=== PATIENT | female | born 1935 | race African-American/Black ===

== ENCOUNTER 2017-10-12 16:04 | Emergency (ER) | payer OTHER ==
[2017-10-12 17:37] LABS: Potassium 4.1 mEq/L (3.6-5.0)
[2017-10-12 17:38] LABS: Absolute Lymphocytes (CBC) 2.7 K/uL (0.7-4.9); Absolute Monocytes 0.4 K/uL (0.1-1.3); Absolute Neutrophil 2.5 K/uL (1.8-8.0); Basophils % 0.6 % (0-1.3); Eosinophils % 6.1 % (0-4.4); Hematocrit 32.8 % (36.0-45.0); Lymphocytes % 44.9 % (15.3-44.8); MCH 30.7 pg (27.0-35.0); MCV 90.6 fL (80-100); MPV 8.5 fL (7.6-11.3); Monocytes % 6.3 % (3.3-12.3); RBC Red Blood Cell Count 3.62 M/uL (3.86-4.86)
[2017-10-12 17:42] LABS: Protime INR 0.99
[2017-10-12 17:43] LABS: Albumin 4.1 g/dL (3.2-5.5); Bilirubin Direct 0.1 mg/dL (0-0.2); Bilirubin Total 0.5 mg/dL (0.3-1.2); Magnesium 1.8 mg/dL (1.8-2.5); Protein, Total 7.9 g/dL (6.0-8.3)
[2017-10-12 17:47] LABS: CKMB Creatine Kinase MB 1.7 ng/ml (0.3-4.0)
--- NOTE | 2017-10-12 17:57 | RAD REPORT ---
EXAM DESCRIPTION: US - Abdomen Exam Limited - 10/12/2017 5:41 pm CLINICAL HISTORY: Abdominal pain. COMPARISON: 2016 FINDINGS: The gallbladder is contracted. This limits evaluation of the lumen. An obvious gallstone i s not seen. The gallbladder wall is not thickened. The biliary tree is normal caliber. IMPRESSION: Contracted gallbladder. If clinically indicated further evaluation with a nuclear medici ne HIDA scan could be obtained
--- NOTE | 2017-10-12 18:04 | RAD REPORT ---
EXAM DESCRIPTION: Riky Single View10/12/2017 5:58 pm CLINICAL HISTORY: Chest pain COMPARISON: June 2016 FINDINGS: The lungs appear clear of acute infiltrate. The heart is normal size IMPRESSION: No acute abnormalities displayed
[2017-10-12 18:21] LABS: Urine Blood NEGATIVE (NEG); Urine Glucose TRACE (NEG); Urine Protein TRACE (NEG); Urine Specific Gravity 1.025 (1.005-1.030)
--- NOTE | 2017-10-12 18:43 | RAD REPORT ---
EXAM DESCRIPTION: CT - Abdomen Pelvis Wo Contrast - 10/12/2017 6:26 pm CLINICAL HISTORY: Abdominal pain right upper quadrant pain x4 days COMPARISON: 2016 TECHNIQUE: Computed axial tomography of the abdomen and pelvis was obtained. IV and oral contrast we re not requested. All CT scans are performed using dose optimization technique as appropriate and may include automated exposure control or mA/KV adjustment according to patient size. FINDINGS: The evaluation of solid organs, vessels and bowel is limited secondary to the lack of con trast administration. An 8 millimeter right renal calculus is present without hydronephrosis. The Hounsfield unit 553. A 5 centimeter left renal cyst is present. Hepatic granulomata are seen. A 23 millimeter low-density mass is present within the spleen. This has enlarged since 2016 Pancreas and adrenals appear grossly normal. The appendix is normal. There is no evidence of diverticulitis. Spondylosis involves lumbar spine resulting spinal stenosis A tiny umbilical hernia contains fat. The gallbladder is contracted IMPRESSION: 8 millimeter nonobstructing right renal calculus Contracted gallbladder 23 millimeter low-density mass within the spleen has enlarged since 2016. Nonemergent splenic ultraso und is recommended for further evaluation
[2017-10-12] MEDS ORDERED: NA CHLORIDE 0.9% 1,000 ML ONE (18:52)
--- NOTE | 2017-10-12 19:30 | EDPHYS ---
Physician Documentation [facility] Name: Geovanna Del Toro Age: 82 yrs Sex: Female : 1935 Arrival Date: 10/12/2017 Time: 16:10 Bed 16 Private MD: ED Physician Kai Castano HPI: 10/12 17:00 This 82 yrs old Black Female presents to ER via Ambulatory with complaints of Chest snw Pain > 30 y/o, Abd Pain > 50 y/o. 17:00 The patient or guardian reports chest pain that is located primarily in the epigastric snw area, anterior chest wall, right. Onset: suddenly, 2 day(s) ago, and became persistent. The pain does not radiate. Associated signs and symptoms: Pertinent positives: abdominal pain, chest pain. The chest pain is described as causing indigestion, a pressure. Duration: The patient or guardian reports multiple episodes, that have now resolved. Severity of pain: At its worst the pain was moderate. It is unknown whether or not the patient has had similar symptoms in the past. The patient has been recently seen by a physician: the patient's primary care provider, with different complaint(s), and apparently was diagnosed with UTI placed on Abx. Historical: - Allergies: 16:28 No Known Allergies; aj - Home Meds: 16:35 atorvastatin 20 mg oral tab 1 tab once daily [Active]; gabapentin 100 mg Oral cap 3 rb1 times per day [Active]; amlodipine 10 mg tab 1 tab once daily [Active]; Zantac 150 mg Oral tab 1 tab 2 times per day [Active]; metoprolol tartrate 100 mg Oral tab 1 tab 2 times per day [Active]; tramadol 50 mg Oral tab 1 tab every 4 hours [Active]; acetaminophen-codeine 300-30 mg Oral tab 1 tab every 4-6 hours [Active]; hydralazine 10 mg Oral tab 1 tab 4 times per day [Active]; losartan-hydrochlorothiazide 100-25 mg Oral tab 1 tab once daily [Active]; - PMHx: 16:28 CVA; Diabetes - IDDM; Hypertension; Hyperlipidemia; aj - PSHx: 16:28 Tubal ligation; aj - Immunization history:: Adult Immunizations up to date. - Social history:: Smoking status: Patient/guardian denies using tobacco. ROS: 16:56 Eyes: Negative for injury, pain, redness, and discharge, ENT: Negative for injury, snw pain, and discharge, Neck: Negative for injury, pain, and swelling, Cardiovascular: Negative for chest pain, palpitations, and edema, Respiratory: Negative for shortness of breath, cough, wheezing, and pleuritic chest pain, Back: Negative for injury and pain, : Negative for injury, bleeding, discharge, and swelling, MS/Extremity: Negative for injury and deformity, Skin: Negative for injury, rash, and discoloration, Neuro: Negative for headache, weakness, numbness, tingling, and seizure. 16:56 : Negative for injury, bleeding, discharge, and swelling, taking abx for UTI x 2 days 16:56 Constitutional: Positive for abdominal and chest pain under right breast. 16:56 Abdomen/GI: Positive for abdominal pain, of the right upper quadrant and epigastric area, worse with lying down. Exam: 16:56 Constitutional: This is a well developed, well nourished patient who is awake, alert, snw and in no acute distress. Head/Face: Normocephalic, atraumatic. Eyes: Pupils equal round and reactive to light, extra-ocular motions intact. Lids and lashes normal. Conjunctiva and sclera are non-icteric and not injected. Cornea within normal limits. Periorbital areas with no swelling, redness, or edema. ENT: Nares patent. No nasal discharge, no septal abnormalities noted. Tympanic membranes are normal and external auditory canals are clear. Oropharynx with no redness, swelling, or masses, exudates, or evidence of obstruction, uvula midline. Mucous membranes moist. Neck: Trachea midline, no thyromegaly or masses palpated, and no cervical lymphadenopathy. Supple, full range of motion without nuchal rigidity, or vertebral point tenderness. No Meningismus. Chest/axilla: Normal chest wall appearance and motion. Nontender with no deformity. No lesions are appreciated. Cardiovascular: Regular rate and rhythm with a normal S1 and S2. No gallops, murmurs, or rubs. Normal PMI, no JVD. No pulse deficits. Respiratory: Lungs have equal breath sounds bilaterally, clear to auscultation and percussion. No rales, rhonchi or wheezes noted. No increased work of breathing, no retractions or nasal flaring. Back: No spinal tenderness. No costovertebral tenderness. Full range of motion. 16:56 Skin: Warm, dry with normal turgor. Normal color with no rashes, no lesions, and no evidence of cellulitis. MS/ Extremity: Pulses equal, no cyanosis. Neurovascular intact. Full, normal range of motion. Neuro: Awake and alert, GCS 15, oriented to person, place, time, and situation. Cranial nerves II-XII grossly intact. Motor strength 5/5 in all extremities. Sensory grossly intact. Cerebellar exam normal. Normal gait. 16:56 Abdomen/GI: Inspection: abdomen appears normal, Bowel sounds: active, all quadrants, Palpation: abdomen is soft and non-tender. Vital Signs: 16:28 BP 153 / 51; Pulse 63; Resp 20; Temp 98.4; Pulse Ox 99% on R/A; Weight 79.38 kg; Height aj 5 ft. 5 in. (165.10 cm); Pain 8/10; 17:30 BP 154 / 58; Pulse 64; Resp 18; Pulse Ox 99% on R/A; rb1 18:40 BP 148 / 63; Pulse 66; Resp 17; Pulse Ox 97% on R/A; mh5 16:28 Body Mass Index 29.12 (79.38 kg, 165.10 cm) aj MDM: 16:34 Patient medically screened. snw 19:27 Data reviewed: vital signs, nurses notes. Data interpreted: Pulse oximetry: on room air snw is 97 %. Interpretation: normal. Counseling: I had a detailed discussion with the patient and/or guardian regarding: the historical points, exam findings, and any diagnostic results supporting the discharge/admit diagnosis, the presence of at least one elevated blood pressure reading (>120/80) during this emergency department visit, lab results, radiology results, the need for outpatient follow up, to return to the emergency department if symptoms worsen or persist or if there are any questions or concerns that arise at home. Special discussion: Based on the patient's history, exam, and Dx evaluation, there is no indication for emergent intervention or inpatient Tx. It is understood by the patient/guardian that if the Sx's persist or worsen they need to return immediately for re-evaluation. Based on the patient's Hx, exam, and Dx evaluation, there is no indication for emergent surgery or inpatient Tx. It is understood by the patient/guardian that if the Sx's persist or worsen they need to return immediately for re-evaluation. I have referred the patient to see his PCP for further evaluation of high blood pressure. Based on the history and exam findings, there is no indication for further emergent testing or inpatient evaluation. I discussed with the patient/guardian the need to see the primary care provider for further evaluation of the symptoms. 19:28 ED course: [facility] contacted, pt is currently on Bactrim. Will stop Bactrim and begin snw Augmentin and Macrobid. 10/12 16:37 Order name: Basic Metabolic Panel; Complete Time: 18:02 snw 10/12 16:37 Order name: BNP; Complete Time: 18:02 snw 10/12 16:37 Order name: CBC with Diff; Complete Time: 18:02 snw 10/12 16:37 Order name: Ckmb; Complete Time: 18:02 snw 10/12 16:37 Order name: CPK; Complete Time: 18:02 snw 10/12 16:37 Order name: LFT's; Complete Time: 18:02 snw 10/12 16:37 Order name: Magnesium; Complete Time: 18:02 snw 10/12 16:37 Order name: PT-INR; Complete Time: 18:02 snw 10/12 16:37 Order name: Ptt, Activated; Complete Time: 18:02 snw 10/12 16:37 Order name: Troponin (emerg Dept Use Only); Complete Time: 17:44 snw 10/12 16:37 Order name: XRAY Chest (1 view); Complete Time: 18:04 snw 10/12 17:04 Order name: Urine Dipstick--Ancillary (enter results); Complete Time: 18:25 ag 10/12 17:10 Order name: US Abdomen Limited; Complete Time: 18:02 snw 10/12 18:10 Order name: CT Abd/Pelvis - Without Cont; Complete Time: 18:51 snw 10/12 16:37 Order name: EKG; Complete Time: 16:38 snw 10/12 16:37 Order name: Cardiac monitoring; Complete Time: 17:21 snw 10/12 16:37 Order name: EKG - Nurse/Tech; Complete Time: 18:24 snw 10/12 16:37 Order name: IV Saline Lock; Complete Time: 17:21 snw 10/12 16:37 Order name: Labs collected and sent; Complete Time: 17:21 snw 10/12 16:37 Order name: O2 Per Protocol; Complete Time: 17:21 snw 10/12 16:37 Order name: O2 Sat Monitoring; Complete Time: 17:21 snw 10/12 16:37 Order name: Urine Dipstick-Ancillary (obtain specimen); Complete Time: 18:24 snw Administered Medications: 19:15 Drug: NS 0.9% 1000 ml {Note: Administered 250 bolus as verbally ordered by JACEK Piña.} ao Route: IV; Rate: 125 ml/hr; Site: left antecubital; 20:24 Follow up: IV Status: Order to discontinue infusion ao 20:10 Drug: Rocephin 1 grams Route: IV; Rate: calculated rate; Site: left antecubital; ao 20:24 Follow up: IV Status: Completed infusion; IV Intake: 10ml ao Disposition: 10/12/17 19:29 Discharged to Home. Impression: Urinary tract infection, site not specified. - Condition is Stable. - Discharge Instructions: Hypertension, Urinary Tract Infection, Abdominal Pain, Women. - Prescriptions for Augmentin 875- 125 mg Oral Tablet - take 1 tablet by ORAL route every 12 hours for 10 days; 20 tablet. Nexium 20 mg Oral Capsule - take 1 capsule by ORAL route once daily; 20 capsule. Macrobid 100 mg Oral Capsule - take 1 capsule by ORAL route every 12 hours for 10 days; 20 capsule. - Medication Reconciliation Form, Thank You Letter, Antibiotic Education, Prescription Opioid Use form. - Follow up: Private Physician; When: 2 - 3 days; Reason: Recheck today's complaints, Continuance of care, Re-evaluation by your physician. Follow up: Emergency Department; When: As needed; Reason: Worsening of condition. Addendum: 10/15/2017 19:01 Co-signature as Attending Physician, Kai Castano MD. g s Signatures: Dispatcher [employer] EDBelkis Worrell RN RN aj Therrien, Shelly, DIGITAL MEDIA STRATEGIST-C DIGITAL MEDIA STRATEGIST-Csnw Germaine Blanco, RN ALBERT [facility] Salazar, Lui, RN RN ao Castano, Kai, MD MD gs
--- NOTE | 2017-10-12 19:30 | ER ---
Nurse's Notes [facility] Name: Geovanna Del Toro Age: 82 yrs Sex: Female : 1935 Arrival Date: 10/12/2017 Time: 16:10 Bed 16 Private MD: Diagnosis: Urinary tract infection, site not specified Presentation: 10/12 16:26 Presenting complaint: Patient states: Right epigastric pain that radiates to RUQ and is aj worse when laying down. Started 4 days ago. Transition of care: patient was not received from another setting of care. Onset of symptoms was October 08, 2017. Initial Sepsis Screen: Does the patient meet any 2 criteria? No. Patient's initial sepsis screen is negative. Does the patient have a suspected source of infection? No. Patient's initial sepsis screen is negative. Care prior to arrival: None. 16:26 Method Of Arrival: Ambulatory aj 16:26 Acuity: ANDERS 3 aj Triage Assessment: 16:28 General: Appears in no apparent distress. comfortable, Behavior is calm, cooperative, aj appropriate for age. Pain: Complains of pain in epigastric area and right upper quadrant Pain currently is 8 out of 10 on a pain scale. Neuro: Level of Consciousness is awake, alert, obeys commands, Oriented to person, place, time, situation. Cardiovascular: Capillary refill < 3 seconds in bilateral fingers Patient's skin is warm and dry. Cardiovascular: Reports since epigastric pain. Respiratory: Reports shortness of breath when laying down flat Airway is patent Respiratory effort is even, unlabored, Respiratory pattern is regular, symmetrical. GI: Reports upper abdominal pain, epigastric pain. Derm: Skin is intact, is healthy with good turgor, Skin is pink, warm \T\ dry. normal. Historical: - Allergies: 16:28 No Known Allergies; aj - Home Meds: 16:35 atorvastatin 20 mg oral tab 1 tab once daily [Active]; gabapentin 100 mg Oral cap 3 rb1 times per day [Active]; amlodipine 10 mg tab 1 tab once daily [Active]; Zantac 150 mg Oral tab 1 tab 2 times per day [Active]; metoprolol tartrate 100 mg Oral tab 1 tab 2 times per day [Active]; tramadol 50 mg Oral tab 1 tab every 4 hours [Active]; acetaminophen-codeine 300-30 mg Oral tab 1 tab every 4-6 hours [Active]; hydralazine 10 mg Oral tab 1 tab 4 times per day [Active]; losartan-hydrochlorothiazide 100-25 mg Oral tab 1 tab once daily [Active]; - PMHx: 16:28 CVA; Diabetes - IDDM; Hypertension; Hyperlipidemia; aj - PSHx: 16:28 Tubal ligation; aj - Immunization history:: Adult Immunizations up to date. - Social history:: Smoking status: Patient/guardian denies using tobacco. Screenin:35 Abuse screen: Denies threats or abuse. Nutritional screening: No deficits noted. rb1 Tuberculosis screening: No symptoms or risk factors identified. Fall Risk None identified. Assessment: 16:35 General: Appears in no apparent distress. comfortable, Behavior is calm, cooperative, rb1 Denies fever. Pain: Complains of pain in epigastric area Pain does not radiate. Pain currently is 8 out of 10 on a pain scale. Pain began Isaiah. Neuro: Level of Consciousness is awake, alert, obeys commands, Oriented to person, place, time, situation. Cardiovascular: Capillary refill < 3 seconds is brisk in bilateral fingers. Respiratory: Reports shortness of breath on exertion Airway is patent Respiratory effort is even, unlabored, Respiratory pattern is regular, symmetrical. GI: No signs and/or symptoms were reported involving the gastrointestinal system. : Reports currently taking antibiotics for a UTI. Derm: Skin is dry, Skin is normal, Skin temperature is warm. 17:30 Reassessment: Patient appears in no apparent distress at this time. No changes from rb1 previously documented assessment. 18:30 Reassessment: Patient appears in no apparent distress at this time. Patient and/or rb1 family updated on plan of care and expected duration. Pain level reassessed. Patient is alert, oriented x 3, equal unlabored respirations, skin warm/dry/pink. Family at bedside. 19:17 General: Appears in no apparent distress. comfortable, Behavior is calm, cooperative. ao Pain: Complains of pain in chest. Neuro: Level of Consciousness is awake, alert, obeys commands, Oriented to person, place, time, situation. Cardiovascular: Capillary refill < 3 seconds is brisk in bilateral fingers. Respiratory: Airway is patent Respiratory effort is even, unlabored, Respiratory pattern is regular, symmetrical. GI: No signs and/or symptoms were reported involving the gastrointestinal system. : No signs and/or symptoms were reported regarding the genitourinary system. EENT: No signs and/or symptoms were reported regarding the EENT system. Derm: Skin is dry, Skin is normal, Skin temperature is warm. Musculoskeletal: Range of motion: intact in all extremities. 20:25 Reassessment: DC Instructions given to patient and family. Patient agree with the POC ao and to follow up. Vital Signs: 16:28 BP 153 / 51; Pulse 63; Resp 20; Temp 98.4; Pulse Ox 99% on R/A; Weight 79.38 kg; Height aj 5 ft. 5 in. (165.10 cm); Pain 8/10; 17:30 BP 154 / 58; Pulse 64; Resp 18; Pulse Ox 99% on R/A; rb1 18:40 BP 148 / 63; Pulse 66; Resp 17; Pulse Ox 97% on R/A; mh5 16:28 Body Mass Index 29.12 (79.38 kg, 165.10 cm) aj ED Course: 16:10 Patient arrived in ED. sb2 16:27 Triage completed. aj 16:28 Arm band placed on right wrist. Patient placed in an exam room. aj 16:34 Germaine Blanco RN is Primary Nurse. rb1 16:34 Ayana Seymour FNP-C is PHCP. snw 16:34 Kai Castano MD is Attending Physician. snw 16:35 Patient has correct armband on for positive identification. Placed in gown. Bed in low rb1 position. Call light in reach. Side rails up X 1. Pulse ox on. NIBP on. 16:35 Patient maintains SpO2 saturation greater than 95% on room air. rb1 16:40 Inserted saline lock: 22 gauge in left antecubital area, using aseptic technique. Blood rb1 collected. 17:40 US Abdomen Limited In Process Unspecified. EDMS 17:49 Note: us done portable. hr 17:56 X-ray completed. Portable x-ray completed in exam room. Patient tolerated procedure kc2 well. 17:57 XRAY Chest (1 view) In Process Unspecified. EDMS 18:26 CT Abd/Pelvis - Without Cont In Process Unspecified. EDMS 19:00 Report given to ALBERT Poe. rb1 20:24 No provider procedures requiring assistance completed. IV discontinued, intact, ao bleeding controlled, No redness/swelling at site. Pressure dressing applied. Administered Medications: 19:15 Drug: NS 0.9% 1000 ml {Note: Administered 250 bolus as verbally ordered by NP. Ayana} ao Route: IV; Rate: 125 ml/hr; Site: left antecubital; 20:24 Follow up: IV Status: Order to discontinue infusion ao 20:10 Drug: Rocephin 1 grams Route: IV; Rate: calculated rate; Site: left antecubital; ao 20:24 Follow up: IV Status: Completed infusion; IV Intake: 10ml ao Intake: 20:24 IV: 10ml; Total: 10ml. ao Outcome: 19:29 Discharge ordered by . snw 20:25 Discharged to home via wheelchair. 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 Demonstrated understanding of instructions, follow-up care, medications, Prescriptions given X 3. 20:33 Patient left the ED. ao Signatures: Dispatcher [employer] EDBelkis Worrell, RN Ayana Siddiqui, GYROSCOPE TECHNICIAN-C GYROSCOPE TECHNICIAN-Csnw Celena Pool Rebecca, RN RN rb1 Lui Salazar RN RN ao Carr, Kelsie kc2 Jesenia Dinh [facility] Alfreda Lam2
[2017-10-12] MEDS ORDERED: CEFTRIAXONE/SWI 1gm 1 GM/10 ML SYR ONE (20:08)
[2017-10-12 20:37] VITALS: TEMP 98.4
[2017-10-12 20:39] VITALS: BP 148/63; O2SAT 97
--- NOTE | 2017-10-13 16:28 | EKG ---
Test Date: 2017-10-12 Test Time: 17:49:44 Java Manager: INGA MEASUREMENT RESULTS: Intervals: Rate: 64 ID: [id number] QRSD: 78 QT: 422 QTc: 435 [place]: P: 82 ID: [id number] QRS: -10 T: 39 INTERPRETIVE STATEMENTS: Sinus rhythm with 1st degree AV block Otherwise normal ECG Compared to ECG 07/19/2016 08:38:42 Left ventricular hypertrophy no longer present Electronically Signed On 10-13-17 16:24:01 CDT by Valdez Peña
== END 2017-10-12 20:33 | disposition home or self-care (01) ==
LOC: ER 16:04
DX: N39.0 Urinary tract infection, site not specified (principal); I10 Essential (primary) hypertension; E11.9 Type 2 diabetes mellitus without complications; E78.5 Hyperlipidemia, unspecified; Z86.73 Personal history of transient ischemic attack (TIA), and cerebral infarction without residual deficits
CPT/HCPCS: 36415; 71045; 74176; 76705; 80048; 80076; 81003; 82550; 82553; 83735; 83880; 84484; 85025; 85610; 85730; 93005; 96361; 96374; 99284; J0696; J7030

== ENCOUNTER 2017-12-18 07:59 | Emergency (ER) | payer OTHER ==
[2017-12-18] MEDS ORDERED: KETOROLAC 30 MG/ML INJ ONE (08:38)
[2017-12-18] MEDS ORDERED: ONDANSETRON 4 MG/2 ML VIAL ONE ×2 (08:39→10:06)
[2017-12-18 08:44] LABS: Absolute Lymphocytes (CBC) 2.4 K/uL (0.7-4.9); Absolute Monocytes 0.3 K/uL (0.1-1.3); Absolute Neutrophil 6.7 K/uL (1.8-8.0); Basophils % 0.4 % (0-1.3); Eosinophils % 0.4 % (0-4.4); Hematocrit 32.5 % (36.0-45.0); Lymphocytes % 25.9 % (15.3-44.8); MCH 30.4 pg (27.0-35.0); MCV 92.9 fL (80-100); MPV 8.1 fL (7.6-11.3)
[2017-12-18 09:07] LABS: Bilirubin Total 0.5 mg/dL (0.2-1.0); Potassium 3.9 mmol/L (3.5-5.1); Protein, Total 8.6 g/dL (6.4-8.2)
[2017-12-18] MEDS ORDERED: MORPHINE 4 MG/ML SYR ONE (10:12)
--- NOTE | 2017-12-18 10:17 | RAD REPORT ---
EXAM DESCRIPTION: CT - Abdomen Pelvis W Contrast - 12/18/2017 9:54 am CLINICAL HISTORY: Abdominal pain, right flank pain, vomiting and diarrhea, history of kidney stones, dysuria COMPARISON: CT imaging May 2016, noncontrast CT imaging September 2017 TECHNIQUE: Biphasic, helical CT imaging of the abdomen and pelvis was performed following 100 ml non -ionic IV contrast. Oral contrast was given. All CT scans are performed using dose optimization technique as appropriate and may include automated exposure control or mA/KV adjustment according to patient size. FINDINGS: No acute findings in the lung bases. Mild bronchiectasis changes are present. No focal liver finding or identifiable change from comparison. Thin-walled cyst in the spleen has not change from September. No pancreatic or peripancreatic acute findings. Partially filled gallbladder show s no suspicious findings. No biliary tree dilatation. Gallstones can be occult. Symmetric renal function is seen with no hydronephrosis or suspicious renal mass. Large 5 centimeter exophytic lateral left renal cyst not clearly different from prior imaging. A 10 millimeter calcifica tion lower pole calyx on the right is present and unchanged. No dilated bowel loops or bowel wall thickening. No appendicitis findings. Diverticulosis is present throughout the colon but no diverticulitis, mass or acute colon process identifiable. No free air, fr ee fluid or inflammatory stranding. No mass or bulky lymphadenopathy. A very small umbilical hernia is present of no significance. The urinary bladder is without significant finding. No adrenal abnorma lity. Multiple phleboliths are seen. Uterus and ovaries show no suspicious findings. Disc and bone degenerative changes are present. No acute or destructive bone process. Vascular calcif ications are present without acute finding. IMPRESSION: Colonic diverticulosis without diverticulitis. No acute findings seen to explain lower a bdominal pain and flank pain. Patient has a stable 10 mm calcification lower pole right kidney. No obstructive component.
[2017-12-18 10:21] LABS: Urine Blood 2+ (NEG); Urine Glucose 2+ (NEG); Urine Protein 1+ (NEG); Urine Specific Gravity 1.025 (1.005-1.030)
[2017-12-18 10:21] LABS: Urine Bacteria >50 /HPF (<20); Urine Culture Reflex Order REFLEXED; Urine RBC >50 /HPF (NONE SEEN)
--- NOTE | 2017-12-18 10:56 | EDPHYS ---
Physician Documentation [facility] Name: Geovanna Del Toro Age: 82 yrs Sex: Female : 1935 Arrival Date: 12/18/2017 Time: 08:02 Bed 6 Private MD: Eladio Elder ED Physician Marcel Castellano HPI: 12/18 08:18 This 82 yrs old Black Female presents to ER via Unassigned with complaints of Abdominal ps1 Pain, Nausea/Vomiting/Diarrhea. 08:18 onset was last night. Abdominal pain additionally, states it started periumbilically ps1 and now right flank. She states that she has a history of kidney stones also. Pain rated as moderate. No dysuria. Has chills. . Historical: - Allergies: 08:25 NKA; iw - Home Meds: 08:25 acetaminophen-codeine 300-30 mg Oral tab 1 tab every 4-6 hours [Active]; amlodipine 10 iw mg tab 1 tab once daily [Active]; atorvastatin 20 mg Oral tab 1 tab once daily [Active]; gabapentin 100 mg Oral cap 3 times per day [Active]; hydralazine 10 mg Oral tab 1 tab 4 times per day [Active]; losartan-hydrochlorothiazide 100-25 mg Oral tab 1 tab once daily [Active]; metoprolol tartrate 100 mg Oral tab 1 tab 2 times per day [Active]; tramadol 50 mg Oral tab 1 tab every 4 hours [Active]; Zantac 150 mg Oral tab 1 tab 2 times per day [Active]; - PMHx: 08:25 CVA; Diabetes - IDDM; Hyperlipidemia; Hypertension; Kidney stones; iw - PSHx: 08:25 Tubal ligation; iw - Immunization history:: Adult Immunizations up to date. - Ebola Screening: : Patient negative for fever greater than or equal to 101.5 degrees Fahrenheit, and additional compatible Ebola Virus Disease symptoms Patient denies exposure to infectious person Patient denies travel to an Ebola-affected area in the 21 days before illness onset No symptoms or risks identified at this time. - Social history:: Smoking status: Patient/guardian denies using tobacco, Patient/guardian denies using alcohol. ROS: 08:18 Constitutional: Negative for fever, chills, and weight loss, Eyes: Negative for injury, ps1 pain, redness, and discharge, ENT: Negative for injury, pain, and discharge, Cardiovascular: Negative for chest pain, palpitations, and edema, Respiratory: Negative for shortness of breath, cough, wheezing, and pleuritic chest pain, Back: Negative for injury and pain, MS/Extremity: Negative for injury and deformity, Skin: Negative for injury, rash, and discoloration. 08:18 Abdomen/GI: Positive for abdominal pain, nausea, vomiting, and diarrhea. 08:18 : Positive for flank pain. Exam: 08:18 Constitutional: This is a well developed, well nourished patient who is awake, alert, ps1 and in no acute distress. Head/Face: Normocephalic, atraumatic. Eyes: Pupils equal round and reactive to light, extra-ocular motions intact. Lids and lashes normal. Conjunctiva and sclera are non-icteric and not injected. Cardiovascular: Regular rate and rhythm. No gallops, murmurs, or rubs. Normal PMI, no JVD. No pulse deficits. Respiratory: Lungs have equal breath sounds bilaterally, clear to auscultation and percussion. No rales, rhonchi or wheezes noted. No increased work of breathing, no retractions or nasal flaring. Abdomen/GI: Soft, non-tender, with normal bowel sounds. No distension or tympany. No guarding or rebound. No evidence of tenderness throughout. Skin: Warm, dry with normal turgor. Normal color with no rashes, no lesions, and no evidence of cellulitis. Vital Signs: 08:25 BP 106 / 77; Pulse 75; Resp 16; Pulse Ox 100% on R/A; iw 09:12 BP 141 / 69; Pulse 78; Resp 22; Pulse Ox 96% on R/A; Pain 2/10; ch 10:44 BP 145 / 68; Pulse 75; Resp 14; Temp 98.5; Pulse Ox 98% on R/A; Pain 3/10; ch 11:01 BP 133 / 59; Pulse 68; Resp 14; Temp 98; Pulse Ox 95% on R/A; Pain 1/10; ch MDM: 08:22 Patient medically screened. ps1 12/18 08:22 Order name: CBC with Diff ps1 12/18 08:22 Order name: Lipase ps1 12/18 08:22 Order name: Urine Microscopic Only 12/18 08:22 Order name: CMP ps1 12/18 08:23 Order name: CBC with Automated Diff; Complete Time: 09:13 EDMS 12/18 08:23 Order name: Lipase; Complete Time: 09:13 EDMS 12/18 08:22 Order name: CT Abd/Pelvis - W/Contrast; Complete Time: 10:18 ps1 12/18 08:23 Order name: Urine Microscopic Only; Complete Time: 10:36 EDMS 12/18 08:23 Order name: Comprehensive Metabolic Panel; Complete Time: 09:13 EDMS 12/18 09:48 Order name: Urine Dipstick--Ancillary (enter results); Complete Time: 10:36 ag 12/18 10:22 Order name: Urine Culture EDMS 12/18 08:22 Order name: Urine Test (obtain specimen); Complete Time: 10:02 ps1 12/18 08:22 Order name: IV Saline Lock; Complete Time: 08:34 ps1 12/18 08:22 Order name: Labs collected and sent; Complete Time: 08:34 ps1 12/18 08:22 Order name: Urine Dipstick-Ancillary (obtain specimen); Complete Time: 10:02 ps1 Administered Medications: 08:30 Drug: TORadol 30 mg Route: IVP; Site: left antecubital; hj 10:02 Follow up: Response: No adverse reaction; Marked relief of symptoms ch 08:30 Drug: Zofran 4 mg Route: IVP; Site: left antecubital; hj 10:01 Follow up: Response: No adverse reaction; Marked relief of symptoms ch 10:12 Drug: Zofran 4 mg Route: IVP; Site: left antecubital; ch 10:43 Follow up: Response: No adverse reaction; Marked relief of symptoms ch 10:14 Drug: morphine 4 mg Route: IVP; Site: left antecubital; ch 10:43 Follow up: Response: No adverse reaction; Marked relief of symptoms ch 10:42 CANCELLED (ROcephin given IV push at this facility): Rocephin - (cefTRIAXone) 1 grams ch IVPB once over 30 mins; (mix in 50 mL NS) 11:01 Drug: Rocephin 1 grams Route: IV; Rate: calculated rate; Infused Over: 10 mins; Site: ch left antecubital; 11:25 Follow up: Response: No adverse reaction; IV Status: Completed infusion; IV Intake: 10mlch Disposition: 12/18/17 10:55 Discharged to Home. Impression: Nausea and vomiting, acute cystitis. - Condition is Stable. - Discharge Instructions: Nausea and Vomiting, Urinary Tract Infection. - Prescriptions for Keflex 500 mg Oral Capsule - take 1 capsule by ORAL route every 12 hours for 10 days; 20 capsule. Zofran 4 mg Oral Tablet - take 1 tablet by ORAL route every 12 hours As needed; 20 tablet. - Medication Reconciliation Form, Thank You Letter, Antibiotic Education, Prescription Opioid Use form. - Follow up: Eladio Elder DO; When: As needed; Reason: Recheck today's complaints, Continuance of care, Re-evaluation by your physician. Follow up: Emergency Department; When: As needed; Reason: Fever > 102 F, Worsening of condition. - Problem is new. - Symptoms have improved. Signatures: Dispatcher [employer] EDMS Mary Barrera RN RN ch Williams, Irene, RN RN George Villalobos RN RN Marcel Castellano MD MD ps1 Corrections: (The following items were deleted from the chart) 10:42 10:36 Rocephin - (cefTRIAXone) 1 grams IVPB once over 30 mins; (mix in 50 mL NS) ch ordered. ps1 11:26 10:55 12/18/2017 10:55 Discharged to Home. Impression: Nausea and vomiting; acute ch cystitis. Condition is Stable. Forms are Medication Reconciliation Form, Thank You Letter, Antibiotic Education, Prescription Opioid Use. Follow up: Eladio Elder; When: As needed; Reason: Recheck today's complaints, Continuance of care, Re-evaluation by your physician. Follow up: Emergency Department; When: As needed; Reason: Fever > 102 F, Worsening of condition. Problem is new. Symptoms have improved. ps1
--- NOTE | 2017-12-18 10:56 | ER ---
Nurse's Notes [facility] Name: Geovanna Del Toro Age: 82 yrs Sex: Female : 1935 Arrival Date: 12/18/2017 Time: 08:02 Bed 6 Private MD: Eladio Elder Diagnosis: Nausea and vomiting;acute cystitis Presentation: 12/18 08:21 Presenting complaint: Patient states: has had low abd pain radiating to right flank iw since 399 today, also has vomiting and diarrhea, hx of kidney stones, also had burning with urination on Monday. Transition of care: patient was not received from another setting of care. Onset of symptoms was December 18, 2017. Risk Assessment: Do you want to hurt yourself or someone else? Patient reports no desire to harm self or others. Initial Sepsis Screen: Does the patient meet any 2 criteria? No. Patient's initial sepsis screen is negative. Does the patient have a suspected source of infection? No. Patient's initial sepsis screen is negative. Care prior to arrival: None. 08:21 Method Of Arrival: Wheelchair iw 08:21 Acuity: ANDERS 3 iw Triage Assessment: 08:18 General: Appears in no apparent distress. uncomfortable, Behavior is cooperative, hj appropriate for age, anxious. Pain: Complains of pain in abdomen Pain currently is 10 out of 10 on a pain scale. EENT: No signs and/or symptoms were reported regarding the EENT system. Neuro: Level of Consciousness is awake, alert, obeys commands, Oriented to person, place, time, situation, Appropriate for age. Cardiovascular: Heart tones S1 S2 present Capillary refill < 3 seconds Patient's skin is warm and dry. Respiratory: Airway is patent Respiratory effort is even, unlabored, Respiratory pattern is regular, symmetrical. GI: Reports lower abdominal pain, upper abdominal pain, diarrhea, nausea, vomiting. : No signs and/or symptoms were reported regarding the genitourinary system. Derm: No signs and/or symptoms reported regarding the dermatologic system. Musculoskeletal: No signs and/or symptoms reported regarding the musculoskeletal system. Historical: - Allergies: 08:25 NKA; iw - Home Meds: 08:25 acetaminophen-codeine 300-30 mg Oral tab 1 tab every 4-6 hours [Active]; amlodipine 10 iw mg tab 1 tab once daily [Active]; atorvastatin 20 mg Oral tab 1 tab once daily [Active]; gabapentin 100 mg Oral cap 3 times per day [Active]; hydralazine 10 mg Oral tab 1 tab 4 times per day [Active]; losartan-hydrochlorothiazide 100-25 mg Oral tab 1 tab once daily [Active]; metoprolol tartrate 100 mg Oral tab 1 tab 2 times per day [Active]; tramadol 50 mg Oral tab 1 tab every 4 hours [Active]; Zantac 150 mg Oral tab 1 tab 2 times per day [Active]; - PMHx: 08:25 CVA; Diabetes - IDDM; Hyperlipidemia; Hypertension; Kidney stones; iw - PSHx: 08:25 Tubal ligation; iw - Immunization history:: Adult Immunizations up to date. - Ebola Screening: : Patient negative for fever greater than or equal to 101.5 degrees Fahrenheit, and additional compatible Ebola Virus Disease symptoms Patient denies exposure to infectious person Patient denies travel to an Ebola-affected area in the 21 days before illness onset No symptoms or risks identified at this time. - Social history:: Smoking status: Patient/guardian denies using tobacco, Patient/guardian denies using alcohol. Screenin:18 Abuse screen: Denies threats or abuse. Denies injuries from another. Nutritional hj screening: No deficits noted. Tuberculosis screening: No symptoms or risk factors identified. Fall Risk None identified. Assessment: 08:18 GI: Bowel sounds present X 4 quads. Abd is soft Abdomen is tender to palpation. hj 09:12 Reassessment: Patient appears in no apparent distress at this time. Patient and/or ch family updated on plan of care and expected duration. Pain level reassessed. Patient is alert, oriented x 3, equal unlabored respirations, skin warm/dry/pink. Patient states feeling better. Patient states symptoms have improved. General: Appears in no apparent distress. comfortable, Behavior is calm, cooperative, appropriate for age. Neuro: Level of Consciousness is awake, alert, obeys commands, Oriented to person, place, time, situation, Moves all extremities. Respiratory: Airway is patent Respiratory effort is even, unlabored, Breath sounds are clear bilaterally. : No signs and/or symptoms were reported regarding the genitourinary system. Derm: Skin is pink, warm \T\ dry. Musculoskeletal: Circulation, motion, and sensation intact. 10:18 Reassessment: Patient appears in no apparent distress at this time. Patient and/or ch family updated on plan of care and expected duration. Pain level reassessed. Patient is alert, oriented x 3, equal unlabored respirations, skin warm/dry/pink. 10:44 Reassessment: Patient appears in no apparent distress at this time. pt returns from CT ch vomiting. pt medicated per orders, now states she is better and comfortable. 11:01 Reassessment: Patient appears in no apparent distress at this time. Patient and/or ch family updated on plan of care and expected duration. Pain level reassessed. Patient is alert, oriented x 3, equal unlabored respirations, skin warm/dry/pink. Patient denies pain at this time. Patient states feeling better. Patient states symptoms have improved. Vital Signs: 08:25 BP 106 / 77; Pulse 75; Resp 16; Pulse Ox 100% on R/A; iw 09:12 BP 141 / 69; Pulse 78; Resp 22; Pulse Ox 96% on R/A; Pain 2/10; ch 10:44 BP 145 / 68; Pulse 75; Resp 14; Temp 98.5; Pulse Ox 98% on R/A; Pain 3/10; ch 11:01 BP 133 / 59; Pulse 68; Resp 14; Temp 98; Pulse Ox 95% on R/A; Pain 1/10; ch ED Course: 08:02 Patient arrived in ED. mr 08:03 Eladio Elder DO is Private Physician. mr 08:11 Marcel Castellano MD is Attending Physician. ps1 08:24 Triage completed. iw 08:25 Arm band placed on. iw 08:25 Patient has correct armband on for positive identification. Placed in gown. Bed in low hj position. Call light in reach. Side rails up X 1. 08:30 Initial lab(s) drawn, by me, sent to lab. Inserted saline lock: 22 gauge in right hj antecubital area, using aseptic technique. Blood collected. 08:43 George Villalobos, RN is Primary Nurse. hj 09:11 Primary Nurse role handed off by George Villalobos, RN ch 09:11 Mary Barrera, ALBERT is Primary Nurse. ch 09:12 No apparent distress. Resting quietly. ch 09:12 Warm blanket given. ch 09:12 No provider procedures requiring assistance completed. ch 09:53 CT completed. Patient tolerated procedure well. Patient moved to CT via stretcher. Patient moved back from CT. 09:54 CT Abd/Pelvis - W/Contrast In Process Unspecified. EDMS 10:44 Pulse ox on. NIBP on. ch 10:55 Eladio Elder DO is Referral Physician. ps1 11:25 IV discontinued, intact, bleeding controlled, No redness/swelling at site. Pressure ch dressing applied. Administered Medications: 08:30 Drug: TORadol 30 mg Route: IVP; Site: left antecubital; hj 10:02 Follow up: Response: No adverse reaction; Marked relief of symptoms ch 08:30 Drug: Zofran 4 mg Route: IVP; Site: left antecubital; hj 10:01 Follow up: Response: No adverse reaction; Marked relief of symptoms ch 10:12 Drug: Zofran 4 mg Route: IVP; Site: left antecubital; ch 10:43 Follow up: Response: No adverse reaction; Marked relief of symptoms ch 10:14 Drug: morphine 4 mg Route: IVP; Site: left antecubital; ch 10:43 Follow up: Response: No adverse reaction; Marked relief of symptoms ch 10:42 CANCELLED (ROcephin given IV push at this facility): Rocephin - (cefTRIAXone) 1 grams IVPB once over 30 mins; (mix in 50 mL NS) 11:01 Drug: Rocephin 1 grams Route: IV; Rate: calculated rate; Infused Over: 10 mins; Site: left antecubital; 11:25 Follow up: Response: No adverse reaction; IV Status: Completed infusion; IV Intake: 10mlch Intake: 11:25 IV: 10ml; Total: 10ml. ch Outcome: 10:55 Discharge ordered by MD. ps1 11:24 Discharged to home via wheelchair, with family. ch 11:24 Condition: improved 11:24 Discharge instructions given to patient, family, Instructed on discharge instructions, follow up and referral plans. medication usage, Demonstrated understanding of instructions, follow-up care, medications, Prescriptions given X 2. 11:26 Patient left the ED. ch Signatures: Dispatcher [employer] EDMS Mary Barrera RN RN ch Rivera, Maria mr Jones, Susan Mart, Sonia, RN George Day RN RN Marcel Rojas MD MD ps1
[2017-12-18] MEDS ORDERED: CEFTRIAXONE/SWI 1gm 1 GM/10 ML SYR ONE (10:58)
[2017-12-18 11:33] VITALS: BP 133/59; TEMP 98; O2SAT 95
== END 2017-12-18 11:26 | disposition home or self-care (01) ==
LOC: ER 07:59
DX: N30.00 Acute cystitis without hematuria (principal); I10 Essential (primary) hypertension; E11.9 Type 2 diabetes mellitus without complications; E78.5 Hyperlipidemia, unspecified
CPT/HCPCS: 36415; 74177; 80053; 83690; 85025; 87086; 87088; 96365; 96375; 99284; J0696; J2405 ×2; Q9967; 81003; 81015

== ENCOUNTER 2018-09-07 10:27 | Emergency (ER) | payer OTHER ==
[2018-09-07 11:00] LABS: Protime INR 0.96
[2018-09-07 11:01] LABS: Absolute Lymphocytes (CBC) 2.5 K/uL (0.7-4.9); Absolute Monocytes 0.4 K/uL (0.1-1.3); Basophils % 0.9 % (0-1.3); Eosinophils % 2.1 % (0-4.4); Hematocrit 33.1 % (36.0-45.0); Lymphocytes % 40.9 % (15.3-44.8); MPV 8.5 fL (7.6-11.3); Monocytes % 6.6 % (3.3-12.3); RBC Red Blood Cell Count 3.55 M/uL (3.86-4.86)
[2018-09-07 11:31] LABS: ALT/SGPT 16 U/L (12-78); AST/SGOT 14 U/L (15-37); Albumin 3.7 g/dL (3.4-5.0); Alkaline Phosphatase 74 U/L (45-117); BUN Blood Urea Nitrogen 24 mg/dL (7-18); Bicarbonate 27 mmol/L (21-32); Bilirubin Direct 0.1 mg/dL (0-0.2); Bilirubin Total 0.5 mg/dL (0.2-1.0); Glucose Level 135 mg/dL (74-106); Magnesium 2.1 mg/dL (1.8-2.4); NT PRO-BNP 602 pg/mL (<450); Potassium 3.8 mmol/L (3.5-5.1); Sodium Level 142 mmol/L (136-145); Troponin (Emerg Dept Use Only) < 0.02 ng/mL (0.0-0.045)
--- NOTE | 2018-09-07 11:39 | RAD REPORT ---
EXAM DESCRIPTION: Riky Single View09/07/2018 11:29 am CLINICAL HISTORY: Chest pain COMPARISON: September 2017 FINDINGS: The lungs appear clear of acute infiltrate. Calcified hilar lymph nodes present. A calcif ied lung granuloma is seen. The heart is normal size IMPRESSION: No acute abnormalities displayed
--- NOTE | 2018-09-07 12:39 | EDPHYS ---
Physician Documentation [facility] Name: Geovanna Del Toro Age: 83 yrs Sex: Female : 1935 Arrival Date: 09/07/2018 Time: 10:28 Bed 14 Private MD: Eladio Elder ED Physician Felix Oakes HPI: 09/07 12:35 This 83 yrs old Black Female presents to ER via Ambulatory with complaints of Right pm1 shoulder and right sided chest pain. 12:35 The patient or guardian complains of pain, that is acute. right shoulder and right pm1 chest. Context: The problem was sustained at home, resulted from working on dishes, The patient experiences decreased range of motion, when rotates arm, The patient reports no obvious deformity. Onset: The symptoms/episode began/occurred yesterday. Modifying factors: the symptoms are alleviated by remaining still, The symptoms are aggravated by movement, rotation of arm. Associated signs and symptoms: Pertinent negatives: abdominal pain, neck pain, Numbness in right arm tingling, Weakness in right arm. Severity of symptoms: in the emergency department the symptoms are unchanged. Treatment prior to arrival includes: no previous treatment. The patient has not experienced similar symptoms in the past. The patient has not recently seen a physician. Historical: - Allergies: 10:35 NKA; ch - Home Meds: 10:35 acetaminophen-codeine 300-30 mg Oral tab 1 tab every 4-6 hours [Active]; amlodipine 10 ch mg tab 1 tab once daily [Active]; atorvastatin 20 mg Oral tab 1 tab once daily [Active]; gabapentin 100 mg Oral cap 3 times per day [Active]; hydralazine 10 mg Oral tab 1 tab 4 times per day [Active]; losartan-hydrochlorothiazide 100-25 mg Oral tab 1 tab once daily [Active]; metoprolol tartrate 100 mg Oral tab 1 tab 2 times per day [Active]; tramadol 50 mg Oral tab 1 tab every 4 hours [Active]; Zantac 150 mg Oral tab 1 tab 2 times per day [Active]; - PMHx: 10:35 CVA; Diabetes - IDDM; Hyperlipidemia; Hypertension; Kidney stones; ch - PSHx: 10:35 Tubal ligation; ch - Immunization history:: Adult Immunizations up to date. - Social history:: Smoking status: Patient/guardian denies using tobacco, Patient/guardian denies using alcohol, street drugs. - Ebola Screening: : Patient negative for fever greater than or equal to 101.5 degrees Fahrenheit, and additional compatible Ebola Virus Disease symptoms Patient denies exposure to infectious person Patient denies travel to an Ebola-affected area in the 21 days before illness onset No symptoms or risks identified at this time. ROS: 12:35 Constitutional: Negative for fever, chills, and weight loss, Eyes: Negative for injury, pm1 pain, redness, and discharge, ENT: Negative for injury, pain, and discharge, Neck: Negative for injury, pain, and swelling. 12:35 Respiratory: Negative for shortness of breath, cough, wheezing, and pleuritic chest pain, Abdomen/GI: Negative for abdominal pain, nausea, vomiting, diarrhea, and constipation, Back: Negative for injury and pain, : Negative for injury, bleeding, discharge, and swelling, MS/Extremity: Negative for injury and deformity, Skin: Negative for injury, rash, and discoloration, Neuro: Negative for headache, weakness, numbness, tingling, and seizure. 12:35 Cardiovascular: Positive for chest pain, Negative for edema, orthopnea, palpitations, paroxysmal nocturnal dyspnea. Exam: 12:35 Constitutional: This is a well developed, well nourished patient who is awake, alert, pm1 and in no acute distress. Head/Face: Normocephalic, atraumatic. Eyes: Pupils equal round and reactive to light, extra-ocular motions intact. Lids and lashes normal. Conjunctiva and sclera are non-icteric and not injected. Cornea within normal limits. Periorbital areas with no swelling, redness, or edema. ENT: Nares patent. No nasal discharge, no septal abnormalities noted. Tympanic membranes are normal and external auditory canals are clear. Oropharynx with no redness, swelling, or masses, exudates, or evidence of obstruction, uvula midline. Mucous membranes moist. Neck: Trachea midline, no thyromegaly or masses palpated, and no cervical lymphadenopathy. Supple, full range of motion without nuchal rigidity, or vertebral point tenderness. No Meningismus. 12:35 Cardiovascular: Regular rate and rhythm with a normal S1 and S2. No gallops, murmurs, or rubs. Normal PMI, no JVD. No pulse deficits. Respiratory: Lungs have equal breath sounds bilaterally, clear to auscultation and percussion. No rales, rhonchi or wheezes noted. No increased work of breathing, no retractions or nasal flaring. Abdomen/GI: Soft, non-tender, with normal bowel sounds. No distension or tympany. No guarding or rebound. No evidence of tenderness throughout. Back: No spinal tenderness. No costovertebral tenderness. Full range of motion. Skin: Warm, dry with normal turgor. Normal color with no rashes, no lesions, and no evidence of cellulitis. MS/ Extremity: Pulses equal, no cyanosis. Neurovascular intact. Full, normal range of motion. 12:35 Chest/axilla: Inspection: normal, Palpation: tenderness, that is mild, of the anterior aspect of right upper chest, that totally reproduces the patient's complaints, reproduced with rotating patient's right arm. 12:35 Neuro: Orientation: is normal, Motor: is normal, moves all fours. Vital Signs: 10:35 BP 142 / 66; Pulse 84; Resp 16; Temp 98.2; Pulse Ox 95% on R/A; Weight 86.64 kg; Height ch 5 ft. 5 in. (165.10 cm); Pain 9/10; 12:00 BP 123 / 72; Pulse 78; Resp 18; Pulse Ox 99% on R/A; Pain 9/10; em 13:12 BP 149 / 73; Pulse 86; Resp 18; Pulse Ox 99% on R/A; em 10:35 Body Mass Index 31.78 (86.64 kg, 165.10 cm) MDM: 11:11 Patient medically screened. pm1 11:49 Data reviewed: vital signs. Data interpreted: Pulse oximetry: on room air is 95 %. pm1 Interpretation: normal. 12:37 Counseling: I had a detailed discussion with the patient and/or guardian regarding: the pm1 historical points, exam findings, and any diagnostic results supporting the discharge/admit diagnosis, lab results, radiology results, the need for outpatient follow up, to return to the emergency department if symptoms worsen or persist or if there are any questions or concerns that arise at home. 09/07 10:40 Order name: Basic Metabolic Panel; Complete Time: 11:38 09/07 10:40 Order name: CBC with Diff; Complete Time: 11:11 09/07 10:40 Order name: LFT's; Complete Time: 11:38 09/07 10:40 Order name: Magnesium; Complete Time: 11:38 09/07 10:40 Order name: NT PRO-BNP; Complete Time: 11:38 09/07 10:40 Order name: PT-INR; Complete Time: 11:38 09/07 10:40 Order name: Troponin (emerg Dept Use Only); Complete Time: 11:38 09/07 10:40 Order name: XRAY Chest (1 view); Complete Time: 11:44 09/07 10:40 Order name: EKG; Complete Time: 10:41 09/07 10:40 Order name: Cardiac monitoring; Complete Time: 11:58 09/07 10:40 Order name: EKG - Nurse/Tech; Complete Time: 11:00 09/07 12:56 Order name: Urine Microscopic Only em 09/07 12:58 Order name: Urine Dipstick--Ancillary (enter results) 09/07 10:40 Order name: IV Saline Lock; Complete Time: 11:00 09/07 10:40 Order name: Labs collected and sent; Complete Time: 11:00 09/07 10:40 Order name: O2 Per Protocol; Complete Time: 11:58 09/07 10:40 Order name: O2 Sat Monitoring; Complete Time: 11:58 ch Administered Medications: 13:01 Drug: Valium 2 mg Route: PO; em 13:12 Follow up: Response: No adverse reaction em Disposition: 13:46 Co-signature as Attending Physician, Felix Oakes MD I agree with the assessment and anel plan of care. Disposition: 09/07/18 12:38 Discharged to Home. Impression: Strain of muscle, fascia and tendon at neck level, Strain of muscle and tendon of front wall of thorax, Urinary tract infection, site not specified. - Condition is Stable. - Discharge Instructions: Muscle Strain, Urinary Tract Infection, Adult. - Prescriptions for cefpodoxime 100 mg Oral Tablet - take 1 tablet by ORAL route every 12 hours for 10 days take with food; 20 tablet. - Medication Reconciliation Form, Thank You Letter, Antibiotic Education, Prescription Opioid Use form. - Follow up: Emergency Department; When: As needed; Reason: Worsening of condition. Follow up: Private Physician; When: 2 - 3 days; Reason: Recheck today's complaints, Continuance of care, Re-evaluation by your physician. - Problem is new. - Symptoms have improved. Signatures: Dispatcher [employer] Mary Pal, RN Felix Gonzalez ch, MD MD cha Munoz, Oliver, LAY OUT MACHINE OPERATOR LAY OUT MACHINE OPERATOR em Nathan Howe, PLATE PAINTER PLATE PAINTER pm1 Corrections: (The following items were deleted from the chart) 13:01 12:38 09/07/2018 12:38 Discharged to Home. Impression: Strain of muscle, fascia and pm1 tendon at neck level; Strain of muscle and tendon of front wall of thorax. Condition is Stable. Forms are Medication Reconciliation Form, Thank You Letter, Antibiotic Education, Prescription Opioid Use. Follow up: Emergency Department; When: As needed; Reason: Worsening of condition. Follow up: Private Physician; When: 2 - 3 days; Reason: Recheck today's complaints, Continuance of care, Re-evaluation by your physician. Problem is new. Symptoms have improved. pm1 13:13 13:01 09/07/2018 12:38 Discharged to Home. Impression: Strain of muscle, fascia and em tendon at neck level; Strain of muscle and tendon of front wall of thorax; Urinary tract infection, site not specified. Condition is Stable. Discharge Instructions: Muscle Strain. Forms are Medication Reconciliation Form, Thank You Letter, Antibiotic Education, Prescription Opioid Use. Follow up: Emergency Department; When: As needed; Reason: Worsening of condition. Follow up: Private Physician; When: 2 - 3 days; Reason: Recheck today's complaints, Continuance of care, Re-evaluation by your physician. Problem is new. Symptoms have improved. pm1
--- NOTE | 2018-09-07 12:39 | ER ---
Nurse's Notes [facility] Name: Geovanna Del Toro Age: 83 yrs Sex: Female : 1935 Arrival Date: 09/07/2018 Time: 10:28 Bed 14 Private MD: Eladio Elder Diagnosis: Strain of muscle, fascia and tendon at neck level;Strain of muscle and tendon of front wall of thorax;Urinary tract infection, site not specified Presentation: 09/07 10:33 Presenting complaint: Patient states: chest pain to R upper chest wall since yesterday at 1800. denies SOB, states she was washing dishes when it started. Transition of care: patient was not received from another setting of care. Onset of symptoms was September 06, 2018 at 18:00. Risk Assessment: Do you want to hurt yourself or someone else? Patient reports no desire to harm self or others. Initial Sepsis Screen: Does the patient meet any 2 criteria? No. Patient's initial sepsis screen is negative. Does the patient have a suspected source of infection? No. Patient's initial sepsis screen is negative. Care prior to arrival: None. 10:33 Method Of Arrival: Ambulatory 10:33 Acuity: ANDERS 3 Triage Assessment: 10:35 General: Appears in no apparent distress. comfortable, Behavior is calm, cooperative, ch appropriate for age. Pain: Complains of pain in right clavicle, anterior aspect of right upper chest and right arm Pain currently is 5 out of 10 on a pain scale. at worst was 9 out of 10 on a pain scale. Cardiovascular: Reports chest pain. Historical: - Allergies: 10:35 NKA; ch - Home Meds: 10:35 acetaminophen-codeine 300-30 mg Oral tab 1 tab every 4-6 hours [Active]; amlodipine 10 ch mg tab 1 tab once daily [Active]; atorvastatin 20 mg Oral tab 1 tab once daily [Active]; gabapentin 100 mg Oral cap 3 times per day [Active]; hydralazine 10 mg Oral tab 1 tab 4 times per day [Active]; losartan-hydrochlorothiazide 100-25 mg Oral tab 1 tab once daily [Active]; metoprolol tartrate 100 mg Oral tab 1 tab 2 times per day [Active]; tramadol 50 mg Oral tab 1 tab every 4 hours [Active]; Zantac 150 mg Oral tab 1 tab 2 times per day [Active]; - PMHx: 10:35 CVA; Diabetes - IDDM; Hyperlipidemia; Hypertension; Kidney stones; ch - PSHx: 10:35 Tubal ligation; ch - Immunization history:: Adult Immunizations up to date. - Social history:: Smoking status: Patient/guardian denies using tobacco, Patient/guardian denies using alcohol, street drugs. - Ebola Screening: : Patient negative for fever greater than or equal to 101.5 degrees Fahrenheit, and additional compatible Ebola Virus Disease symptoms Patient denies exposure to infectious person Patient denies travel to an Ebola-affected area in the 21 days before illness onset No symptoms or risks identified at this time. Screenin:18 Abuse screen: Denies threats or abuse. Nutritional screening: No deficits noted. em Tuberculosis screening: No symptoms or risk factors identified. Fall Risk None identified. Assessment: 10:59 Reassessment: Patient appears in no apparent distress at this time. pt in restroom to give urine sample. verb understanding of returning to room 14 when finished, and to pull chain for any assistance/concerns. 11:20 General: Appears in no apparent distress. comfortable, Behavior is calm, cooperative. em Pain: Complains of pain in anterior aspect of right upper chest Pain radiates to anterior aspect of right upper chest Pain currently is 9 out of 10 on a pain scale. Pain began 1 day ago. Neuro: Level of Consciousness is awake, alert, obeys commands, Oriented to person, place, time, situation. Cardiovascular: Denies diaphoresis, nausea, shortness of breath, Heart tones S1 S2 present Capillary refill < 3 seconds Patient's skin is warm and dry. Rhythm is regular. Respiratory: Airway is patent Respiratory effort is even, unlabored, Respiratory pattern is regular, symmetrical, Breath sounds are clear bilaterally. GI: Abdomen is flat. Derm: Skin is intact, is healthy with good turgor, Skin is pink, warm \T\ dry. Musculoskeletal: Capillary refill < 3 seconds, Range of motion: intact in all extremities. 12:00 Reassessment: Patient appears in no apparent distress at this time. Patient and/or em family updated on plan of care and expected duration. Pain level reassessed. Patient is alert, oriented x 3, equal unlabored respirations, skin warm/dry/pink. 13:12 Reassessment: Patient appears in no apparent distress at this time. Patient and/or em family updated on plan of care and expected duration. Pain level reassessed. Patient is alert, oriented x 3, equal unlabored respirations, skin warm/dry/pink. Vital Signs: 10:35 BP 142 / 66; Pulse 84; Resp 16; Temp 98.2; Pulse Ox 95% on R/A; Weight 86.64 kg; Height ch 5 ft. 5 in. (165.10 cm); Pain 9/10; 12:00 BP 123 / 72; Pulse 78; Resp 18; Pulse Ox 99% on R/A; Pain 9/10; em 13:12 BP 149 / 73; Pulse 86; Resp 18; Pulse Ox 99% on R/A; em 10:35 Body Mass Index 31.78 (86.64 kg, 165.10 cm) ED Course: 10:28 Patient arrived in ED. as 10:29 Eladio Elder DO is Private Physician. as 10:34 Triage completed. ch 10:35 Arm band placed on left wrist. Patient placed in waiting room. ch 10:40 Inserted saline lock: 20 gauge in left antecubital area, using aseptic technique. ch 10:40 Initial lab(s) drawn, by mt, sent to lab. Patient maintains SpO2 saturation greater ch than 95% on room air. 10:59 Warm blanket given. ch 11:00 Basic Metabolic Panel Sent. ch 11:00 CBC with Diff Sent. ch 11:00 LFT's Sent. ch 11:00 Magnesium Sent. ch 11:00 NT PRO-BNP Sent. ch 11:00 PT-INR Sent. ch 11:00 Troponin (emerg Dept Use Only) Sent. ch 11:02 Oliver James LVN is Primary Nurse. em 11:11 Nathan Howe NP is PHCP. pm1 11:11 Felix Oakes MD is Attending Physician. pm1 11:20 Patient has correct armband on for positive identification. building construction foreman on. Pulse em ox on. NIBP on. 11:27 X-ray completed. Portable x-ray completed in exam room. Patient tolerated procedure sw well. 11:27 XRAY Chest (1 view) In Process Unspecified. EDMS 13:08 No provider procedures requiring assistance completed. IV discontinued, intact, em bleeding controlled, No redness/swelling at site. Pressure dressing applied. Administered Medications: 13:01 Drug: Valium 2 mg Route: PO; em 13:12 Follow up: Response: No adverse reaction em Outcome: 12:38 Discharge ordered by MD. pm1 13:12 Discharged to home ambulatory. em 13:12 Condition: good 13:12 Discharge instructions given to patient, Instructed on discharge instructions, follow up and referral plans. medication usage, Demonstrated understanding of instructions, follow-up care, medications, Prescriptions given X 1. 13:13 Patient left the ED. em Signatures: Dispatcher [employer] Mary Pal, RN RN Oliver Simpson, DIRECTOR OF FIELD COORDINATION DIRECTOR OF FIELD COORDINATION Keren Ellis Shannon sw Marinas, Patrick, JACEK BUSINESS UNIT LEADER pm1
[2018-09-07] MEDS ORDERED: DIAZEPAM 2 MG TABLET ONE (13:05)
[2018-09-07 13:51] LABS: Urine Blood TRACE (NEG); Urine Glucose NEGATIVE (NEG); Urine Protein TRACE (NEG)
[2018-09-07 14:09] VITALS: TEMP 98.2
[2018-09-07 14:11] VITALS: O2SAT 99
[2018-09-07 14:12] VITALS: BP 149/73
[2018-09-07 14:29] LABS: Urine Amorphous Sediment 2+ /HPF (NONE SEEN); Urine Bacteria 20-50 /HPF (<20); Urine Culture Reflex Order REFLEXED; Urine RBC <5 /HPF (NONE SEEN)
--- NOTE | 2018-09-07 21:18 | EKG ---
Test Date: 2018-09-07 Test Time: 10:39:43 Line Erector Apprentice: ALICIA MEASUREMENT RESULTS: Intervals: Rate: 59 [place]: 292 QRSD: 74 QT: 424 QTc: 419 [place]: P: 73 [place]: 292 QRS: -18 T: 20 INTERPRETIVE STATEMENTS: Sinus bradycardia with 1st degree AV block Moderate voltage criteria for LVH, may be normal variant Borderline ECG Compared to ECG 10/12/2017 17:49:44 Left ventricular hypertrophy now present Sinus rhythm no longer present Electronically Signed On 09-07-18 21:17:39 CDT by Nathen Prabhakar
== END 2018-09-07 13:13 | disposition home or self-care (01) ==
LOC: ER 10:27
DX: S29.012A Strain of muscle and tendon of back wall of thorax, initial encounter (principal); S16.1XXA Strain of muscle, fascia and tendon at neck level, initial encounter; Y93.G1 Activity, food preparation and clean up; N39.0 Urinary tract infection, site not specified; E11.9 Type 2 diabetes mellitus without complications; E78.5 Hyperlipidemia, unspecified; I10 Essential (primary) hypertension; Z86.73 Personal history of transient ischemic attack (TIA), and cerebral infarction without residual deficits
CPT/HCPCS: 36415; 71045; 80048; 80076; 81003; 81015; 83735; 83880; 84484; 85025; 85610; 87086; 87088; 93005; 99285

== ENCOUNTER 2019-01-01 11:33 | Emergency (ER) | payer OTHER ==
--- NOTE | 2019-01-01 13:49 | RAD REPORT ---
EXAM DESCRIPTION: CT - Head Brain Wo Cont - 01/01/2019 1:28 pm CLINICAL HISTORY: Recurring headaches COMPARISON: June 2013 TECHNIQUE: Axial 5 mm thick images of the head were obtained without IV contrast. All CT scans are performed using dose optimization technique as appropriate and may include automated exposure control or mA/KV adjustment according to patient size. FINDINGS: No intracranial hemorrhage, mass, edema or shift of mid-line structures. No acute cortical based infarction. Atrophy and chronic ischemic changes are present matching the comparison. Ventricl es are in proportion to the amount of volume loss. No abnormal extra-axial fluid collections. Physiol ogic basal ganglia calcifications are present. Mastoid air cells are clear. Maxillary sinuses are not imaged. Mucosal thickening changes are present in the right side sphenoid sinus and in the ethmoid air cells. Frontal sinuses clear. No acute bone finding. Hyperostosis along the inner table frontal bone, most pronounced in midline, h as not clearly changed. Dense are tree oral tree calcifications are present. IMPRESSION: Negative non-contrast CT head examination for acute finding. Above detailed findings are stable from 2013.
[2019-01-01] MEDS ORDERED: METOCLOPRAMIDE 10 MG/2mL INJ ONE (14:27)
[2019-01-01] MEDS ORDERED: DIPHENHYDRAMINE 50 MG/ML VIAL ONE (14:27)
--- NOTE | 2019-01-01 15:08 | EDPHYS ---
Physician Documentation [facility] Name: Geovanna Del Toro Age: 83 yrs Sex: Female : 1935 Arrival Date: 01/01/2019 Time: 11:35 Bed 30 Private MD: ED Physician Kai Castano HPI: 01/01 12:49 This 83 yrs old Black Female presents to ER via Ambulatory with complaints of Headache. jr8 12:49 The patient complains of pain to the forehead. The patient describes the headache as jr8 aching, pounding. Onset: The symptoms/episode began/occurred acutely, 4 day(s) ago. Onset: The symptoms/episode began/occurred gradually. Associated signs and symptoms: Pertinent positives: malaise, Photophobia Pertinent negatives: altered mental status, dizziness, fever, nausea, paresthesias, rash, sinus congestion, vision changes, vision loss, vertigo. Severity of symptoms: At its worst the pain was moderate, in the emergency department the pain is unchanged, a " 10" out of "10". Headache History: The patient has had previous headaches and this one is similar to previous episodes, and this one is more severe than previous episodes. The symptoms are alleviated by nothing. the symptoms are aggravated by nothing. The patient has experienced similar episodes in the past, multiple times, but today's symptoms are worse, more painful. The patient has not recently seen a physician. Historical: - Allergies: 11:40 NKA; hj - PMHx: 11:40 CVA; Diabetes - IDDM; Hyperlipidemia; Hypertension; Kidney stones; hj - PSHx: 11:40 Tubal ligation; hj - Immunization history:: Flu vaccine status is unknown. - Social history:: Smoking status: unknown. - Ebola Screening: : No symptoms or risks identified at this time. ROS: 12:49 Constitutional: Negative for fever, chills, and weight loss, Eyes: Negative for injury, jr8 pain, redness, and discharge, ENT: Negative for injury, pain, and discharge, Neck: Negative for injury, pain, and swelling, Cardiovascular: Negative for chest pain, palpitations, and edema, Respiratory: Negative for shortness of breath, cough, wheezing, and pleuritic chest pain, Abdomen/GI: Negative for abdominal pain, nausea, vomiting, diarrhea, and constipation, MS/Extremity: Negative for injury and deformity, Skin: Negative for injury, rash, and discoloration. 12:49 Neuro: Positive for headache, Negative for dizziness, hearing loss, numbness, speech changes, syncope, tingling, visual changes, weakness, recent trauma. Exam: 12:49 Constitutional: This is a well developed, well nourished patient who is awake, alert, jr8 and in no acute distress. Head/Face: Normocephalic, atraumatic. Eyes: Pupils equal round and reactive to light, extra-ocular motions intact. Lids and lashes normal. Conjunctiva and sclera are non-icteric and not injected. Cornea within normal limits. Periorbital areas with no swelling, redness, or edema. ENT: Nares patent. No nasal discharge, no septal abnormalities noted. Tympanic membranes are normal and external auditory canals are clear. Oropharynx with no redness, swelling, or masses, exudates, or evidence of obstruction, uvula midline. Mucous membranes moist. Neck: Trachea midline, no thyromegaly or masses palpated, and no cervical lymphadenopathy. Supple, full range of motion without nuchal rigidity, or vertebral point tenderness. No Meningismus. Chest/axilla: Normal chest wall appearance and motion. Nontender with no deformity. No lesions are appreciated. Cardiovascular: Regular rate and rhythm with a normal S1 and S2. No gallops, murmurs, or rubs. Normal PMI, no JVD. No pulse deficits. Respiratory: Lungs have equal breath sounds bilaterally, clear to auscultation and percussion. No rales, rhonchi or wheezes noted. No increased work of breathing, no retractions or nasal flaring. Abdomen/GI: Soft, non-tender, with normal bowel sounds. No distension or tympany. No guarding or rebound. No evidence of tenderness throughout. Back: No spinal tenderness. No costovertebral tenderness. Full range of motion. Skin: Warm, dry with normal turgor. Normal color with no rashes, no lesions, and no evidence of cellulitis. MS/ Extremity: Pulses equal, no cyanosis. Neurovascular intact. Full, normal range of motion. 12:49 Neuro: Orientation: is normal, to person, place, time \\T\\ situation. Mentation: is normal, lucid, able to follow commands, Cranial nerves: CN II- XII are normal as tested, extraocular movements are intact, Facial palsy and sensory deficits are absent. Nystagmus is absent. Speech is slowed, soft. Motor: is normal, Sensation: is normal. Vital Signs: 11:40 BP 142 / 62; Pulse 78; Resp 18; Temp 98.6(TE); Pulse Ox 99% on R/A; Weight 89.81 kg; hj Height 5 ft. 5 in. (165.10 cm); Pain 10/10; 15:01 BP 159 / 60; Pulse 79; Resp 16; Pulse Ox 98% on R/A; iw 16:09 BP 145 / 78; Pulse 78; Resp 18; Temp 98; Pulse Ox 100% on R/A; Pain 2/10; mg2 11:40 Body Mass Index 32.95 (89.81 kg, 165.10 cm) hj MDM: 12:29 Patient medically screened. jr8 15:04 Data reviewed: vital signs, nurses notes, radiologic studies, CT scan. Data jr8 interpreted: Pulse oximetry: on room air is 98 %. Interpretation: normal. Counseling: I had a detailed discussion with the patient and/or guardian regarding: the historical points, exam findings, and any diagnostic results supporting the discharge/admit diagnosis, radiology results, the need for outpatient follow up, a family practitioner, to return to the emergency department if symptoms worsen or persist or if there are any questions or concerns that arise at home. Response to treatment: the patient's symptoms have mildly improved after treatment. ED course: Patient hemodynamically stable. No focal deficits. CT negative. Feeling better. History of migraines in past although different today. No other acute findings noted on imaging or exam. Will d/c home to f/u with PCP. 01/01 13:04 Order name: CT Head Brain wo Cont; Complete Time: 14:12 jr8 01/01 13:04 Order name: IV; Complete Time: 13:51 jr8 Administered Medications: 14:10 Drug: Reglan 10 mg Route: IVP; Site: left antecubital; iw 16:08 Follow up: Response: No adverse reaction; Marked relief of symptoms mg2 14:21 Drug: Benadryl 25 mg Route: IVP; Site: left antecubital; iw 16:07 Follow up: Response: No adverse reaction; Marked relief of symptoms mg2 15:47 Drug: fentaNYL (PF) 50 mcg Route: IVP; Site: left antecubital; mg2 16:07 Follow up: Response: No adverse reaction; Marked relief of symptoms mg2 15:48 Drug: Decadron - Dexamethasone 10 mg Route: IVP; Site: left antecubital; mg2 16:07 Follow up: Response: No adverse reaction; Marked relief of symptoms mg2 Disposition: 01/01/19 15:07 Discharged to Home. Impression: Migraine. - Condition is Stable. - Discharge Instructions: Migraine Headache. - Medication Reconciliation Form, Thank You Letter, Antibiotic Education, Prescription Opioid Use form. - Follow up: Private Physician; When: 2 - 3 days; Reason: Recheck today's complaints, Continuance of care, Re-evaluation by your physician. - Problem is new. - Symptoms have improved. Addendum: 01/03/2019 07:44 Co-signature as Attending Physician, Kai Castano MD. g s Signatures: Dispatcher [employer] EDMS Sonia Cevallos RN RN Gabriele Monreal PA PA jr8 George Villalobos RN RN Kai Castano MD MD Obey Mcadams RN RN mg2 Corrections: (The following items were deleted from the chart) 01/01 16:12 15:07 01/01/2019 15:07 Discharged to Home. Impression: Migraine. Condition is Stable. mg2 Forms are Medication Reconciliation Form, Thank You Letter, Antibiotic Education, Prescription Opioid Use. Follow up: Private Physician; When: 2 - 3 days; Reason: Recheck today's complaints, Continuance of care, Re-evaluation by your physician. Problem is new. Symptoms have improved. jr8
--- NOTE | 2019-01-01 15:08 | ER ---
Nurse's Notes [facility] Name: Geovanna Del Toro Age: 83 yrs Sex: Female : 1935 Arrival Date: 01/01/2019 Time: 11:35 Bed 30 Private MD: Diagnosis: Migraine Presentation: 01/01 11:37 Presenting complaint: Patient states: i have a real bad headache off and on since yesterday; i feel like i want to pass out and it takes off my strength; denies N/V;. Transition of care: patient was not received from another setting of care. Onset of symptoms was January 01, 2019. Risk Assessment: Do you want to hurt yourself or someone else? Patient reports no desire to harm self or others. Initial Sepsis Screen: Does the patient meet any 2 criteria? No. Patient's initial sepsis screen is negative. Does the patient have a suspected source of infection? No. Patient's initial sepsis screen is negative. Care prior to arrival: None. 11:37 Method Of Arrival: Ambulatory 11:37 Acuity: ANDERS 3 hj Triage Assessment: 16:00 Headache History: The patient has had previous headaches and this one is similar to mg2 previous episodes. 16:11 General: Appears in no apparent distress. comfortable, Behavior is calm, cooperative. mg2 Pain: Pain currently is 2 out of 10 on a pain scale. Pain began gradually, Also complains of no other associated symptoms. Historical: - Allergies: 11:40 NKA; hj - PMHx: 11:40 CVA; Diabetes - IDDM; Hyperlipidemia; Hypertension; Kidney stones; hj - PSHx: 11:40 Tubal ligation; hj - Immunization history:: Flu vaccine status is unknown. - Social history:: Smoking status: unknown. - Ebola Screening: : No symptoms or risks identified at this time. Screenin:08 Abuse screen: Denies threats or abuse. Denies injuries from another. Nutritional mg2 screening: No deficits noted. Tuberculosis screening: No symptoms or risk factors identified. Fall Risk IV access (20 points). Ambulatory Aid- Crutches/Cane/Walker (15 pts). Assessment: 14:10 General: Appears in no apparent distress. General: Denies fever, chills. Pain: iw Complains of pain in forehead. Neuro: Level of Consciousness is awake, alert, obeys commands, Oriented to person, place, time, situation, Moves all extremities. Full function Reports headache. Cardiovascular: Capillary refill < 3 seconds in bilateral fingers Patient's skin is warm and dry. Respiratory: Respiratory effort is even, unlabored, Respiratory pattern is regular. GI: Patient currently denies nausea, vomiting. : No signs and/or symptoms were reported regarding the genitourinary system. Derm: Skin is intact, is healthy with good turgor. Musculoskeletal: Range of motion: intact in all extremities. 15:01 Reassessment: Patient appears in no apparent distress at this time. Patient and/or iw family updated on plan of care and expected duration. Pain level reassessed. Patient is alert, oriented x 3, equal unlabored respirations, skin warm/dry/pink. pt states headache has mildly improved, still has headache to frontal area. 16:08 Reassessment: Patient states feeling better. Patient states symptoms have improved. mg2 Vital Signs: 11:40 BP 142 / 62; Pulse 78; Resp 18; Temp 98.6(TE); Pulse Ox 99% on R/A; Weight 89.81 kg; hj Height 5 ft. 5 in. (165.10 cm); Pain 10/10; 15:01 BP 159 / 60; Pulse 79; Resp 16; Pulse Ox 98% on R/A; iw 16:09 BP 145 / 78; Pulse 78; Resp 18; Temp 98; Pulse Ox 100% on R/A; Pain 2/10; mg2 11:40 Body Mass Index 32.95 (89.81 kg, 165.10 cm) ED Course: 11:35 Patient arrived in ED. as 11:39 Triage completed. hj 11:40 Arm band placed on left wrist. hj 12:12 Sonia Cevallos, ALBERT is Primary Nurse. iw 12:18 Gabriele Monreal PA is PHCP. jr8 12:18 Kai Castano MD is Attending Physician. jr8 13:29 CT Head Brain wo Cont In Process Unspecified. EDMS 13:51 Bed in low position. Call light in reach. Side rails up X 1. Side rails up X2. Warm jp3 blanket given. Verbal reassurance given. Pulse ox on. NIBP on. 13:51 Inserted saline lock: 22 gauge in left antecubital area, using aseptic technique. jp3 Patient maintains SpO2 saturation greater than 95% on room air. 16:08 No provider procedures requiring assistance completed. IV discontinued, intact, mg2 bleeding controlled, No redness/swelling at site. Pressure dressing applied. Administered Medications: 14:10 Drug: Reglan 10 mg Route: IVP; Site: left antecubital; iw 16:08 Follow up: Response: No adverse reaction; Marked relief of symptoms mg2 14:21 Drug: Benadryl 25 mg Route: IVP; Site: left antecubital; iw 16:07 Follow up: Response: No adverse reaction; Marked relief of symptoms mg2 15:47 Drug: fentaNYL (PF) 50 mcg Route: IVP; Site: left antecubital; mg2 16:07 Follow up: Response: No adverse reaction; Marked relief of symptoms mg2 15:48 Drug: Decadron - Dexamethasone 10 mg Route: IVP; Site: left antecubital; mg2 16:07 Follow up: Response: No adverse reaction; Marked relief of symptoms mg2 Outcome: 15:07 Discharge ordered by . jrSarai 16:09 Discharged to home via wheelchair. mg2 16:09 Condition: stable 16:09 Discharge instructions given to patient, Instructed on discharge instructions, follow up and referral plans. Demonstrated understanding of instructions, follow-up care. 16:12 Patient left the ED. mg2 Signatures: Dispatcher [employer] EDMS Keren Dinh Irene, ALBERT PRICE Gabriele Monreal PA PA jr8 George Villalobos RN RN Obey Mcadams RN RN mg2 Roc Nava jp3 Corrections: (The following items were deleted from the chart) 15:12 15:01 Reassessment: Patient appears in no apparent distress at this time. Patient iw and/or family updated on plan of care and expected duration. Pain level reassessed. Patient is alert, oriented x 3, equal unlabored respirations, skin warm/dry/pink. iw
[2019-01-01] MEDS ORDERED: dexAMETHasone 10 MG/ML VIAL ONE (15:52)
[2019-01-01] MEDS ORDERED: FENTANYL CITR 100 MCG/2 ML ONE (15:53)
[2019-01-01 17:30] VITALS: BP 145/78; TEMP 98; O2SAT 100
== END 2019-01-01 16:12 | disposition home or self-care (01) ==
LOC: ER 11:33
DX: G43.909 Migraine, unspecified, not intractable, without status migrainosus (principal); E11.9 Type 2 diabetes mellitus without complications; E78.5 Hyperlipidemia, unspecified; I10 Essential (primary) hypertension; Z79.4 Long term (current) use of insulin; Z86.73 Personal history of transient ischemic attack (TIA), and cerebral infarction without residual deficits
CPT/HCPCS: 70450; 96375; 96374; 99284; J2765; J3010; J1100

== ENCOUNTER 2019-02-08 11:00 | Inpatient (IN) | payer OTHER ==
[2019-02-08] MEDS ORDERED: NA CHLORIDE 0.9% 1,000 ML ONE (12:22)
[2019-02-08 13:02] LABS: Absolute Lymphocytes (CBC) 2.1 K/uL (0.7-4.9); Basophils % 0.3 % (0-1.3); Hematocrit 34.4 % (36.0-45.0); MPV 9.1 fL (7.6-11.3); Protime INR 0.97; RBC Red Blood Cell Count 3.74 M/uL (3.86-4.86)
[2019-02-08 13:18] LABS: ALT/SGPT 18 U/L (12-78); AST/SGOT 20 U/L (15-37); Albumin 3.9 g/dL (3.4-5.0); Alkaline Phosphatase 67 U/L (45-117); BUN Blood Urea Nitrogen 36 mg/dL (7-18); Bicarbonate 21 mmol/L (21-32); Bilirubin Direct 0.2 mg/dL (0-0.2); Bilirubin Total 0.6 mg/dL (0.2-1.0); Glucose Level 214 mg/dL (74-106); Lipase 35 U/L (73-393); NT PRO-BNP 643 pg/mL (<450); Potassium 3.9 mmol/L (3.5-5.1); Sodium Level 139 mmol/L (136-145); Troponin (Emerg Dept Use Only) < 0.02 ng/mL (0.0-0.045)
--- NOTE | 2019-02-08 13:36 | RAD REPORT ---
EXAM DESCRIPTION: CT - Head Brain Wo Cont - 02/08/2019 1:28 pm CLINICAL HISTORY: Dizziness and headache COMPARISON: December 2018 TECHNIQUE: Computed axial tomography of the head was obtained. IV contrast was not requested. All CT scans are performed using dose optimization technique as appropriate and may include automated exposure control or mA/KV adjustment according to patient size. FINDINGS: An intracranial bleed is not seen . The ventricles are normal in caliber. No extra-axial fluid collection is noted. Mild low-density areas within periventricular, deep and subcortical white matter likely represent isc hemic changes secondary to small vessel disease. Fluid within the sinuses/ mastoids is not seen. Chronic opacification of right maxillary, ethmoid, fr ontal and sphenoid sinuses IMPRESSION: No acute intracranial abnormality is seen. If patient's symptoms persist MRI of the bra in would be recommended. Chronic sinusitis
[2019-02-08] MEDS ORDERED: CIPROFLOXACIN 400mg IV 400 MG/200 ML BAG IV ONE (13:38)
[2019-02-08] MEDS ORDERED: METRONIDAZOLE 500mg IVPB 500 MG/100 ML BAG IV ONE (13:39)
--- NOTE | 2019-02-08 13:44 | EKG ---
Test Date: 2019-02-08 Test Time: 12:44:51 [employer] Attendant: KIANA MEASUREMENT RESULTS: Intervals: Rate: 63 WI: QRSD: 84 QT: 424 QTc: 433 [place]: P: WI: QRS: -10 T: 23 INTERPRETIVE STATEMENTS: Atrial fibrillation Minimal voltage criteria for LVH, may be normal variant Abnormal ECG Compared to ECG 09/07/2018 10:39:43 Sinus bradycardia no longer present First degree AV block no longer present Electronically Signed On 02-08-19 13:43:38 CDT by Nathen Prabhakar
--- NOTE | 2019-02-08 13:56 | RAD REPORT ---
EXAM DESCRIPTION: CT - Abdomen Pelvis Wo Contrast - 02/08/2019 1:31 pm CLINICAL HISTORY: Abdominal pain /diarrhea COMPARISON: December 2017 TECHNIQUE: Computed axial tomography of the abdomen and pelvis was obtained. IV was not requested. O ral contrast was given. Coronal reconstructions performed. All CT scans are performed using dose optimization technique as appropriate and may include automated exposure control or mA/KV adjustment according to patient size. FINDINGS: The evaluation of solid organs and vessels is limited secondary to the lack of contrast a dministration. 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 Previously it measured 29 mil limeters Hepatic granulomas are present. The pancreas is atrophic. 5 centimeter left renal cyst is unchanged. 12 millimeter right renal calculus. Additional tiny calcul us. No hydronephrosis Diverticula stem from the colon. There is mild stranding adjacent to the proximal sigmoid colon. In a ddition the wall of most of the colon appears mildly thickened. Small umbilical hernia contains fat A small hiatal hernia IMPRESSION: Mild sigmoid diverticulitis. The wall of most of the colon appears mildly thickened which may indicate a mild colitis or be second leatha to incomplete distention
--- NOTE | 2019-02-08 14:29 | RAD REPORT ---
EXAM DESCRIPTION: Riky Single View02/08/2019 12:38 pm CLINICAL HISTORY: Cough COMPARISON: August 2018 FINDINGS: The lungs appear clear of acute infiltrate. The heart is normal size IMPRESSION: No acute abnormalities displayed
--- NOTE | 2019-02-08 15:49 | ER ---
Nurse's Notes [facility] Name: Geovanna Del Toro Age: 83 yrs Sex: Female : 1935 Arrival Date: 02/08/2019 Time: 11:03 Bed 28 Private MD: Diagnosis: Abdominal tenderness;Left sided colitis;Diverticular disease of intestine;Diverticulitis of large intestine without perforation or abscess without bleeding;Type 1 diabetes mellitus;Unspecified kidney failure;Acute sinusitis Presentation: 02/08 11:12 Presenting complaint: Patient states: I have a headache and I have been going back and la1 forth to the bathroom with diarrhea all morning. I am also having pressure when I pee. Transition of care: patient was not received from another setting of care. Onset of symptoms was February 08, 2019. Risk Assessment: Do you want to hurt yourself or someone else? Patient reports no desire to harm self or others. Initial Sepsis Screen: Does the patient meet any 2 criteria? No. Patient's initial sepsis screen is negative. Does the patient have a suspected source of infection? No. Patient's initial sepsis screen is negative. Care prior to arrival: None. 11:12 Method Of Arrival: Ambulatory la1 11:12 Acuity: ANDERS 3 la1 Triage Assessment: 18:51 General: Appears in no apparent distress. comfortable, Behavior is calm, cooperative. rv Pain: Denies pain. GI: Reports diarrhea. Historical: - Allergies: 11:13 NKA; la1 - PMHx: 11:13 CVA; Diabetes - IDDM; Hyperlipidemia; Hypertension; Kidney stones; la1 - Immunization history:: Adult Immunizations up to date. - Social history:: Smoking status: Patient/guardian denies using tobacco. - Ebola Screening: : No symptoms or risks identified at this time. Screenin:42 Abuse screen: Denies threats or abuse. Denies injuries from another. Nutritional sv screening: No deficits noted. Tuberculosis screening: No symptoms or risk factors identified. Fall Risk None identified. Assessment: 12:30 General: Appears in no apparent distress. comfortable, obese, well developed, Behavior sv is calm, cooperative. Pain: Denies pain. Neuro: Level of Consciousness is awake, alert, obeys commands, Oriented to person, place, time, situation, Moves all extremities. Full function. Cardiovascular: Patient's skin is warm and dry. Respiratory: Airway is patent Respiratory effort is even, unlabored, Respiratory pattern is regular, symmetrical. GI: Reports diarrhea, Patient currently denies nausea, vomiting. : Reports pressure with urination. Derm: Skin is normal. 13:10 Reassessment: Patient appears in no apparent distress at this time. No changes from sv previously documented assessment. Patient and/or family updated on plan of care and expected duration. Pain level reassessed. Patient is alert, oriented x 3, equal unlabored respirations, skin warm/dry/pink. 14:20 Reassessment: pt assisted to bathroom via wheelchair at this time. sg 15:00 Reassessment: pt assisted to bathroom via wheelchair for BM. sg 15:00 General: Appears in no apparent distress. comfortable, Behavior is calm, cooperative. rv GI: Bowel sounds present X 4 quads. Abd is soft and non tender X 4 quads. 15:00 Pain: Denies pain. Neuro: Level of Consciousness is awake, alert, obeys commands, rv Oriented to person, place, time, situation. Cardiovascular: Patient's skin is warm and dry. Respiratory: Airway is patent. : No signs and/or symptoms were reported regarding the genitourinary system. EENT: No signs and/or symptoms were reported regarding the EENT system. Derm: Skin is intact. Musculoskeletal: No signs and/or symptoms reported regarding the musculoskeletal system. 15:53 Reassessment: Patient appears in no apparent distress at this time. Patient and/or sg family updated on plan of care and expected duration. Pain level reassessed. Patient is alert, oriented x 3, equal unlabored respirations, skin warm/dry/pink. pt assisted to bathroom at this time. Vital Signs: 11:13 BP 139 / 66; Pulse 69; Resp 16; Temp 97.7; Pulse Ox 98% on R/A; Weight 85.73 kg; Height la1 5 ft. 5 in. (165.10 cm); 12:34 BP 158 / 64; Pulse 78 MON; Resp 16; Pulse Ox 100% on R/A; sv 13:30 BP 145 / 66; Pulse 71; Resp 17; Pulse Ox 98% ; rv 14:30 BP 136 / 69; Pulse 66; Resp 16; Pulse Ox 98% on R/A; rv 15:30 BP 147 / 73; Pulse 68; Resp 16; Pulse Ox 98% ; rv 16:30 BP 137 / 64; Pulse 66; Resp 16; Pulse Ox 97% on R/A; rv 17:30 BP 138 / 75; Pulse 69; Resp 17; Pulse Ox 98% ; rv 18:30 BP 129 / 71; Pulse 73; Resp 15; Pulse Ox 98% on R/A; rv 18:30 BP 137 / 65; Pulse 68; Resp 15; Pulse Ox 98% on R/A; rv 11:13 Body Mass Index 31.45 (85.73 kg, 165.10 cm) la1 12:34 Sinus Rhythm sv ED Course: 11:03 Patient arrived in ED. cf2 11:13 Triage completed. la1 11:13 Arm band placed on right wrist. la1 11:36 Britney Keller, ALBERT is Primary Nurse. sv 11:42 Awaiting ED provider evaluation. sv 11:42 Patient has correct armband on for positive identification. Bed in low position. Adult sv w/ patient. Door closed. Head of bed elevated. 11:45 Felix Oakes MD is Attending Physician. anel 12:08 ED physician to see patient. sv 12:30 Initial lab(s) drawn, by me, sent to lab. Inserted saline lock: 20 gauge in left sv antecubital area, using aseptic technique. Blood collected. Flushed left antecubital with 5 ml normal saline. 12:31 XRAY Chest (1 view) In Process Unspecified. EDMS 12:45 Lab(s) recollected, by me, sent to lab. sg 12:53 Lab(s) recollected, by ED staff, sent to lab. sv 13:32 CT Head Brain wo Cont In Process Unspecified. EDMS 13:36 Abdomen In Process Unspecified. EDMS 13:40 Report given to Kathy PRICE. sv 15:46 Christopher Gant DO is Hospitalizing Provider. anel 15:53 Admitting physician to see patient. ian. sg 18:52 No provider procedures requiring assistance completed. Patient admitted, IV remains in rv place. Administered Medications: 12:33 Drug: NS 0.9% 500 ml Route: IV; Rate: bolus; Site: left antecubital; sv 15:00 Follow up: IV Status: Completed infusion; IV Intake: 500ml rv 17:10 Drug: Rocephin 1 grams Route: IV; Rate: per protocol; Site: left antecubital; rv 17:30 Follow up: IV Status: Completed infusion rv 17:12 Drug: morphine 2 mg {Note: RASS 0.} Route: IVP; Site: left antecubital; rv 18:49 Follow up: Response: No adverse reaction; Marked relief of symptoms; Pain is decreased; rv RASS: Alert and Calm (0) 17:14 Drug: Zofran 4 mg Route: IVP; Site: left antecubital; rv 18:50 Follow up: Response: No adverse reaction rv 17:17 Drug: Flagyl 500 mg Volume: 100 ml; Route: IVPB; Rate: 200 ml/hr; Infused Over: 30 rv mins; Site: left antecubital; 18:25 Follow up: IV Status: Completed infusion; IV Intake: 100ml rv 17:18 Drug: NS 0.9% 1000 ml Route: IV; Rate: 125 ml/hr; Site: left antecubital; rv 18:51 Follow up: IV Status: Infusion continued upon admission rv 17:18 Drug: Cipro 400 mg Volume: 200 ml; Route: IVPB; Infused Over: 60 mins; Site: left rv antecubital; 18:25 Follow up: IV Status: Completed infusion; IV Intake: 200ml rv Point of Care Testing: Blood Glucose: 11:16 Blood Glucose: 234 mg/dL; la1 Ranges: Intake: 15:00 IV: 500ml; Total: 500ml. rv 18:25 IV: 100ml; Total: 600ml. rv 18:25 IV: 200ml; Total: 800ml. rv Outcome: 15:47 Decision to Hospitalize by Provider. anel 18:53 Admitted to Med/surg accompanied by nurse, via wheelchair, room 225, with chart, Report rv called to CLIVE ROYAL RN 18:53 Condition: good 18:53 Instructed on the need for admit. 18:54 Patient left the ED. rv Signatures: Dispatcher [employer] EDBritney Anna, RN Jim Medrano RN RN sg Anderson, Corey, MD MD cha Attema, Lee, RN RN la1 Valentin Adames RN RN rv Behzad Arroyo 2
--- NOTE | 2019-02-08 15:49 | EDPHYS ---
Physician Documentation [facility] Name: Geovanna Del Toro Age: 83 yrs Sex: Female : 1935 Arrival Date: 02/08/2019 Time: 11:03 Bed 28 Private MD: ED Physician Felix Oakes HPI: 02/08 12:12 This 83 yrs old Black Female presents to ER via Ambulatory with complaints of Abdominal anel Pain, Headache. 12:12 The patient complains of pain to the top of head, forehead, left frontal area, left anel side of the back of head, left occipital area, left base of the skull, right frontal area, right side of the back of head, right occipital area and right base of the skull. The patient describes the headache as aching. Onset: The symptoms/episode began/occurred this morning, today. Associated signs and symptoms: Pertinent positives: nausea, vomiting. Severity of symptoms: At its worst the pain was mild, moderate, in the emergency department the pain is unchanged. Headache History: The patient has had previous headaches and this one is similar to previous episodes. The patient has experienced similar episodes in the past, a few times. Historical: - Allergies: 11:13 NKA; la1 - PMHx: 11:13 CVA; Diabetes - IDDM; Hyperlipidemia; Hypertension; Kidney stones; la1 - Immunization history:: Adult Immunizations up to date. - Social history:: Smoking status: Patient/guardian denies using tobacco. - Ebola Screening: : No symptoms or risks identified at this time. ROS: 12:13 Constitutional: Negative for fever, chills, and weight loss, Eyes: Negative for injury, anel pain, redness, and discharge, ENT: Negative for injury, pain, and discharge, Neck: Negative for injury, pain, and swelling, Cardiovascular: Negative for chest pain, palpitations, and edema, Respiratory: Negative for shortness of breath, cough, wheezing, and pleuritic chest pain, Back: Negative for injury and pain, : Negative for injury, bleeding, discharge, and swelling, MS/Extremity: Negative for injury and deformity, Skin: Negative for injury, rash, and discoloration, Neuro: Negative for headache, weakness, numbness, tingling, and seizure, Psych: Negative for depression, anxiety, suicide ideation, homicidal ideation, and hallucinations, Allergy/Immunology: Negative for hives, rash, and allergies, Endocrine: Negative for neck swelling, polydipsia, polyuria, polyphagia, and marked weight changes, Hematologic/Lymphatic: Negative for swollen nodes, abnormal bleeding, and unusual bruising. 12:13 Abdomen/GI: Positive for abdominal pain. 12:13 Neuro: Positive for headache. Exam: 12:13 Constitutional: This is a well developed, well nourished patient who is awake, alert, anel and in no acute distress. Head/Face: Normocephalic, atraumatic. Eyes: Pupils equal round and reactive to light, extra-ocular motions intact. Lids and lashes normal. Conjunctiva and sclera are non-icteric and not injected. Cornea within normal limits. Periorbital areas with no swelling, redness, or edema. ENT: Nares patent. No nasal discharge, no septal abnormalities noted. Tympanic membranes are normal and external auditory canals are clear. Oropharynx with no redness, swelling, or masses, exudates, or evidence of obstruction, uvula midline. Mucous membranes moist. Neck: Trachea midline, no thyromegaly or masses palpated, and no cervical lymphadenopathy. Supple, full range of motion without nuchal rigidity, or vertebral point tenderness. No Meningismus. Chest/axilla: Normal chest wall appearance and motion. Nontender with no deformity. No lesions are appreciated. Cardiovascular: Regular rate and rhythm with a normal S1 and S2. No gallops, murmurs, or rubs. Normal PMI, no JVD. No pulse deficits. Respiratory: Lungs have equal breath sounds bilaterally, clear to auscultation and percussion. No rales, rhonchi or wheezes noted. No increased work of breathing, no retractions or nasal flaring. Back: No spinal tenderness. No costovertebral tenderness. Full range of motion. Female : Normal external genitalia. Skin: Warm, dry with normal turgor. Normal color with no rashes, no lesions, and no evidence of cellulitis. MS/ Extremity: Pulses equal, no cyanosis. Neurovascular intact. Full, normal range of motion. Neuro: Awake and alert, GCS 15, oriented to person, place, time, and situation. Cranial nerves II-XII grossly intact. Motor strength 5/5 in all extremities. Sensory grossly intact. Cerebellar exam normal. Normal gait. Psych: Awake, alert, with orientation to person, place and time. Behavior, mood, and affect are within normal limits. 12:13 Abdomen/GI: Inspection: abdomen appears normal, Bowel sounds: normal, Palpation: moderate abdominal tenderness, in all quadrants, Liver: no appreciated palpable abnormalities, Hernia: not appreciated. Vital Signs: 11:13 BP 139 / 66; Pulse 69; Resp 16; Temp 97.7; Pulse Ox 98% on R/A; Weight 85.73 kg; Height la1 5 ft. 5 in. (165.10 cm); 12:34 BP 158 / 64; Pulse 78 MON; Resp 16; Pulse Ox 100% on R/A; sv 13:30 BP 145 / 66; Pulse 71; Resp 17; Pulse Ox 98% ; rv 14:30 BP 136 / 69; Pulse 66; Resp 16; Pulse Ox 98% on R/A; rv 15:30 BP 147 / 73; Pulse 68; Resp 16; Pulse Ox 98% ; rv 16:30 BP 137 / 64; Pulse 66; Resp 16; Pulse Ox 97% on R/A; rv 17:30 BP 138 / 75; Pulse 69; Resp 17; Pulse Ox 98% ; rv 18:30 BP 129 / 71; Pulse 73; Resp 15; Pulse Ox 98% on R/A; rv 18:30 BP 137 / 65; Pulse 68; Resp 15; Pulse Ox 98% on R/A; rv 11:13 Body Mass Index 31.45 (85.73 kg, 165.10 cm) la1 12:34 Sinus Rhythm sv MDM: 11:45 Patient medically screened. [facility] 12:15 Data reviewed: vital signs, nurses notes, lab test result(s), EKG, radiologic studies, [facility] CT scan, plain films. 02/08 12:12 Order name: Basic Metabolic Panel; Complete Time: 15: [facility] 02/08 12:12 Order name: CBC with Diff; Complete Time: 13:15 [facility] 02/08 12:12 Order name: LFT's; Complete Time: 15:21 [facility] 02/08 12:12 Order name: Magnesium; Complete Time: 15: [facility] 02/08 12:12 Order name: NT PRO-BNP; Complete Time: 15:21 [facility] 02/08 12:12 Order name: PT-INR; Complete Time: 13:15 [facility] 02/08 12:12 Order name: Troponin (emerg Dept Use Only); Complete Time: 15:21 [facility] 02/08 12:12 Order name: XRAY Chest (1 view); Complete Time: 15:21 [facility] 02/08 12:12 Order name: Lipase; Complete Time: 15:21 [facility] 02/08 12:12 Order name: Urine Culture [facility] 02/08 12:12 Order name: CT Head Brain wo Cont; Complete Time: 15:21 [facility] 02/08 12:12 Order name: Lactate; Complete Time: 13:05 [facility] 02/08 15:22 Order name: Stool Culture [facility] 02/08 15:22 Order name: Fecal Leukocyte Stain [facility] 02/08 12:12 Order name: EKG; Complete Time: 12:15 [facility] 02/08 12:12 Order name: Cardiac monitoring; Complete Time: 12:33 [facility] 02/08 12:12 Order name: IV Saline Lock; Complete Time: 12:33 [facility] 02/08 12:12 Order name: Labs collected and sent; Complete Time: 12:33 [facility] 02/08 12:12 Order name: O2 Per Protocol; Complete Time: 12:33 [facility] 02/08 13:32 Order name: Abdomen ; Complete Time: 15:21 EDMS 02/08 16:32 Order name: Diet Heart Healthy; Complete Time: 16:34 ss 02/08 12:12 Order name: O2 Sat Monitoring; Complete Time: 12:33 [facility] Administered Medications: 12:33 Drug: NS 0.9% 500 ml Route: IV; Rate: bolus; Site: left antecubital; sv 15:00 Follow up: IV Status: Completed infusion; IV Intake: 500ml rv 17:10 Drug: Rocephin 1 grams Route: IV; Rate: per protocol; Site: left antecubital; rv 17:30 Follow up: IV Status: Completed infusion rv 17:12 Drug: morphine 2 mg {Note: RASS 0.} Route: IVP; Site: left antecubital; rv 18:49 Follow up: Response: No adverse reaction; Marked relief of symptoms; Pain is decreased; rv RASS: Alert and Calm (0) 17:14 Drug: Zofran 4 mg Route: IVP; Site: left antecubital; rv 18:50 Follow up: Response: No adverse reaction rv 17:17 Drug: Flagyl 500 mg Volume: 100 ml; Route: IVPB; Rate: 200 ml/hr; Infused Over: 30 rv mins; Site: left antecubital; 18:25 Follow up: IV Status: Completed infusion; IV Intake: 100ml rv 17:18 Drug: NS 0.9% 1000 ml Route: IV; Rate: 125 ml/hr; Site: left antecubital; rv 18:51 Follow up: IV Status: Infusion continued upon admission rv 17:18 Drug: Cipro 400 mg Volume: 200 ml; Route: IVPB; Infused Over: 60 mins; Site: left rv antecubital; 18:25 Follow up: IV Status: Completed infusion; IV Intake: 200ml rv Point of Care Testing: Blood Glucose: 11:16 Blood Glucose: 234 mg/dL; la1 Ranges: Critical Glucose Levels:Adult <50 mg/dl or >400 mg/dl <40 mg/dl or >180 mg/dl Disposition: 02/08/19 15:47 Hospitalization ordered by Christopher Gant for Inpatient Admission. Preliminary diagnosis are Abdominal tenderness, Left sided colitis, Diverticular disease of intestine, Diverticulitis of large intestine without perforation or abscess without bleeding, Type 1 diabetes mellitus, Unspecified kidney failure, Acute sinusitis. - Bed requested for Telemetry/MedSurg (Inpatient). - Status is Inpatient Admission. rv - Condition is Fair. - Problem is new. - Symptoms have improved. UTI on Admission? No Signatures: Dispatcher [employer] [facility] Britney Keller, RN Felix Portillo MD MD cha Attema, Lee RN RN ga1 Sarah Caba [facility] Valentin Adames RN RN rv Corrections: (The following items were deleted from the chart) 13:32 12:15 Abdomen Pelvis W Con+CT.RAD.BRZ ordered. [facility] 16:55 15:47 Hospitalization Ordered by Christopher Gant DO for Inpatient Admission. Preliminary [facility] diagnosis is Abdominal tenderness; Left sided colitis; Diverticular disease of intestine; Diverticulitis of large intestine without perforation or abscess without bleeding; Type 1 diabetes mellitus; Unspecified kidney failure; Acute sinusitis. Bed requested for Telemetry/MedSurg (Inpatient). Status is Inpatient Admission. Condition is Fair. Problem is new. Symptoms have improved. UTI on Admission? No. anel 18:54 16:55 02/08/2019 15:47 Hospitalization Ordered by Christopher Gant DO for Inpatient rv Admission. Preliminary diagnosis is Abdominal tenderness; Left sided colitis; Diverticular disease of intestine; Diverticulitis of large intestine without perforation or abscess without bleeding; Type 1 diabetes mellitus; Unspecified kidney failure; Acute sinusitis. Bed requested for Telemetry/MedSurg (Inpatient). Status is Inpatient Admission. Condition is Fair. Problem is new. Symptoms have improved. UTI on Admission? No. dh3
--- NOTE | 2019-02-08 16:26 | P.HP ---
Certification for Inpatient Patient admitted to: Inpatient With expected LOS: >2 Midnights Patient will require the following post-hospital care: None Practitioner: I am a practitioner with admitting privileges, knowledge of patient current condition, hospital course, and medical plan of care. Services: Services provided to patient in accordance with Admission requirements found in Title 42 Section 412.3 of the Code of Federal Regulations Patient History Date of Service: 02/08/19 Primary Care Provider: Dr. Elder Reason for admission: Abdominal pain History of Present Illness: 83-year-old female presented to the emergency room with left lower quadrant abdominal pain. Patient is a poor historian. Patient with underlying chronic renal disease, diabetes, hypertension, GERD. Patient presented with left lower quadrant abdominal pain. This started about 2 days ago. Pain has been getting worse. She reported some nausea and vomiting. She reported mild melena at times. She denies any chest pain, shortness of breath. She reports no fevers. Patient came to the ER for further evaluation. In the ER patient evaluated. White count 7.0, hemoglobin 11.4, platelet count of 235. Lipase unremarkable. Lactic acid unremarkable. Troponin unremarkable. Sodium 139, potassium 3.9, BUN of 36, creatinine 1.6 with a GFR 37. Glucose 214. CT head unremarkable except for chronic sinusitis. Chest x- ray unremarkable. CT scan showed mild sigmoid diverticulitis. Colon wall appears thickened may indicate colitis as well. Patient was started on IV fluids and antibiotic therapy. Patient admitted for further evaluation and treatment. When I saw the patient ER, she appeared stable. Pain improved. Daughter at bedside. Allergies No Known Drug Allergies Allergy (Verified 09/04/15 17:13) Unknown No Known Allergies Allergy (Uncoded 09/04/15 16:35) Unknown Home medications list reviewed: Yes Home Medications: Amlodipine/Atorvastatin [Caduet 10 mg-20 mg Tablet] 1 tab PO DAILY 09/04/15 Gabapentin [Neurontin*] 100 mg PO TID 09/04/15 Hydralazine [Apresoline*] 10 mg PO QID 09/04/15 Losartan/Hydrochlorothiazide [Hyzaar 100-25 Tablet] 1 tab PO DAILY 09/04/15 Metoprolol Tartrate [Lopressor] 100 mg PO BID 09/04/15 Potassium Chloride 1 tab PO DAILY 09/04/15 Potassium Citrate/Citric Acid [Pot Citrate-Citric Acid Packet] 1,620 mg PO DAILY 09/04/15 Ranitidine [Zantac*] 150 mg PO BID 09/04/15 Metformin HCl [Glucophage*] 500 mg PO DAILY #30 tab 09/06/15 glyBURIDE [Glyburide] 5 mg PO DAILY #30 tablet 09/06/15 - Past Medical/Surgical History Diabetic: Yes -: Hypertension -: Chronic renal disease stage 3 -: Diabetes mellitus type 2, insulin dependent -: Osteoarthritis -: Hyperlipidemia -: Diabetic neuropathy -: GERD -: Tubal ligation -: bilat cataract removal Psychosocial/ Personal History: Patient lives at home with son. - Family History Family History: Reviewed- Non-Contributory - Family History Mother -: Cancer Notes: doesn't "know what name it was". mother & DTR Father Notes: "passed when I was a little baby" - Social History Smoking Status: Never smoker Alcohol use: No CD- Drugs: No Caffeine use: No Place of Residence: Home Review of Systems General: Weakness, As per HPI Eyes: Unremarkable ENT: Unremarkable Respiratory: Unremarkable Cardiovascular: Unremarkable Gastrointestinal: Nausea, Vomiting, Abdominal Pain, Melena, As per HPI Genitourinary: Unremarkable Musculoskeletal: Unremarkable Integumentary: Unremarkable Neurological: Unremarkable Lymphatics: Unremarkable Physical Examination - Physical Exam General: Alert, In no apparent distress, Oriented x3, Cooperative HEENT: Atraumatic, Normocephalic, Mucous membr. moist/pink Neck: Supple Respiratory: Clear to auscultation bilaterally, Normal air movement Cardiovascular: Normal pulses, Regular rate/rhythm Gastrointestinal: Normal bowel sounds, Soft and benign, Non-distended, No masses , No rebound, No guarding, Tenderness (Pain to the left lower quadrant) Musculoskeletal: No erythema, No tenderness, No warmth Integumentary: No tenderness/swelling, No erythema, No warmth, No cyanosis Neurological: Normal speech, Normal strength at 5/5 x4 extr, Normal tone, Normal affect - Studies Laboratory Data (last 24 hrs) 02/08/19 12:40: PT 11.5, INR 0.97 02/08/19 12:40: WBC 7.0, Hgb 11.4 L, Hct 34.4 L, Plt Count 235 02/08/19 12:40: Sodium 139, Potassium 3.9, BUN 36 H, Creatinine 1.60 H, Glucose 214 H, Magnesium 2.0, Total Bilirubin 0.6, AST 20, ALT 18, Alkaline Phosphatase 67, Lipase 35 L Assessment and Plan - Plan Impression: Nausea, vomiting with left lower quadrant abdominal pain secondary to sigmoid diverticulitis with colitis Hypertension Diabetes mellitus type 2 with hyperglycemia GERD Hyperlipidemia Chronic renal disease stage III Plan: Nausea, vomiting with left lower quadrant abdominal pain secondary to sigmoid diverticulitis with colitis: Patient will be admitted for further evaluation and treatment. Will start IV Cipro and Flagyl. Provide medication for pain and nausea. Will consult GI for further evaluation. Will start IV fluids. Will keep the patient NPO at this time. Once pain improved will start clear liquid diet then advance as tolerated. Patient will require physical therapy once improved. Patient will require colonoscopy in 4-6 weeks after treatment. Will provide DVT prophylaxis-Lovenox. Anticipate improvement over the next 3-5 days with clinical improvement. I will turn the service over to Dr Conley tomorrow. I will go over the plan of care with her. Hypertension: Will restart her home medications including metoprolol 100 mg twice daily, Norvasc 10 mg daily, losartan hydrochlorothiazide daily. Will provide IV medication as needed. May need to adjust medication. Diabetes mellitus type 2 with hyperglycemia: Will provide insulin siding scale and Accu-Cheks. GERD: Will provide PPI. Hyperlipidemia: Will hold medication. Chronic renal disease stage III: Continue with IV fluids. May need to make adjustments to medication. Will monitor electrolytes closely. Replacement protocol in place. Discharge Plan: Home Plan to discharge in: Greater than 2 days - Advance Directives Does patient have a Living Will: No Does patient have a Durable POA for Healthcare: No - Code Status/Comfort Care Code Status Assessed: Yes (Patient is full code) Time Spent Managing Pts Care (In Minutes): 55
[2019-02-08] MEDS ORDERED: ONDANSETRON 4 MG/2 ML VIAL ONE (17:05)
[2019-02-08] MEDS ORDERED: MORPHINE 2 MG/ML SYR ONE (17:05)
[2019-02-08] MEDS ORDERED: CEFTRIAXONE/SWI 1gm 1 GM/10 ML SYR ONE (17:05)
[2019-02-08] MEDS ORDERED: SODIUM CHLORIDE 0.9% 10ML INJ IV PRN (18:52)
[2019-02-08] MEDS ORDERED: ONDANSETRON 4 MG/2 ML VIAL IV PRN (18:52)
[2019-02-08] MEDS ORDERED: METRONIDAZOLE 500mg IVPB 500 MG/100 ML BAG IV SCH (18:52)
[2019-02-08] MEDS ORDERED: ACETAMINOPHEN 650MG/RECT SUPP RECT PRN (18:52)
[2019-02-08] MEDS ORDERED: ACETAMINOPHEN 500 MG TAB PO PRN (18:52)
[2019-02-08] MEDS ORDERED: GABAPENTIN 100 MG CAP PO PRN (18:52)
[2019-02-08] MEDS ORDERED: MORPHINE 2 MG/ML SYR IV PRN (18:52)
[2019-02-08] MEDS ORDERED: HYDRALAZINE HCL 20 MG/ML VIAL IV PRN (18:52)
[2019-02-08 19:04] VITALS: BMI 31.6
[2019-02-08] MEDS: NA CHLORIDE 0.9% 1,000 ML IV SCH (19:40)
[2019-02-08] MEDS: INSULIN -REGULAR HUMAN 50 UNIT/0.5 ML ML SQ SCH ×2 (19:45→20:27)
[2019-02-08] MEDS ORDERED: POTASSIUM CL SA 10 MEQ TAB PO ONE (21:00)
[2019-02-08 21:18] LABS: Urine Appearance CLEAR; Urine Bilirubin NEGATIVE (NEG); Urine Blood NEGATIVE (NEG); Urine Color YELLOW; Urine Glucose 1+ (NEG); Urine Protein NEGATIVE (NEG); Urine Specific Gravity 1.015 (1.005-1.030); Urine Urobilinogen 0.2 mg/dL (0.2-1.0)
[2019-02-08 21:24] LABS: Urine Microscopic Reflex ORDER UMIC
[2019-02-08 21:30] LABS: Urine Culture Reflex Order NOT NEEDED
[2019-02-08 21:31] LABS: Urine Bacteria <20 /HPF (<20); Urine RBC NONE SEEN /HPF (NONE SEEN)
[2019-02-08] MEDS: METOPROLOL TAR 50 MG TAB PO SCH (22:04)
[2019-02-09] MEDS: METRONIDAZOLE 500mg IVPB 500 MG/100 ML BAG IV SCH ×3 (00:17→16:35)
[2019-02-09] MEDS: Ciprofloxacin 200mg IV 200 MG/100 ML IV.SOLN. IV SCH ×2 (05:25→17:22)
[2019-02-09 06:21] LABS: Potassium 4.1 mmol/L (3.5-5.1)
[2019-02-09 06:23] LABS: Absolute Lymphocytes (CBC) 1.9 K/uL (0.7-4.9); Basophils % 0.8 % (0-1.3); Hematocrit 29.5 % (36.0-45.0); MPV 8.8 fL (7.6-11.3); RBC Red Blood Cell Count 3.19 M/uL (3.86-4.86)
[2019-02-09] MEDS: NA CHLORIDE 0.9% 1,000 ML IV SCH ×2 (06:46→21:32)
[2019-02-09] MEDS: INSULIN -REGULAR HUMAN 50 UNIT/0.5 ML ML SQ SCH ×4 (07:30→22:19)
[2019-02-09] MEDS: ENOXAPARIN 30 MG/0.3 ML SQ SCH (08:52)
[2019-02-09] MEDS: LOSARTAN/HCTZ 50-12.5 PO SCH (08:53)
[2019-02-09] MEDS: PANTOPRAZOLE 40 MG INJ IVP SCH (08:53)
[2019-02-09] MEDS: AMLODIPINE 10 MG TAB PO SCH (08:54)
[2019-02-09] MEDS: METOPROLOL TAR 50 MG TAB PO SCH ×2 (08:54→22:20)
--- NOTE | 2019-02-09 15:36 | P.PN ---
Subjective Date of Service: 02/09/19 Primary Care Provider: Dr. Elder Chief Complaint: Abdominal pain Subjective: Improving Patient seen and examined at bedside. No family at bedside. Chart reviewed and case discussed with nursing staff. Reports abdominal pain is resolved. Doing well this morning. No concerns or complaints this morning. Acute events noted overnight Review of Systems 10-point ROS is otherwise unremarkable Physical Examination - Vital Signs Temperature: 96.9 F Blood Pressure: 123/58 Pulse: 56 Respirations: 16 Pulse Ox (%): 98 - Physical Exam General: Alert, In no apparent distress, Oriented x3 HEENT: Atraumatic, PERRLA, EOMI Neck: Supple, JVD not distended Respiratory: Clear to auscultation bilaterally, Normal air movement Cardiovascular: Regular rate/rhythm, Normal S1 S2 Gastrointestinal: Normal bowel sounds, No tenderness Musculoskeletal: No tenderness Integumentary: No rashes Neurological: Normal speech, Normal tone, Normal affect Lymphatics: No axilla or inguinal lymphadenopathy Assessment And Plan - Current Problems (Diagnosis) (1) Diverticulitis Current Visit: Yes Status: Acute Plan: -continue IV ciprofloxacin and Flagyl -pain/nausea control -start clear liquid diet, advance as tolerated -she will require colonoscopy in 4-6 weeks as an outpatient. (2) Hypertension Current Visit: No Status: Chronic Plan: Stable, continue home medications: Norvasc 10 mg daily, losartan hydrochlorothiazide daily -decrease metoprolol to 50 mg b.i.d. due to bradycardia. Qualifiers: Hypertension type: essential hypertension Qualified Code(s): I10 - Essential (primary) hypertension (3) Diabetes mellitus Current Visit: Yes Status: Acute Plan: Continue Accu-Cheks and sliding scale insulin. 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 Diabetes mellitus complication status: with hyperglycemia Qualified Code(s): E11.65 - Type 2 diabetes mellitus with hyperglycemia (4) Gastroesophageal reflux disease Current Visit: Yes Status: Acute Plan: Continue PPI Qualifiers: Esophagitis presence: esophagitis presence not specified Qualified Code(s) : K21.9 - Gastro-esophageal reflux disease without esophagitis (5) Chronic renal disease Current Visit: No Status: Chronic Qualifiers: Chronic kidney disease stage: stage 3 (moderate) Qualified Code(s): N18.3 - Chronic kidney disease, stage 3 (moderate) - Plan DVT prophylaxis: Lovenox GI prophylaxis: Protonix Diet: Clear liquid Disposition: Pending symptomatic improvement. Will get physical therapy evaluation Discharge Plan: Home Plan to discharge in: 48 Hours
[2019-02-09 21:25] VITALS: O2SAT 99
[2019-02-10] MEDS: METRONIDAZOLE 500mg IVPB 500 MG/100 ML BAG IV SCH ×2 (00:46→08:18)
[2019-02-10] MEDS: Ciprofloxacin 200mg IV 200 MG/100 ML IV.SOLN. IV SCH (05:03)
[2019-02-10] MEDS: NA CHLORIDE 0.9% 1,000 ML IV SCH ×2 (06:21→08:21)
[2019-02-10 06:28] LABS: Absolute Lymphocytes (CBC) 2.6 K/uL (0.7-4.9); Basophils % 0.7 % (0-1.3); Hematocrit 30.4 % (36.0-45.0); Lymphocytes % 51.9 % (15.3-44.8); MPV 9.3 fL (7.6-11.3); RBC Red Blood Cell Count 3.26 M/uL (3.86-4.86)
[2019-02-10 06:41] LABS: Magnesium 1.9 mg/dL (1.8-2.4)
[2019-02-10] MEDS: INSULIN -REGULAR HUMAN 50 UNIT/0.5 ML ML SQ SCH ×2 (08:15→11:28)
[2019-02-10] MEDS: LOSARTAN/HCTZ 50-12.5 PO SCH (08:16)
[2019-02-10] MEDS: ENOXAPARIN 30 MG/0.3 ML SQ SCH (08:16)
[2019-02-10] MEDS: PANTOPRAZOLE 40 MG INJ IVP SCH (08:17)
[2019-02-10] MEDS: METOPROLOL TAR 50 MG TAB PO SCH (08:17)
[2019-02-10] MEDS: AMLODIPINE 10 MG TAB PO SCH (08:17)
[2019-02-10 08:22] VITALS: BP 164/71; TEMP 97.5
--- NOTE | 2019-02-10 12:16 | P.PN ---
Subjective Date of Service: 02/10/19 Primary Care Provider: Dr. Elder Chief Complaint: LLQ/RLQ abdominal pain Subjective: Improving (No significant abdominal pain now. Tolerating CLs but "going straight through me" with diarrhea after having CLs.) Review of Systems 10-point ROS is otherwise unremarkable General: Weakness (Improved.) Gastrointestinal: Abdominal Pain (Improved.) Physical Examination - Vital Signs Temperature: 97.5 F Blood Pressure: 164/71 Pulse: 61 Respirations: 14 Pulse Ox (%): 98 - Physical Exam General: Alert, In no apparent distress, Oriented x3, Cooperative HEENT: Atraumatic, Normocephalic, PERRLA, EOMI Neck: Supple Respiratory: Normal air movement Cardiovascular: Normal pulses Gastrointestinal: Soft and benign, No ascites, No rebound, No guarding Neurological: Normal speech, Normal strength at 5/5 x4 extr Assessment And Plan - Current Problems (Diagnosis) (1) Sigmoid diverticulitis Current Visit: Yes Status: Acute (2) LLQ abdominal pain Current Visit: Yes Status: Acute (3) RLQ abdominal pain Current Visit: Yes Status: Acute (4) Diabetes mellitus Current Visit: Yes Status: Acute Qualifiers: Diabetes mellitus type: type 2 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: without custodial use Diabetes mellitus complication status: with hyperglycemia Qualified Code(s): E11.65 - Type 2 diabetes mellitus with hyperglycemia (5) Chronic renal disease Current Visit: No Status: Chronic Qualifiers: Chronic kidney disease stage: stage 3 (moderate) Qualified Code(s): N18.3 - Chronic kidney disease, stage 3 (moderate) (6) Hypertension Current Visit: No Status: Chronic Qualifiers: Hypertension type: essential hypertension Qualified Code(s): I10 - Essential (primary) hypertension - Plan REC: 1) continue IVFs and IV antibiotics 2) continue prn pain medications & anti-emetics 3) colonoscopy in 4-6 weeks
--- NOTE | 2019-02-10 13:21 | P.DS ---
Admission Date: 02/08/19 Discharge Date: 02/10/19 Primary Care Provider: Dr. Elder Disposition: ROUTINE DISCHARGE Discharge Condition: GOOD Reason for Admission: LLQ/RLQ abdominal pain Consultations: Gastroenterology - Problems (1) Diverticulitis Current Visit: Yes Status: Acute (2) Hypertension Current Visit: No Status: Chronic Qualifiers: Hypertension type: essential hypertension Qualified Code(s): I10 - Essential (primary) hypertension (3) Diabetes mellitus Current Visit: Yes Status: Acute Qualifiers: Diabetes mellitus type: type 2 Diabetes mellitus fci insulin use: without fci use Diabetes mellitus complication status: with hyperglycemia Qualified Code(s): E11.65 - Type 2 diabetes mellitus with hyperglycemia (4) Gastroesophageal reflux disease Current Visit: Yes Status: Acute Qualifiers: Esophagitis presence: esophagitis presence not specified Qualified Code(s) : K21.9 - Gastro-esophageal reflux disease without esophagitis (5) Chronic renal disease Current Visit: No Status: Chronic Qualifiers: Chronic kidney disease stage: stage 3 (moderate) Qualified Code(s): N18.3 - Chronic kidney disease, stage 3 (moderate) Brief History of Present Illness: 83-year-old female presented to the emergency room with left lower quadrant abdominal pain. Patient is a poor historian. Patient with underlying chronic renal disease, diabetes, hypertension, GERD. Patient presented with left lower quadrant abdominal pain. This started about 2 days ago. Pain has been getting worse. She reported some nausea and vomiting. She reported mild melena at times. She denies any chest pain, shortness of breath. She reports no fevers. Patient came to the ER for further evaluation. In the ER patient evaluated. White count 7.0, hemoglobin 11.4, platelet count of 235. Lipase unremarkable. Lactic acid unremarkable. Troponin unremarkable. Sodium 139, potassium 3.9, BUN of 36, creatinine 1.6 with a GFR 37. Glucose 214. CT head unremarkable except for chronic sinusitis. Chest x- ray unremarkable. CT scan showed mild sigmoid diverticulitis. Colon wall appears thickened may indicate colitis as well. Patient was started on IV fluids and antibiotic therapy. Patient admitted for further evaluation and treatment. When I saw the patient ER, she appeared stable. Pain improved. Daughter at bedside. Hospital Course: Patient was admitted for diverticulitis. She was started on IV ciprofloxacin and Flagyl. Her pain and nausea was controlled. Her symptoms improved, she was started on clear liquid diet and advance as tolerated. Prior to discharge, she was tolerating full liquid/soft diet, her abdominal pain had resolved. She had 1 bowel movement on the day of discharge. Her labs were stable and she was hemodynamically stable. Case was discussed with GI. She was cleared for discharge with instructions to follow up as an outpatient. She will require colonoscopy in 4-6 weeks as an outpatient. She did have some bradycardia during this stay, her metoprolol was decreased to 50 mg twice a day. She will be discharged on this new dosage. She otherwise remained stable throughout the stay. Her diagnoses/treatment plan was explained to her, all questions were answered and she verbalized understanding. She was then discharged home in a safe and stable manner. Vital Signs/Physical Exam: Temp Pulse Resp BP Pulse Ox 97.5 F 61 14 164/71 H 98 02/10/19 12:16 02/10/19 12:16 02/10/19 12:16 02/10/19 12:16 02/10/19 12:16 General: Alert, In no apparent distress, Oriented x3 HEENT: Atraumatic, PERRLA, EOMI Neck: Supple, JVD not distended Respiratory: Clear to auscultation bilaterally, Normal air movement Cardiovascular: Regular rate/rhythm, Normal S1 S2 Gastrointestinal: Normal bowel sounds, No tenderness Musculoskeletal: No tenderness Integumentary: No rashes Neurological: Normal speech, Normal tone, Normal affect Lymphatics: No axilla or inguinal lymphadenopathy Laboratory Data at Discharge: WBC 5.0 K/uL (4.3-10.9) 02/10/19 05:42 Hgb 10.3 g/dL (12.0-15.0) L 02/10/19 05:42 Hct 30.4 % (36.0-45.0) L 02/10/19 05:42 Plt Count 213 K/uL (152-406) 02/10/19 05:42 PT 11.5 SECONDS (9.5-12.5) 02/08/19 12:40 INR 0.97 02/08/19 12:40 Sodium 143 mmol/L (136-145) 02/10/19 05:42 Potassium 4.0 mmol/L (3.5-5.1) 02/10/19 05:42 BUN 16 mg/dL (7-18) 02/10/19 05:42 Creatinine 1.25 mg/dL (0.55-1.3) 02/10/19 05:42 Glucose 221 mg/dL (74-106) H 02/10/19 05:42 Magnesium 1.9 mg/dL (1.8-2.4) 02/10/19 05:42 Total Bilirubin 0.6 mg/dL (0.2-1.0) 02/08/19 12:40 AST 20 U/L (15-37) 02/08/19 12:40 ALT 18 U/L (12-78) 02/08/19 12:40 Alkaline Phosphatase 67 U/L (45-117) 02/08/19 12:40 Lipase 35 U/L (73-393) L 02/08/19 12:40 Home Medications: Gabapentin [Neurontin*] 100 mg PO TID 09/04/15 Hydralazine [Apresoline*] 10 mg PO QID 09/04/15 Losartan/Hydrochlorothiazide [Hyzaar 100-25 Tablet] 1 tab PO DAILY 09/04/15 Ranitidine [Zantac*] 150 mg PO BID 09/04/15 Amlodipine [Norvasc*] 10 mg PO DAILY 02/08/19 Atorvastatin Calcium 20 mg PO DAILY 02/08/19 Insulin NPH Hum/Reg Insulin Hm [Humulin 70/30 Kwikpen] 40 units SQ BID 02/08/19 Insulin NPH Hum/Reg Insulin Hm [Humulin 70/30 Kwikpen] 70 units SQ BID 02/08/19 Ciprofloxacin HCl [Cipro 500 MG Tablet] 500 mg PO BID #14 tab 02/10/19 Metoprolol Tartrate [Lopressor*] 50 mg PO BID #60 tab 02/10/19 metroNIDAZOLE [Flagyl] 500 mg PO Q8H #21 tablet 02/10/19 New Medications: Ciprofloxacin HCl [Cipro 500 MG Tablet] 500 mg PO BID #14 tab Metoprolol Tartrate [Lopressor*] 50 mg PO BID #60 tab metroNIDAZOLE [Flagyl] 500 mg PO Q8H #21 tablet Patient Discharge Instructions: Please follow up with the primary care physician in 2-3 days. Please follow up with GI specialist in 2 weeks. Information provided to you. He will need a colonoscopy in 4-6 weeks once you have been discharged, you will need to follow up with the GI specialist for this. Please return to the emergency room for worsening symptoms. Diet: GI Soft Activity: Ad kerwin Time spent managing pt's care (in minutes): 55
== END 2019-02-10 16:04 | disposition home or self-care (01) | DRG 392 ==
LOC: ER 11:00 → ERHOLD 16:26 → 2ND 18:31
PROVIDERS: ADMIT Family Medicine; ATTEND Family Medicine
DX: K57.32 Diverticulitis of large intestine without perforation or abscess without bleeding (principal); I12.9 Hypertensive chronic kidney disease with stage 1 through stage 4 chronic kidney disease, or unspecified chronic kidney disease; E11.22 Type 2 diabetes mellitus with diabetic chronic kidney disease; E11.65 Type 2 diabetes mellitus with hyperglycemia; N18.3 Chronic kidney disease, stage 3 (moderate); K21.9 Gastro-esophageal reflux disease without esophagitis; R00.1 Bradycardia, unspecified; E78.5 Hyperlipidemia, unspecified
CPT/HCPCS: 36415; 70450; 71045; 74176; 80048; 80076; 81003; 81015; 82962; 83036; 83605; 83690; 83735; 83880; 84484; 85025; 85610; 87040; 87086; 87088; 93005; 96361; 96365; 96367; 96368; 96375; 99285; C9113; J0696; J0744; J1650; J2270; J2405; J7030

== ENCOUNTER 2020-02-15 09:55 | Emergency (ER) | payer OTHER ==
[2020-02-15] MEDS ORDERED: CYCLOBENZAPRINE 10 MG TAB ONE (10:23)
[2020-02-15] MEDS ORDERED: KETOROLAC 30 MG/ML INJ ONE (10:23)
--- NOTE | 2020-02-15 11:06 | RAD REPORT ---
EXAM DESCRIPTION: CT - C Spine Wo Con - 02/15/2020 10:42 am CLINICAL HISTORY: Right-sided neck and shoulder pain x6 days, no precipitating injury recalled COMPARISON: CT neck carotid examination May 2010 TECHNIQUE: Axial 2 mm thick images of the cervical spine were obtained with sagittal and coronal rec onstruction images generated and reviewed. All CT scans are performed using dose optimization technique as appropriate and may include automated exposure control or mA/KV adjustment according to patient size. FINDINGS: Patient has complete opacification of the right maxillary sinus with soft tissue extension into the right nasal passage. There is mineralized or inspissated mucus in the right maxillary sinus . This could be chronic mucosal thickening, polyposis or a combination. Left maxillary sinus is clear . There is partial opacification of the ethmoid air cells and right side sphenoid sinus. Right-sided sphenoid sinus changes are chronic. Mastoid air cells are clear. Dense calcifications of each carotid bulb noted. There are dense calcifications in the cavernous port ions of each internal carotid artery. Cervical body height and alignment are normal. Mild C4-5, moderate C5-6 and advanced C6-7 disc space narrowing. Posterior endplate spurs are present at all 3 of these levels and there is calcifications along the posterior longitudinal ligament. Prominent anterior endplate spurring at these 3 levels as well. No fracture or acute bone process identified. No pathologic findings. Patient has dense calcificatio ns of the transverse ligament. Mild degenerative change at the dens anterior C1 arch level. C4-5 posterior endplate spurring and calcification causes central spinal stenosis to 7 mm. Cord detai l is limited but is almost certainly flattened at this level. Mild bony foraminal encroachment is pre sent. C5-6 endplate spurring and uncovertebral joint hypertrophy cause mild foraminal stenosis and a centra l spinal stenosis to 7-8 mm. C6-7 endplate spurring and disc bulge causes central spinal stenosis to 7- 8 mm along with mild bilat eral bony foraminal stenosis. No paraspinal soft tissue mass or cervical lymphadenopathy. Central canal detail is inherently limited on CT imaging. IMPRESSION: Patient has advanced cervical spine degenerative change most pronounced in the C4-C7 ran ge were there is multilevel central spinal stenosis and foraminal stenosis. No fracture or acute bone finding identifiable. Dense carotid calcifications. Chronic right maxillary and right sphenoid sinusitis. Right maxillary findings extend into the right nasal passage. A component of polyposis cannot be excluded.
--- NOTE | 2020-02-15 11:51 | ER ---
Nurse's Notes [facility] Name: Geovanna Del Toro Age: 84 yrs Sex: Female : 1935 Arrival Date: 02/15/2020 Time: 09:57 Bed 14 Private MD: Diagnosis: Sprain of joints and ligaments of unspecified parts of neck Presentation: 02/14 10:07 Chief complaint: Patient states: R sided neck and shoulder pain that began 6 days ago. ss Denies injury. Is worse with ROM of neck. Coronavirus screen: Client denies travel out of the [place] in the last 14 days. Ebola Screen: Patient denies exposure to infectious person. Patient denies travel to an Ebola-affected area in the 21 days before illness onset. Initial Sepsis Screen: Does the patient meet any 2 criteria? No. Patient's initial sepsis screen is negative. Does the patient have a suspected source of infection? No. Patient's initial sepsis screen is negative. Risk Assessment: Do you want to hurt yourself or someone else? Patient reports no desire to harm self or others. Onset of symptoms was February 09, 2020. 10:07 Method Of Arrival: Ambulatory ss 10:07 Acuity: ANDERS 4 ss Historical: - Allergies: 10:12 NKA; ss - PMHx: 10:12 CVA; Diabetes - IDDM; Hyperlipidemia; Hypertension; Kidney stones; ss - Immunization history:: Adult Immunizations up to date. - Social history:: Smoking status: Patient denies any tobacco usage or history of. Screenin:04 Abuse screen: Denies threats or abuse. Denies injuries from another. Nutritional iw screening: No deficits noted. Tuberculosis screening: No symptoms or risk factors identified. Fall Risk None identified. Assessment: 11:03 General: Appears in no apparent distress. Behavior is calm, cooperative. Pain: iw Complains of pain in right arm and neck. Neuro: Level of Consciousness is awake, alert, obeys commands, Oriented to person, place, time, situation, Moves all extremities. Full function. Cardiovascular: Patient's skin is warm and dry. Respiratory: Respiratory effort is even, unlabored, Respiratory pattern is regular. Derm: Skin is intact, is healthy with good turgor. Musculoskeletal: Range of motion: intact in all extremities. Vital Signs: 10:07 BP 180 / 67; Pulse 86; Resp 16; Temp 98.4(TE); Pulse Ox 100% on R/A; Height 5 ft. 5 in. ss (165.10 cm); Pain 9/10; ED Course: 09:57 Patient arrived in ED. ds1 10:02 Lashawn Good MD is Attending Physician. ma2 10:11 Sonia Cevallos, RN is Primary Nurse. iw 10:12 Triage completed. ss 10:12 Arm band placed on right wrist. ss 10:42 CT C Spine In Process Unspecified. EDMS 12:17 Patient has correct armband on for positive identification. iw 12:17 No provider procedures requiring assistance completed. Patient did not have IV access iw during this emergency room visit. Administered Medications: 10:22 Drug: TORadol 60 mg Route: IM; Site: left vastus lateralis; iw 12:17 Follow up: Response: No adverse reaction; Pain is decreased iw 10:23 Drug: Flexeril 10 mg Route: PO; iw 12:18 Follow up: Response: No adverse reaction; Pain is decreased iw Outcome: 11:51 Discharge ordered by . ma2 12:17 Discharged to home ambulatory. iw 12:17 Condition: good 12:17 Discharge instructions given to patient, Instructed on discharge instructions, follow up and referral plans. medication usage, Demonstrated understanding of instructions, follow-up care, medications, Prescriptions given X 2. 12:18 Patient left the ED. iw Signatures: Dispatcher [employer] [facility] Delfina Jin ds1 Sonia Cevallos RN RN Kathy Rey RN RN Lashawn Good MD MD ma2
--- NOTE | 2020-02-15 11:51 | EDPHYS ---
Physician Documentation [facility] Name: Geovanna Del Toro Age: 84 yrs Sex: Female : 1935 Arrival Date: 02/15/2020 Time: 09:57 Bed 14 Private MD: ED Physician Lashawn Good HPI: 02/14 11:02 This 84 yrs old Black Female presents to ER via Ambulatory with complaints of Neck and ma2 Shoulder Pain. 11:02 right sided neck pain that is constant . Onset: The symptoms/episode began/occurred ma2 gradually, 1 day(s) ago. Severity of symptoms: At their worst the symptoms were very mild in the emergency department the symptoms are unchanged. Historical: - Allergies: 10:12 NKA; ss - PMHx: 10:12 CVA; Diabetes - IDDM; Hyperlipidemia; Hypertension; Kidney stones; ss - Immunization history:: Adult Immunizations up to date. - Social history:: Smoking status: Patient denies any tobacco usage or history of. ROS: 11:02 Constitutional: Negative for fever, chills, and weight loss, Cardiovascular: Negative ma2 for chest pain, palpitations, and edema, Respiratory: Negative for shortness of breath, cough, wheezing, and pleuritic chest pain, Abdomen/GI: Negative for abdominal pain, nausea, diarrhea, and constipation. 11:02 All other systems are negative. Exam: 11:02 Constitutional: This is a well developed, well nourished patient who is awake, alert, ma2 and in no acute distress. Head/Face: Normocephalic, atraumatic. ENT: Nares patent. No nasal discharge, no septal abnormalities noted. Tympanic membranes are normal and external auditory canals are clear. Oropharynx with no redness, swelling, or masses, exudates, or evidence of obstruction, uvula midline. Mucous membranes moist. Neck: Trachea midline, no thyromegaly or masses palpated, and no cervical lymphadenopathy. Supple, full range of motion without nuchal rigidity, or vertebral point tenderness. No Meningismus. Chest/axilla: Normal chest wall appearance and motion. Nontender with no deformity. No lesions are appreciated. Cardiovascular: Regular rate and rhythm with a normal S1 and S2. No gallops, murmurs, or rubs. Normal PMI, no JVD. No pulse deficits. Respiratory: Lungs have equal breath sounds bilaterally, clear to auscultation and percussion. No rales, rhonchi or wheezes noted. No increased work of breathing, no retractions or nasal flaring. Abdomen/GI: Soft, non-tender, with normal bowel sounds. No distension or tympany. No guarding or rebound. No evidence of tenderness throughout. 11:02 Neck: ttp over right SCM muscle, pulses intact skin wnl, no bruit . Vital Signs: 10:07 BP 180 / 67; Pulse 86; Resp 16; Temp 98.4(TE); Pulse Ox 100% on R/A; Height 5 ft. 5 in. ss (165.10 cm); Pain 9; MDM: 10:02 Patient medically screened. ct2 11:02 Data reviewed: vital signs, nurses notes. Counseling: I had a detailed discussion with ma2 the patient and/or guardian regarding: the historical points, exam findings, and any diagnostic results supporting the discharge/admit diagnosis, the presence of at least one elevated blood pressure reading (>120/80) during this emergency department visit, the need for outpatient follow up. Response to treatment: the patient's symptoms have markedly improved after treatment. 11:48 Differential Diagnosis neck pain . ct2 02/14 10:07 Order name: CT C Spine; Complete Time: 11:43 [facility] Administered Medications: 10:22 Drug: TORadol 60 mg Route: IM; Site: left vastus lateralis; iw 12:17 Follow up: Response: No adverse reaction; Pain is decreased iw 10:23 Drug: Flexeril 10 mg Route: PO; iw 12:18 Follow up: Response: No adverse reaction; Pain is decreased iw Disposition: 02/15/20 11:51 Discharged to Home. Impression: Sprain of joints and ligaments of unspecified parts of neck. - Condition is Stable. - Discharge Instructions: Muscle Strain, [id number]. - Prescriptions for Cyclobenzaprine 10 mg Oral Tablet - take 1 tablet by ORAL route every 8 hours As needed; 30 tablet. Diclofenac Sodium 75 mg Oral Tablet Sustained Release - take 1 tablet by ORAL route 2 times per day; 30 tablet. - Medication Reconciliation Form, Thank You Letter, Antibiotic Education, Prescription Opioid Use form. - Follow up: Private Physician; When: Tomorrow; Reason: Continuance of care. Signatures: Dispatcher [employer] Sonia Keenan RN RN iw Kathy Rey RN RN ss Lashawn Good MD MD ma2 Corrections: (The following items were deleted from the chart) 12:18 11:51 02/15/2020 11:51 Discharged to Home. Impression: Sprain of joints and ligaments iw of unspecified parts of neck. Condition is Stable. Discharge Instructions: Muscle Strain, [id number]. Prescriptions for Cyclobenzaprine 10 mg Oral Tablet - take 1 tablet by ORAL route every 8 hours As needed; 30 tablet, Diclofenac Sodium 75 mg Oral Tablet Sustained Release - take 1 tablet by ORAL route 2 times per day; 30 tablet. and Forms are Medication Reconciliation Form, Thank You Letter, Antibiotic Education, Prescription Opioid Use. Follow up: Private Physician; When: Tomorrow; Reason: Continuance of care. ma2
== END 2020-02-15 12:18 | disposition home or self-care (01) ==
LOC: ER 09:55
DX: S13.9XXA Sprain of joints and ligaments of unspecified parts of neck, initial encounter (principal); I10 Essential (primary) hypertension; Z86.73 Personal history of transient ischemic attack (TIA), and cerebral infarction without residual deficits
CPT/HCPCS: 72125; 96372; 99283

== ENCOUNTER 2020-02-25 13:29 | Emergency (ER) | payer OTHER ==
[2020-02-25] MEDS ORDERED: NA CHLORIDE 0.9% 250 ML ONE (14:16)
[2020-02-25] MEDS ORDERED: KETOROLAC 30 MG/ML INJ ONE (14:16)
[2020-02-25 14:28] LABS: Urine Blood 1+ (NEG); Urine Glucose NEGATIVE (NEG); Urine Protein 2+ (NEG); Urine pH 5.5 (5.0-7.0)
[2020-02-25 14:28] LABS: Absolute Lymphocytes (CBC) 2.9 K/uL (0.7-4.9); Basophils % 0.8 % (0-1.3); Hematocrit 34.7 % (36.0-45.0); Lymphocytes % 50.2 % (15.3-44.8); MPV 8.4 fL (7.6-11.3); RBC Red Blood Cell Count 3.75 M/uL (3.86-4.86)
[2020-02-25 14:43] LABS: Albumin 3.8 g/dL (3.4-5.0); Bilirubin Direct 0.2 mg/dL (0-0.2); Bilirubin Total 0.4 mg/dL (0.2-1.0); Potassium 3.9 mmol/L (3.5-5.1)
[2020-02-25 14:57] LABS: Urine Bacteria 20-50 /HPF (<20); Urine Culture Reflex Order REFLEXED
--- NOTE | 2020-02-25 16:04 | RAD REPORT ---
EXAM DESCRIPTION: CT - Abdomen Pelvis W Contrast - 02/25/2020 3:52 pm CLINICAL HISTORY: right flank pain COMPARISON: Abdomen Pelvis W Contrast dated 12/18/2017 TECHNIQUE: Biphasic, helical CT imaging of the abdomen and pelvis was performed following 100 ml non -ionic IV contrast. All CT scans are performed using dose optimization technique as appropriate and may include automated exposure control or mA/KV adjustment according to patient size. FINDINGS: No suspicious findings in the lung bases. Liver shows no suspicious finding. No gallbladder or biliary tree abnormality. Gallstones can be occu lt on CT imaging. Pancreatic atrophy is present with no acute findings seen. A 3.7 centimeter splenic cyst has enlarged since 2018 but shows nonaggressive characteristics. Symmetric renal function is seen with no hydronephrosis or suspicious renal mass. No pyelonephritis o r acute parenchymal process. A 5.2 centimeter left renal cyst is fractionally increased from 2018. A 13 millimeter calcification lower pole of the right kidney has enlarged from approximately 10 mm in 2 018. No adrenal abnormalities. Partially filled urinary bladder shows no suspicious finding. Uterus a nd ovaries show no suspicious findings. No dilated bowel loops or bowel wall thickening. Colonic diverticulosis present without diverticuliti s. No free air, free fluid or inflammatory stranding. No hernia, mass or bulky lymphadenopathy. Disc and bony degenerative changes are present. No acute finding. Arterial tree calcifications present without acute finding. IMPRESSION: Colonic diverticulosis without diverticulitis. No acute bowel finding. No emergent abdomen or pelvic finding. Nonacute findings detailed in the body of the report.
--- NOTE | 2020-02-25 16:16 | ER ---
Nurse's Notes [facility] Name: Geovanna Del Toro Age: 84 yrs Sex: Female : 1935 Arrival Date: 02/25/2020 Time: 13:31 Bed 19 Private MD: Diagnosis: Urinary tract infection, site not specified Presentation: 02/24 13:39 Chief complaint: Patient states: Right sided abdominal pain that radiates to [address] area since Monday. No N/V/D. No fever. Coronavirus screen: Client denies travel out of the [place] in the last 14 days. At this time, the client does not indicate any symptoms associated with coronavirus-19. Ebola Screen: Patient denies travel to an Ebola-affected area in the 21 days before illness onset. Initial Sepsis Screen: Does the patient meet any 2 criteria? No. Patient's initial sepsis screen is negative. Risk Assessment: Do you want to hurt yourself or someone else? Patient reports no desire to harm self or others. Onset of symptoms was February 20, 2020. 13:39 Method Of Arrival: Ambulatory [facility] 13:39 Acuity: ANDERS 3 ll1 Historical: - Allergies: 13:40 NKA; ll1 - PMHx: 13:40 CVA; Hypertension; Hyperlipidemia; Diabetes - IDDM; Kidney stones; ll1 - Immunization history:: Flu vaccine is up to date. - Social history:: Smoking status: Patient denies any tobacco usage or history of. Patient/guardian denies using alcohol, street drugs. Screenin:00 Abuse screen: Denies threats or abuse. Denies injuries from another. Nutritional jl7 screening: No deficits noted. Tuberculosis screening: No symptoms or risk factors identified. Fall Risk IV access (20 points). Total Canales Fall Scale indicates No Risk (0-24 pts). Assessment: 14:00 General: Appears in no apparent distress. uncomfortable, Behavior is calm, cooperative, jl7 appropriate for age. Pain: Complains of pain in right flank Pain radiates to right upper quadrant Pain currently is 8 out of 10 on a pain scale. Pain began 2-3 days ago. Is continuous. Neuro: Level of Consciousness is awake, alert, obeys commands, Oriented to person, place, time, situation. Cardiovascular: Patient's skin is warm and dry. Respiratory: Airway is patent Respiratory effort is even, unlabored, Respiratory pattern is regular, symmetrical. GI: Bowel sounds present X 4 quads. Abd is soft and non tender. : Denies burning with urination, pain with urination. EENT: No signs and/or symptoms were reported regarding the EENT system. Derm: Skin is dry, Skin is normal, Skin temperature is warm. Musculoskeletal: No signs and/or symptoms reported regarding the musculoskeletal system. 15:39 Reassessment: Patient appears in no apparent distress at this time. No changes from jl7 previously documented assessment. Patient and/or family updated on plan of care and expected duration. Pain level reassessed. Patient is alert, oriented x 3, equal unlabored respirations, skin warm/dry/pink. Vital Signs: 13:39 BP 169 / 64; Pulse 77; Resp 18; Temp 98.5; Pulse Ox 100% ; Pain 8/10; ll1 14:00 BP 133 / 60; Pulse 65; Resp 15 S; Pulse Ox 100% on R/A; jl7 14:33 Pain 6/10; jl7 15:39 BP 152 / 65; Pulse 70; Resp 16; Pulse Ox 100% ; jl7 ED Course: 13:31 Patient arrived in ED. ag5 13:35 Felix Perdomo PA is PHCP. cp 13:35 Júnior Rodriguez MD is Attending Physician. cp 13:40 Triage completed. ll1 13:41 Arm band placed on Patient placed in an exam room, on a stretcher. ll1 14:00 Patient has correct armband on for positive identification. Bed in low position. Call jl7 light in reach. Side rails up X 1. Pulse ox on. NIBP on. Warm blanket given. 14:15 Initial lab(s) drawn, by ED staff, sent to lab. Urine collected: clean catch specimen, jl7 cloudy. Inserted saline lock: 20 gauge in right antecubital area, using aseptic technique. Blood collected. 15:37 Anup Dove, ALBERT is Primary Nurse. jl7 15:52 CT Abd/Pelvis - IV Contrast Only In Process Unspecified. EDMS 16:27 No provider procedures requiring assistance completed. IV discontinued, intact, jl7 bleeding controlled, No redness/swelling at site. Pressure dressing applied. Administered Medications: 14:15 Drug: TORadol - Ketorolac 15 mg Route: IVP; Site: right antecubital; jl7 14:33 Follow up: Pain 6/10 Adult; Response: No adverse reaction; Pain is decreased jl7 14:15 Drug: NS 0.9% 250 ml Route: IV; Rate: bolus; Site: right antecubital; jl7 15:00 Follow up: Response: No adverse reaction; IV Status: Completed infusion; IV Intake: jl7 250ml 16:19 Drug: Rocephin 1 grams Route: IV; Rate: bolus; Site: right antecubital; jl7 16:22 Follow up: Response: No adverse reaction; IV Status: Completed infusion jl7 Intake: 15:00 IV: 250ml; Total: 250ml. jl7 Outcome: 16:15 Discharge ordered by MD. rose 16:27 Discharged to home ambulatory. jl7 16:27 Condition: stable 16:27 Discharge instructions given to patient, Instructed on discharge instructions, follow up and referral plans. medication usage, Demonstrated understanding of instructions, follow-up care, medications, Prescriptions given X 2. 16:29 Patient left the ED. jl7 Signatures: Dispatcher [employer] EDMS Felix Perdomo PA PA cp Leal, Jahala, RN RN jl7 Char Felton 5 Nikki Shen RN RN ll1 Corrections: (The following items were deleted from the chart) 16:19 04:15 TORadol - Ketorolac 15 mg IVP in right antecubital jl7 jl7
--- NOTE | 2020-02-25 16:16 | EDPHYS ---
Physician Documentation [facility] Name: Geovanna Del Toro Age: 84 yrs Sex: Female : 1935 Arrival Date: 02/25/2020 Time: 13:31 Bed 19 Private MD: ED Physician Júnior Rodriguez HPI: 02/24 13:59 This 84 yrs old Black Female presents to ER via Ambulatory with complaints of Abdominal cp Pain, Side Pain. 13:59 The patient complains of pain in the right flank. The pain radiates to the abdomen. cp Onset: The symptoms/episode began/occurred 4 day(s) ago. Associated signs and symptoms: Pertinent negatives: diarrhea, dysuria, fever, pain radiating to the lower extremities, vomiting. Severity of pain: in the emergency department the pain is unchanged despite home interventions. Historical: - Allergies: 13:40 NKA; ll1 - PMHx: 13:40 CVA; Hypertension; Hyperlipidemia; Diabetes - IDDM; Kidney stones; ll1 - Immunization history:: Flu vaccine is up to date. - Social history:: Smoking status: Patient denies any tobacco usage or history of. Patient/guardian denies using alcohol, street drugs. ROS: 14:05 Constitutional: Negative for body aches, chills, fever, poor PO intake. cp 14:05 Eyes: Negative for injury, pain, redness, and discharge. cp 14:05 Cardiovascular: Negative for chest pain, edema, palpitations. 14:05 Respiratory: Negative for cough, shortness of breath, wheezing. 14:05 Abdomen/GI: Positive for abdominal pain, Negative for nausea, vomiting, and diarrhea, constipation, anorexia, black/tarry stool, rectal bleeding. 14:05 Back: Positive for flank pain, on the right. 14:05 Skin: Negative for rash. 14:05 Neuro: Negative for altered mental status, weakness. 14:05 All other systems are negative. Exam: 14:10 Constitutional: The patient appears in no acute distress, alert, awake, non-toxic, well cp developed, well nourished. 14:10 Head/Face: Normocephalic, atraumatic. cp 14:10 Eyes: Periorbital structures: appear normal, Conjunctiva: normal, no exudate, no injection, Sclera: no appreciated abnormality, Lids and lashes: appear normal, bilaterally. 14:10 ENT: External ear(s): are unremarkable, Nose: is normal, Mouth: Lips: moist, Posterior pharynx: Airway: no evidence of obstruction, patent. 14:10 Chest/axilla: Inspection: normal, Palpation: is normal, no crepitus, no tenderness. 14:10 Cardiovascular: Rate: normal, Rhythm: regular. 14:10 Respiratory: the patient does not display signs of respiratory distress, Respirations: normal, no use of accessory muscles, no retractions, labored breathing, is not present, Breath sounds: are clear throughout, no decreased breath sounds. 14:10 Abdomen/GI: Inspection: abdomen appears normal, Bowel sounds: active, all quadrants, Palpation: soft, in all quadrants, mild abdominal tenderness, in the umbilical area, anterior aspect of right lateral abdomen and right lower quadrant, rebound tenderness, is not appreciated, voluntary guarding, is not appreciated, involuntary guarding, is not appreciated. 14:10 Back: pain, that is mild, of the right mid back, ROM is normal. 14:10 Skin: no rash present. Vital Signs: 13:39 BP 169 / 64; Pulse 77; Resp 18; Temp 98.5; Pulse Ox 100% ; Pain 8/10; ll1 14:00 BP 133 / 60; Pulse 65; Resp 15 S; Pulse Ox 100% on R/A; jl7 14:33 Pain 6/10; jl7 15:39 BP 152 / 65; Pulse 70; Resp 16; Pulse Ox 100% ; jl7 MDM: 13:54 Patient medically screened. cp 14:30 Differential diagnosis: nephrolithiasis, pyelonephritis, UTI, pancreatitis, ruptured cp AAA, dissecting AAA. 16:14 Data reviewed: vital signs, nurses notes, lab test result(s), radiologic studies, CT cp scan. 16:14 Counseling: I had a detailed discussion with the patient and/or guardian regarding: the cp historical points, exam findings, and any diagnostic results supporting the discharge/admit diagnosis, lab results, radiology results, to return to the emergency department if symptoms worsen or persist or if there are any questions or concerns that arise at home. Response to treatment: the patient's symptoms have markedly improved after treatment, and as a result, I will discharge patient. 02/24 13:58 Order name: Basic Metabolic Panel; Complete Time: 15:11 cp /08 15:33 Interpretation: Normal except: CL 113; CRE 1.35; GFR 45. cp 02/24 13:58 Order name: CBC with Diff; Complete Time: 15:11 cp / 15:33 Interpretation: Normal except: RBC 3.75; HGB 11.6; HCT 34.7; MARIAH% 40.8; LYM% 50.2. cp 02/24 13:58 Order name: Hepatic Function; Complete Time: 15:11 cp 02/24 15:34 Interpretation: Normal except: TP 9.0; GLOB 5.2; A/G 0.7. cp / 13:58 Order name: Lipase; Complete Time: 15:11 cp / 15:35 Interpretation: LIP 28; Reviewed. cp 02/24 13:58 Order name: Urine Microscopic Only; Complete Time: 15:11 cp 02/24 15:34 Interpretation: Normal except: UWBC 5-10; URBC 5-10; UBACT 20-50; SQEPI 5-10. cp 02/24 14:26 Order name: Urine Dipstick--Ancillary (enter results); Complete Time: 15:11 em1 08 15:34 Interpretation: Normal except: UBLD 1+; UPROT 2+; UESTR 1+. 02/24 13:58 Order name: IV Saline Lock; Complete Time: 14:25 cp 02/24 13:58 Order name: Labs collected and sent; Complete Time: 14:25 cp 02/24 13:58 Order name: Urine Dipstick-Ancillary (obtain specimen); Complete Time: 14:25 cp 02/24 14:58 Order name: Urine Culture EDMN 02/24 15:12 Order name: CT Abd/Pelvis - IV Contrast Only; Complete Time: 16:07 cp Administered Medications: 14:15 Drug: TORadol - Ketorolac 15 mg Route: IVP; Site: right antecubital; jl7 14:33 Follow up: Pain 6/10 Adult; Response: No adverse reaction; Pain is decreased jl7 14:15 Drug: NS 0.9% 250 ml Route: IV; Rate: bolus; Site: right antecubital; jl7 15:00 Follow up: Response: No adverse reaction; IV Status: Completed infusion; IV Intake: jl7 250ml 16:19 Drug: Rocephin 1 grams Route: IV; Rate: bolus; Site: right antecubital; jl7 16:22 Follow up: Response: No adverse reaction; IV Status: Completed infusion jl7 Disposition: 17:47 Co-signature as Attending Physician, Júnior Rodriguez MD. rn Disposition: 02/25/20 16:15 Discharged to Home. Impression: Urinary tract infection, site not specified. - Condition is Stable. - Discharge Instructions: Urinary Tract Infection, Adult. - Prescriptions for Augmentin 875- 125 mg Oral Tablet - take 1 tablet by ORAL route every 12 hours for 7 days; 14 tablet. Tramadol 50 mg Oral Tablet - take 1 tablet by ORAL route every 8 hours as needed; 12 tablet. - Medication Reconciliation Form, Thank You Letter, Antibiotic Education, Prescription Opioid Use form. - Follow up: Private Physician; When: 1 - 2 days; Reason: Worsening of condition. - Problem is new. - Symptoms have improved. Signatures: Dispatcher [employer] EDMS Júnior Rodriguez MD MD rn Felix Perdomo PA PA cp Leal, Jahala, RN RN jl7 Nikki Shen RN RN ll1 Corrections: (The following items were deleted from the chart) 16:29 16:15 02/25/2020 16:15 Discharged to Home. Impression: Urinary tract infection, site jl7 not specified. Condition is Stable. Forms are Medication Reconciliation Form, Thank You Letter, Antibiotic Education, Prescription Opioid Use. Follow up: Private Physician; When: 1 - 2 days; Reason: Worsening of condition. Problem is new. Symptoms have improved. cp
[2020-02-25] MEDS ORDERED: CEFTRIAXONE/SWI 1gm 1 GM/10 ML SYR ONE (16:26)
[2020-02-25 21:32] VITALS: TEMP 98.5; O2SAT 100
[2020-02-25 21:35] VITALS: BP 152/65
== END 2020-02-25 16:29 | disposition home or self-care (01) ==
LOC: ER 13:29
DX: N39.0 Urinary tract infection, site not specified (principal); I10 Essential (primary) hypertension
CPT/HCPCS: 96365; 87088; 85025; 87086; 80048; 36415; 80076; 83690; 74177; 96375; 99284; Q9967; J0696; J7050; 81003; 81015

== ENCOUNTER 2021-09-27 09:58 | Emergency (ER) | payer OTHER ==
[2021-09-27] MEDS ORDERED: SUCCINYLCHOLINE 20 MG/ML (10 ML) IV ONE (09:59)
[2021-09-27] MEDS ORDERED: ETOMIDATE 20 MG/10 ML VIAL IV ONE (09:59)
[2021-09-27] MEDS ORDERED: ROCURONIUM 50 MG/5 ML VIAL IV ONE (09:59)
--- OUTSIDE RECORDS SUMMARY | 2021-09-27 10:31 | XMS REPORT | Continuity of Care Document ---
:1935 Author Organization [facility] t Address [address] [place] [address] [address]. [address] [place] [address] Care Team Providers Name Role Phone Fco MAYO Primary Care Physician Unavailable Doctor Unassigned, Name Attending Clinician Unavailable Cleo PRICE, A Attending Clinician Unavailable Abhishek Cheema MD Attending Clinician ABHISHEK CHEEMA Attending Clinician Unavailable Anette HSIEH, Abhishek Admitting Clinician ABHISHEK CHEEMA Admitting Clinician Unavailable Payers Payer Name Policy Type Policy Number Effective Date Expiration Date S ource Advance Directives Directive Decision Effective Termination Comments Source Date Date Healthcare Agents on N/A [facility] FileNameRelationshipHealthcare 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 ICD10 Diagnosis Term Client Engagement Manager Utility Essential Essential Disease Active Overview: Univers hypertensi hypertensi - Formattin ity of on on 00:00: g of this [place] 00 note Medical might be Branch different from the original. ICD10 Diagnosis Term Client Engagement Manager Utility HLD HLD Disease Active Overview: Univer s (hyperlipi (hyperlipi 11-06 Formattin ity of demia) demia) 00:00: g of this [place] 00 note Medical might be Branch different from the original. 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 ICD10 Diagnosis Term Client Engagement Manager Utility Glaucoma Glaucoma Disease Active Overview: Un ghassan 4-13 Formattin ity of 00:00: g of this [place] 00 note Medical might be Branch different from the original. SuspectIC D10 Diagnosis Term Client Engagement Manager Utility Allergies, Adverse Reactions, Alerts Allergy Allergy Status Severity Reaction(s) Onset Inactive Treating Comm ents Source Name Type Date Date Clinician NO KNOWN Drug Active Univers ALLERGIE Class ity of S [facility] Social History Social Habit Start Date Stop Date Quantity Comments Source Exposure to Not sure [facility]-CoV-2 [place] [facility] (event) Branch Alcohol intake 2021-08-23 2021-08-23 Current [facility] 00:00:00 00:00:00 non-drinker of [facility] alcohol Branch (finding) Education 2021-08-23 2021-08-23 9 [facility] 00:00:00 00:00:00 [facility] Sex Assigned At [birth year] Universit y of 00:00:00 00:00:00 [facility] Smoking Status Start Date Stop Date Source Never smoker [facility] Medications Ordered Filled Start Stop Current Ordering Indication Dosage Frequency Signature Comments Components Source Medication Medication Date Date Medication? Clinician (SIG) Name Name metFORMIN Yes 1000mg Take 1,000 Univers 1,000 mg 3-10 mg by ity of tablet 22:01: mouth daily. Medical Branch montelukast 0 Yes 10mg Take 10 mg Univers 10 mg 3-10 by mouth. ity of tablet 22:01: [place] [facility] pantoprazol 2021-0 Yes 40mg Take 40 mg Univers e 40 mg EC 3-10 by mouth ity o f tablet 22:01: daily. [place] [facility] metFORMIN 0 Yes 1000mg Take 1,000 Univers 1,000 mg 3-10 mg by ity of tablet 22:01: mouth 02 daily. Medical Branch montelukast 0 Yes 10mg Take 10 mg Univers 10 mg 3-10 by mouth. ity of tablet 22:01: [place] [facility] pantoprazol 0 Yes 40mg Take 40 mg Univers e 40 mg EC 3-10 by mouth ity o f tablet 22:01: daily. [address] metFORMIN Yes 1000mg Take 1,000 Univers 1,000 mg 3-10 mg by ity of tablet 22:01: mouth [place] daily. Medical Branch montelukast Yes 10mg Take 10 mg Univers 10 mg 3-10 by mouth. ity of tablet 22:01: [place] [facility] pantoprazol Yes 40mg Take 40 mg Univers e 40 mg EC 3-10 by mouth ity o f tablet 22:01: daily. [address] Branch losartan Yes 100mg 100 mg, Unive rs (COZAAR) 3-10 Oral, ity of tablet 100 15:00: DAILY, [place] mg 00 First dose Medical (after Branch last modificati on) on Angela 08/26/21 at 0900, Until Discontinu ed, Routine NaCl 0.9% 2021- No 1000mL at 999 Uni vers (NS) IV 3-10 03-10 mL/hr, IV ity of infusion 13:45: 14:27 Infusion, Gigi as 1,000 mL 00 :00 ONCE, 1 Medical dose, On Branch Angela 08/26/21 at 0745, NEY NaCl 0.9% 2021- No 500mL at 500 Univ ers (NS) bolus 3-10 03-10 mL/hr, 500 it y of infusion 06:00: 05:26 mL, IV [place] 500 mL 00 :00 Piggyback, Medical ONCE, 1 Branch dose, On [place] 08/26/21 at 0000, Routine fluticasone 0 Yes [id number] 1{spray Use 1 Univers propionate 3-10 } [place] in ity o f 50 00:00: each [place] mcg/actuati 00 nostril Medic al on nasal daily. Branch spray fluticasone 2021-0 Yes [id number] 1{spray Use 1 Univers propionate 3-10 } [place] in ity o f 50 00:00: each [place] mcg/actuati 00 nostril Medic al on nasal daily. Branch spray fluticasone 2021-0 Yes [id number] 1{spray Use 1 Univers propionate 3-10 } [place] in ity o f 50 00:00: each [place] mcg/actuati 00 nostril Medic al on nasal daily. Branch spray NaCl 0.9% 2021- No 1000mL at 999 Uni vers (NS) IV 3 03-10 mL/hr, IV ity of infusion 23:00: 12:42 Infusion, Gigi as 1,000 mL 00 :42 CONTINUOUS Medic al , Starting Branch on Mon08/25/21 at 1700, Until Angela 08/26/21 at 0642, NEY losartan 2021- No 100mg Take 100 Uni vers 100 mg 08-25 03-09 mg by ity of tablet 15:23: 00:00 mouth [place] 42 :00 daily. Medical Branch metoprolol 2021- No 100mg Take 100 U nivers tartrate 08-25 03-09 mg by ity of 100 mg 15:23: 00:00 mouth 2 [place] tablet 42 :00 (two) Medical times Branch daily. fluticasone 0 Yes 1{spray 1 [place], Univers propionate 3-09 } Nasal, ity of 50 15:00: DAILY, [place] mcg/actuati 00 First dose Me dical on nasal on Mon Branch spray 1 08/25/21 at [place] 0900, Until Discontinu ed, Routine hydroCHLORO 0 Yes 25mg 25 mg, Univ ers thiazide 3-09 Oral, ity of (ESIDRIX) 15:00: DAILY, [place] capsule 25 00 First dose Med ical mg on Mon Branch 08/25/21 at 0900, Until Discontinu ed, Routine KCL 2021- No 20meq 20 mEq, Univers (KLOR-CON 08-25- Oral, ity of M20) tablet 14:45: 14:16 ONCE, 1 [place] 20 mEq 00 :00 dose, On Medical 08/25/21 Branch at 0845, Routine metoprolol Yes [id number] 25mg Take 1 Univers tartrate 25 3-09 tablet by ity of mg tablet 00:00: mouth 2 [place] (two) Medical times Branch daily. aspirin 81 Yes [id number] 81mg Take 1 Univers mg chewable 3-09 tablet by ity of tablet 00:00: mouth [place] 00 daily. [facility] Branch metoprolol Yes [id number] 25mg Take 1 Univers tartrate 25 3-09 tablet by ity of mg tablet 00:00: mouth 2 [place] 00 (two) Medical times Branch daily. aspirin 81 Yes [id number] 81mg Take 1 Univers mg chewable 3-09 tablet by ity of tablet 00:00: mouth [place] 00 daily. [facility] Branch metoprolol Yes [id number] 25mg Take 1 Univers tartrate 25 3-09 tablet by ity of mg tablet 00:00: mouth 2 [place] (two) Medical times [place] daily. aspirin 81 Yes [id number] 81mg Take 1 Univers mg chewable 3-09 tablet by ity of tablet 00:00: mouth [place] 00 daily. [facility] Branch insulin NPH Yes 20U 20 Units, U nivers and regular - Subcutaneo it y of human 70-30 23:00: us, QPM, [place] (HUMULIN 00 First dose Medic al 70-30 U-100 on Mon Branch INSULIN) 08/24/21 at 100 unit/mL 1700, (70-30) Until injection Discontinu 20 Units ed, Routine sulfur 2021- No [id number] 5mL 5 mL, Univ ers hexafluorid 08-24 Intravenou i ty of e microsphr 17:15: 17:15 s, ONCE, 1 [place] (LUMASON) 00 :00 dose, On Medica l injection 5 3/8/22 Br anch mL at 1115, Routine
member of congress approving Restricted medication : JOHNNIE EH, TAREQ NaCl 0.9% 202- No 500mL at 999 Univ ers (NS) bolus 08-24-08 mL/hr, 500 it y of infusion 15:45: 15:31 mL, IV [place] 500 mL 00 :00 Piggyback, Medical ONCE, 1 Branch dose, On Mon08/24/21 at 0945, NEY insulin NPH Yes 50U 50 Units, U nivers and regular 08-24 Subcutaneo it y of human 70-30 15:00: us, QAM, [place] (HUMULIN 00 First dose Medic al 70-30 U-100 on [facility] INSULIN) 08/24/21 at 100 unit/mL 0900, (70-30) Until injection Discontinu 50 Units ed, Routine pantoprazol Yes 40mg 40 mg, Univ ers e 3 Oral, ity of (PROTONIX) 15:00: DAILY, [place] EC tablet 00 First dose Medi checo 40 mg on [facility] 08/24/21 at 0900, Until Discontinu ed, Routine montelukast Yes 10mg 10 mg, [facility] [place] [facility] ers (SINGULAIR) 3 Oral, ity of tablet 10 15:00: DAILY, [place] mg 00 First dose Medical on [facility] 08/24/21 at 0900, Until Discontinu ed, Routine amLODIPine Yes 10mg 10 mg, [facility] [place] [facility] (NORVASC) 3-08 Oral, ity of tablet 10 15:00: DAILY, [place] mg 00 First dose Medical on [facility] 08/24/21 at 0900, Until Discontinu ed, Routine furosemide 0 Yes 20mg 20 mg, [facility] [place] [facility] (LASIX) 3-08 Oral, QAM, ity of tablet 20 15:00: First dose [place] mg 00 on [facility] 08/24/21 at Branch 0900, Until Discontinu ed, Routine losartan 2021-0 2021- No 100mg 100 mg, [facility] [place] [facility] ers (COZAAR) 3 03-09 Oral, ity of tablet 100 15:00: 14:12 DAILY, [place] mg 00 :25 First dose Medical on [facility] 08/24/21 at 0900, Until Discontinu ed, Routine magnesium 2021- No 4g 4 g, IV Univ ers sulfate in 08-24-08 Piggyback, it y of water 4 14:15: 15:31 ONCE, 1 [place] gram/50 mL 00 :00 dose, On Medic al (8 %) IV Tue 08/24/21 Branc h Piggyback 4 at 0815, g Routine heparin 2021-0 Yes 5000U 5,000 Univers (porcine) 3-08 Units, ity of injection 04:00: Subcutaneo [place] 5,000 Units 00 us, Q8H, Medi checo First dose Branch on [facility] 08/23/21 at 2200, Until Discontinu ed, Routine cetirizine 2021- No 5mg 5 mg, Unive rs (ZYRTEC) 08-24-08 Oral, ity of tablet 5 mg 03:38: 05:44 ONCE, 1 [place] 00 :00 dose, On Medical [facility] 08/23/21 Branch at 2145, Routine atorvastati 0 Yes 20mg 20 mg, Univ ers n (LIPITOR) 3-08 Oral, QHS, it y of tablet 20 03:00: First dose [place] mg 00 on [facility] 08/23/21 at Branch 2100, Until Discontinu ed, Routine Sliding 0 Yes Subcutaneo Univ ers Scale 3-08 us, TID ity of Insulin - 03:00: MEALS+HS, [place] as Lispro 00 First dose Medical (HumaLOG) + on [facility] 08/23/21 at Testing 2100, Until Discontinu ed, Routine gabapentin 0 Yes 300mg 300 mg, Uni vers (NEURONTIN) 3-08 Oral, TID, it y of capsule 300 02:00: First dose [place] mg 00 on [facility] 08/23/21 at Branch 2000, Until Discontinu ed, Routine metoprolol 0 Yes 25mg 25 mg, Unive rs tartrate 3-08 Oral, BID, ity o f (LOPRESSOR) 02:00: First dose [place] tablet 25 00 on [facility] mg 08/23/21 at Branch 2000, Until Discontinu ed, Routine NaCl 0.9% 2021- No 500mL at 999 Univ ers (NS) bolus 3-08 03-08 mL/hr, 500 it y of infusion 01:00: 00:43 mL, IV [place] 500 mL 00 :00 Piggyback, Medical ONCE, 1 Branch dose, On Mon08/23/21 at 1900, STAT glucagon Yes 1mg 1 mg, Univers (GLUCAGEN 08-23 Intramuscu ity of DIAGNOSTIC 23:10: lar, PRN, [place] KIT) 07 Starting Medical injection 1 on Mon Branch mg 08/23/21 at 1710, Until Discontinu ed, NEY, Blood Glucose < or = 70 mg/dL and patient is unable to swallow or has mental changes. dextrose 50 Yes 25mL 25 mL, Univ ers % in water 08-23 Slow IV ity of (D50W) 23:10: Push, PRN, [place] injection 07 Starting Medica l 25 mL on Mon Branch 08/23/21 at 1710, Until Discontinu ed, NEY, Blood Glucose < or = 70 mg/dL and patient is unable to swallow or has mental status changes. acetaminoph Yes 650mg 650 mg, Un ghassan en 08-23 Oral, ity of (TYLENOL) 23:03: Q6HPRN, [place] tablet 650 58 Starting Medic al mg on Mon Branch 08/23/21 at 1703, Until Discontinu ed, Routine, Pain (scale 1-3) ergocalcife 2021- No Take by U aftab rol, 08-23-07 mouth. ity of vitamin D2, 17:29: 00:00 [place] (VITAMIN D 00 :00 Medical ORAL) Branch traMADOL 50 2021- No 50mg Take 1 Uni vers mg tablet -03 21-07 tablet by ity of 00:00: 00:00 mouth [place] 00 :00 every 4 Medical (four) Branch hours as needed for Pain (scale 7-10). traMADOL 50 2021- No 50mg Take 1 Uni vers mg tablet -12 -07 tablet by ity of 00:00: 00:00 mouth [place] 00 :00 every 4 Medical (four) Branch hours as needed for Pain (scale 7-10). acetaminoph 2021- No 1 - 2 by U nivers en-codeine 08-22 mouth ity of (TYLENOL-CO 00:00: 00:00 every 4-6 [place] DEINE #3) 00 :00 hours as Medica l 300-30 mg needed for Bran ch tablet pain HYDROcodone 2021- No TK 1 T PO Univers -acetaminop 07-25 Q 6 H PRN it y of hen 10-325 00:00: 00:00 P [place] mg tablet 00 :00 Medical Branch losartan-hy 2021- No TK 1 T PO Univers drochloroth 06-28 QD ity of iazide 00:00: 00:00 [place] 100-25 mg 00 :00 Medical per tablet Branch amLODIPine 2016-06 Yes 10mg Take 10 mg U nivers 10 mg 1-22 by mouth ity of tablet 00:00: daily. [place] [facility] Branch amLODIPine 2016-06 Yes 10mg Take 10 mg U nivers 10 mg 1-22 by mouth ity of tablet 00:00: daily. [place] [facility] amLODIPine 2016-06 Yes 10mg Take 10 mg U nivers 10 mg 1-22 by mouth ity of tablet 00:00: daily. [place] [facility] Branch gabapentin 2016-06 Yes 300mg Take 300 Un ghassan 100 mg 1-02 mg by ity of capsule 00:00: mouth 3 [place] ([facility]) Medical times Branch daily. gabapentin 2016-06 Yes 300mg Take 300 Un ghassan 100 mg 1-02 mg by ity of capsule 00:00: mouth 3 [place] ([facility]) Medical times Branch daily. gabapentin 2016-06 Yes 300mg Take 300 Un ghassan 100 mg 1-02 mg by ity of capsule 00:00: mouth 3 [place] (three) Medical times Branch daily. hydralAZINE 2016-06 No 25mg Take 25 mg Univers 10 mg 0-06 09- by mouth 3 ity of tablet 00:00: 00:00 (three) [place] 00 :00 times Medical daily. Branch HYDROCHLORO Yes [id number] 1 tab U nivers THIAZIDE 25 2-03 daily ity of MG ORAL TAB 00:00: [place] [facility] Branch HYDROCHLORO Yes [id number] 1 tab U nivers THIAZIDE 25 2-03 daily ity of MG ORAL TAB 00:00: [place] [facility] HYDROCHLORO Yes [id number] 1 tab U nivers THIAZIDE 25 2-03 daily ity of MG ORAL TAB 00:00: [place] 00 Medical Branch RANITIDINE 2007-06- No [id number] 1 tab po Univers HCL 150 MG 06-24- bid ity of ORAL TAB 00:00: 00:00 [place] 00 :00 Medical Branch LIPITOR 20 Yes [id number] 1 tab qhs Univers MG ORAL TAB 6-11 ity of 00:00: [place] 00 Medical Branch INSULIN Yes [id number] 55 units Un ghassan NPH-REGULAR 6-11 SC Qam ity o f HUMAN 70-30 00:00: [place] 100 UNIT/ML 00 Medical (70-30) SC Branch SUSP INSULIN Yes [id number] 25 units Un ghassan NPH-REGULAR 6-11 SC Qpm ity of HUMAN 70-30 00:00: [place] 100 UNIT/ML 00 Medical (70-30) SC Branch SUSP INSULIN Yes [id number] use as Univ ers SYRINGE 6-11 directed ity of ULTRAFINE 00:00: for [place] 0.3 ML 29 X 00 injecting Med ical 1/2 " MISC insulin Branch SYRG subcutaneo usly LIPITOR 20 Yes [id number] 1 tab qhs Univers MG ORAL TAB 6-11 ity of 00:00: [place] 00 Medical Branch INSULIN Yes [id number] 55 units Un ghassan NPH-REGULAR 6-11 SC Qam ity o f HUMAN 70-30 00:00: [place] 100 UNIT/ML 00 Medical (70-30) SC Branch SUSP INSULIN Yes [id number] 25 units Un ghassan NPH-REGULAR 6-11 SC Qpm ity of HUMAN 70-30 00:00: [place] 100 UNIT/ML 00 Medical (70-30) SC Branch SUSP INSULIN Yes [id number] use as Univ ers SYRINGE 6-11 directed ity of ULTRAFINE 00:00: for [place] 0.3 ML 29 X 00 injecting Med ical 1/2 " MISC insulin Branch SYRG subcutaneo usly LIPITOR 20 Yes [id number] 1 tab qhs Univers MG ORAL TAB 6-11 ity of 00:00: [place] 00 Medical Branch INSULIN Yes [id number] 55 units Un ghassan NPH-REGULAR 6-11 SC Qam ity o f HUMAN 70-30 00:00: [place] 100 UNIT/ML 00 Medical (70-30) SC Branch SUSP INSULIN Yes [id number] 25 units Un ghassan NPH-REGULAR -11 SC Qpm ity of HUMAN 70-30 00:00: [place] 100 UNIT/ML 00 Medical (70-30) SC Branch SUSP INSULIN Yes [id number] use as Univ ers SYRINGE 11-27 directed ity of ULTRAFINE 00:00: for [place] 0.3 ML 29 X 00 injecting Med ical 1/2 " [facility] insulin Branch SYRG subcutaneo usly NORCO 2021- No [id number] 1 tab q Univ ers 7.5-325 MG 11-27 4-6 hr PRN it y of ORAL TAB 00:00: 00:00 [place] 00 :00 Medical Branch LOSARTAN 50 2021- No [id number] BID U nivers MG ORAL TAB 11-27 ity of 00:00: 00:00 [place] 00 :00 Medical Branch VERAPAMIL 2021- No [id number] Take 1 U nivers 240 MG ORAL 11-27 tablet ity o f TBSR 00:00: 00:00 once daily [place] 00 :00 Medical Branch POTASSIUM 2021- No [id number] Take 1 U nivers CHLORIDE 20 06-25 tablet ity o f MEQ ORAL 00:00: 00:00 once a [place] TBTQ 00 :00 day. Medical Branch ASPIRIN 325 2021- No [id number] take 1 Univers MG ORAL 06-25 tablet ity of TBEC 00:00: 00:00 once a day [place] 00 :00 Medical Branch FUROSEMIDE 2006-06 Yes [id number] Take 1 Univers 20 MG ORAL 2-17 tablet by ity of TAB 00:00: mouth in [place] 00 the Medical morning Branch FUROSEMIDE 2006-06 Yes [id number] Take 1 Univers 20 MG ORAL 2-17 tablet by ity of TAB 00:00: mouth in [place] 00 the Medical morning Branch FUROSEMIDE 2006-06 Yes [id number] Take 1 Univers 20 MG ORAL 2-17 tablet by ity of TAB 00:00: mouth in [place] 00 the Medical morning Branch FELODIPINE 2006-062- No [id number] 1 tab Un ghassan 10 MG ORAL 2-17 08-23 daily ity of TB24 00:00: 00:00 [place] 00 :00 Medical Branch INSULIN 2006-0 Yes [id number] 1 month Uni vers SYRINGE 0.3 4-09 supply ity of ML 28 X 1" 00:00: [place] MISC SYRG 00 Medical Branch INSULIN 2006-0 Yes [id number] 1 month Uni vers SYRINGE 0.3 4-09 supply ity of ML 28 X 1" 00:00: [place] MISC SYRG 00 Medical Branch INSULIN 2006- Yes [id number] 1 month Uni vers SYRINGE 0.3 4-09 supply ity of ML 28 X 1" 00:00: [place] MISC SYRG 00 Medical Branch Immunizations Ordered Filled Immunization Date Status Comments Sour e Immunization Name Name Influenza Virus 2021-08-26 Completed Universit y of Vaccine,quad 00:00:00 [place] Medica l Im,preserve Free Branch 65+ SARS-COV-2 COVID-19 2021-08-26 Completed Unive rsity of MODERNA VACCINE 00:00:00 [facility] Influ[facility] Virus 2021-08-26 Completed Universit y of Vaccine,quad 00:00:00 [place] Medica l Im,preserve Free Branch 65+ SARS-COV-2 COVID-19 2021-08-26 Completed Unive rsity of MODERNA VACCINE 00:00:00 [facility] Influenza Virus 2021-08-26 Completed Universit y of Vaccine,quad 00:00:00 [place] Medica l Im,preserve Free Branch 65+ SARS-COV-2 COVID-19 2021-08-26 Completed Unive rsity of MODERNA VACCINE 00:00:00 [facility] Pneumococcal 2019-08-15 Completed University o f Polysaccharide, 00:00:00 [facility] ical PPSV23 (PNEUMOVAX) Branch Influenza High Dose 2019-08-15 Completed Unive rsity of 00:00:00 [facility] Pneumococcal 2019-08-15 Completed University o f Polysaccharide, 00:00:00 [facility] ical PPSV23 (PNEUMOVAX) Branch Influenza High Dose 2019-08-15 Completed Unive rsity of 00:00:00 [facility] Pneumococcal 2019-08-15 Completed University o f Polysaccharide, 00:00:00 [facility] ical PPSV23 (PNEUMOVAX) Branch Influenza High Dose 2019-08-15 Completed Unive rsity of 00:00:00 [facility] Vital Signs Vital Name Observation Time Observation Value Comments Source Systolic blood 2021-08-26 21:07:00 120 mm[Hg] Univer sity of pressure [facility] Diastolic blood 2021-08-26 21:07:00 55 mm[Hg] Unive rsity of pressure [facility] Heart rate 2021-08-26 21:07:00 61 /min [facility] Body temperature 2021-08-26 21:07:[address] [facility] Respiratory rate 2021-08-26 21:07:00 18 /min [facility] Oxygen saturation in 2021-08-26 21:07:00 97 /min [facility] Arterial blood by [facility] Pulse oximetry [place] Body height 2021-08-24 17:04:00 167.6 cm [facility] Body weight 2021-08-24 17:04:00 90.719 kg [facility] BMI 2021-08-24 17:04:00 32.28 kg/m2 [facility] Procedures Procedure Date / Time Performing Clinician Source Performed EXTERNAL PROVIDER 2021-09-01 05:01:00 Doctor Unassigned, No [facility] RECORDS Name [facility] POCT GLUCOSE (AUTOMATED) 2021-08-26 23:19:00 Jase Cheema [facility] BASIC METABOLIC PANEL 2021-08-26 20:02:00 Gopal Mickie [facility] (NA, K, CL, CO2, [facility] Branch GLUCOSE, BUN, CREATININE, CA) POCT GLUCOSE (AUTOMATED) 2021-08-26 17:57:00 Jase Cheema [facility] POCT GLUCOSE (AUTOMATED) 2021-08-26 14:26:00 Jase Cheema [facility] MAGNESIUM 2021-08-26 10:58:00 Gopal Mickie Fortuna o f [facility] BASIC METABOLIC PANEL 2021-08-26 10:58:00 [facility] ([facility], K, CL, CO2, [facility] GLUCOSE, BUN, CREATININE, CA) CBC WITH DIFF 2021-08-26 10:58:00 Gopal [facility] BASIC METABOLIC PANEL 2021-08-26 03:22:00 Ashley Moore [facility] (NA, K, CL, CO2, Medical Branch GLUCOSE, BUN, CREATININE, CA) POCT GLUCOSE (AUTOMATED) 2021-08-26 02:59:00 Jase Cheema [facility] URINALYSIS 2021-08-26 01:57:00 Gopal [facility] URINE CULTURE 2021-08-26 01:57:00 Gopal [facility] CREATININE, URINE RANDOM 2021-08-26 01:54:[address] [facility] UREA NITROGEN, URINE 2021-08-26 01:54:00 Gopal [facility] SODIUM, URINE RANDOM 2021-08-26 01:54:00 Gopal [facility] POCT GLUCOSE (AUTOMATED) 2021-08-25 23:33:00 Jase Cheema [facility] BASIC METABOLIC PANEL 2021-08-25 22:27:00 Gopal [facility] (NA, K, CL, CO2, Medical Branch GLUCOSE, BUN, CREATININE, CA) POCT GLUCOSE (AUTOMATED) 2021-08-25 18:14:00 Jase Cheema [facility] POCT GLUCOSE (AUTOMATED) 2021-08-25 13:59:00 Jase Cheema [facility] MAGNESIUM 2021-08-25 10:32:00 Gopal [facility] BASIC METABOLIC PANEL 2021-08-25 10:32:00 Gopal [facility] (NA, K, CL, CO2, Medical Branch GLUCOSE, BUN, CREATININE, CA) CBC WITH DIFF 2021-08-25 10:32:00 Gopal [facility] POCT GLUCOSE (AUTOMATED) 2021-08-25 02:51:00 Jase Cheema [facility] POCT GLUCOSE (AUTOMATED) 2021-08-24 23:39:00 Jase Cheema [facility] TROPONIN I 2021-08-24 22:14:00 Meliza [facility] POCT GLUCOSE (AUTOMATED) 2021-08-24 18:04:00 Jase Cheema [facility] CAROTID DUPLEX BILATERAL 2021-08-24 17:44:18 Meliza [facility] - BY VASCULAR LAB Medical Branch TRANSTHORACIC ECHO (TTE) 2021-08-24 17:04:11 Mickie Herron [facility] COMPLETE W/ CONTRAST Medical Bra nch TROPONIN I 2021-08-24 16:22:00 Meliza [facility] POCT GLUCOSE (AUTOMATED) 2021-08-24 14:42:00 Jase Cheema [facility] CT ABDOMEN PELVIS WO 2021-08-24 14:30:59 Gopal [facility] CONTRAST [facility] CT HEAD WO CONTRAST 2021-08-24 14:29:35 Gopal [facility] [place] [facility] PROTHROMBIN TIME / INR 2021-08-24 11:50:00 Андрей Haider [facility] MAGNESIUM 2021-08-24 11:49:00 Meliza [facility] IRON PANEL 2021-08-24 11:49:00 Meliza [facility] MAGNESIUM 2021-08-24 09:25:00 Gopal [facility] [place] [facility] FERRITIN SERUM 2021-08-24 09:25:00 Meliza [facility] TROPONIN I 2021-08-24 09:25:00 Meliza [facility] HEPATIC FUNCTION PANEL 2021-08-24 09:25:00 Андрей Haider [facility] ([id number]) (ALB,T.PRO,BILI Medical Branch T,BU/BC,ALT,AST,ALK PHOS) BASIC METABOLIC PANEL 2021-08-24 09:25:00 [facility] (NA, K, CL, CO2, Medical Branch GLUCOSE, BUN, CREATININE, CA) LIPID PANEL 2021-08-24 09:25:00 Андрей Haider [facility] ([id number])(TOTAL [facility] [place] CHOLESTEROL, TRIGLYCERIDES, HDL) CBC WITH DIFF 2021-08-24 09:25:00 Gopal [facility] [place] [facility] GLYCOSYLATED HEMOGLOBIN 2021-08-24 09:25:00 Meliza [facility] (A1C) [facility] N-TERMINAL PRO-BNP 2021-08-24 09:25:00 [facility] POCT GLUCOSE (AUTOMATED) 2021-08-24 02:40:00 Jase Cheema [facility] POCT GLUCOSE (AUTOMATED) 2021-08-24 00:00:00 Jase Cheema [facility] XR CHEST 1 VW 2021-08-23 23:54:00 Gopal [facility] Encounters Start End Encounter Admission Attending Care Care Encounter Source Date/Time Date/Time Type Type Clinicians Facility Department ID 2021-09-01 2021-09-01 Orders Doctor ARMEN [id number] Univers 00:00:00 00:00:00 Only Unassigned, EITAN 350.1.13.10 ity of [place] [facility] 4.2.7.2.686 Gigi as [id number] [facility] 009 Branch 2021-08-27 2021-08-27 Transition ORLANDO Gallo [id number] Univers 00:00:00 00:00:00 of Care [place]bey [place] 350.1.13.10 [place] [id number] [facility] 403 Branch 2021-08-23 2021-08-26 Hospital Jase Cheema 1.2.840.114 [id number] Univers 16:11:00 20:00:00 Encounter Sesung EITAN 350.1.13.10 ity of HOSPITAL 4.2.7.2.686 Gigi as [phone] [facility] 094 Branch 2021-08-23 2021-08-26 Outpatient U ANETTE, JASE [facility] [id number] Univers 16:11:00 20:00:00 [facility] Results Test Description Test Time Test Comments Results Result Comments Source POCT GLUCOSE (AUTOMATED) 2021-08-26 23:21:06 Test Item Value Reference Range Interpretation Comme nts POCT GLU (test code = 6168158731) 142 mg/dL 70-110 H Lab Interpretation (test code = 60792-3) [facility] (NA, K, CL, CO2, GLUCOSE, BUN, CREATININE, CA)2021-08-26 20:39:47 Test Item Value Reference Range Interpretation Comments NA (test code = 133 mmol/L 135-145 L 3495285602) K (test code = 4.2 mmol/L 3.5-5.0 1138918829) CL (test code = 107 mmol/L 98-108 5676936572) CO2 TOTAL (test code = 26 mmol/L 23-31 6732987811) AGAP (test code = <1 2-16 L 0348309136) BUN (test code = 33 mg/dL 7-23 H 0839166692) GLUCOSE (test code = 130 mg/dL 70-110 H 9414517830) CREATININE (test code = 1.55 mg/dL 0.50-1.04 H 0739519590) CALCIUM (test code = 7.4 mg/dL 8.6-10.6 L 0149005275) eGFR (test code = mL/min/1.73m2 6531600886) CANDACE (test code = CANDACE) Association of Glomerular Filtration Rate (GFR) and Staging of Kidney Disease* + --+ --+ ------+| GFR (mL/min/1.73 m2) ?| With Kidney Damage ?| ?Without Kidney Damage+ --------+ --------+ +| ?>90 ?| ?Stage one ?| ? Normal ?+ ---+ ---+ -------+| ?60-89 ?| ?Stage two ?| ? Decreased GFR ? + --+ --+ ------+| ?30-59 ?| ?Stage three ?| ? Stage three ? + --+ --+ ------+| ?15-29 ?| ?Stage four ? | ? Stage four ?+ ---+ ---+ -------+| ?<15 (or dialysis) ? ?| ?Stage five ? | ? Stage five ?+ ---+ ---+ -------+ *Each stage assumes the associated GFR level has been in effect for at least three months. ?Stages 1 to 5, with or without kidney disease, indicate chronic kidney disease. Notes: Determination of stages one and two (with eGFR >59mL/min/1.73 m2) requires estimation of kidney damage for at least three months as defined by structural or functional abnormalities of the kidney, manifested by either:Pathological abnormalities or Markers of kidney damage (including abnormalities in the composition of the blood or urine or abnormalities in imaging tests). Lab Interpretation Abnormal (test code = 55141-2) [facility] GLUCOSE (AUTOMATED)2021-08-26 17:59:17 Test Item Value Reference Range Interpretation Comments POCT GLU (test code = 9432683102) 120 mg/dL 70-110 H Lab Interpretation (test code = Abnormal 77380-2) [facility] GLUCOSE (AUTOMATED)2021-08-26 14:27:31 Test Item Value Reference Range Interpretation Comments POCT GLU (test code = 4706987129) 89 mg/dL 70-110 Lab Interpretation (test code = Normal 19999-1) [facility] WITH [id number] 12:39:43 Test Item Value Reference Range Interpretation Comments WBC (test code = See_Comment [Automated 6690-2) message] The sy stem which generated this result transmitted reference range : 4.30 - 11.10 10*3/?L. The reference range was not used to interpret this result as normal/abnormal . RBC (test code = See_Comment L [Automated 789-8) message] The sy stem which generated this result transmitted reference range : 3.93 - 5.25 10*6/?L. The reference range was not used to interpret this result as normal/abnormal . HGB (test code = 9.9 g/dL 11.6-15.0 L 718-7) HCT (test code = 30.2 % 35.7-45.2 L 4544-3) MCV (test code = 94.1 fL 80.6-95.5 787-2) MCH (test code = 30.8 pg 25.9-32.8 785-6) MCHC (test code = 32.8 g/dL 31.6-35.1 786-4) RDW-SD (test code = 46.6 fL 39.0-49.9 48966-9) RDW-CV (test code = 13.6 % 12.0-15.5 788-0) PLT (test code = See_Comment [Automated 777-3) message] The sy stem which generated this result transmitted reference range : 166 - 358 10*3/ ?L. The reference r lay was not used to interpret this result as normal/abnormal . MPV (test code = 10.5 fL 9.5-12.9 71140-4) NRBC/100 WBC (test See_Comment [Automat ed code = 5171966991) message] The system which generated this result transmitted reference range : 0.0 - 10.0 /100 WBCs. The refer ence range was not u sed to interpret th is result as normal/abnormal . NRBC x10^3 (test code <0.01 See_Comment [Auto mated = 4631471017) message] The s ystem which generated this result transmitted reference range : 10*3/?L. The reference range was not used to interpret this result as normal/abnormal . GRAN MAT (NEUT) % 33.3 % (test code = 770-8) IMM GRAN % (test code 0.20 % = 9647499660) LYMPH % (test code = 52.1 % 736-9) MONO % (test code = 8.2 % 5905-5) EOS % (test code = 5.2 % 713-8) BASO % (test code = 1.0 % 706-2) GRAN MAT x10^3(ANC) 1.68 10*3/uL 1.88-7.09 L (test code = 5183744262) IMM GRAN x10^3 (test <0.03 0.00-0.06 code = 8181079671) LYMPH x10^3 (test code 2.62 10*3/uL 1.32-3.29 = 731-0) MONO x10^3 (test code 0.41 10*3/uL 0.33-0.92 = 742-7) EOS x10^3 (test code = 0.26 10*3/uL 0.03-0.39 711-2) BASO x10^3 (test code 0.05 10*3/uL 0.01-0.07 = 704-7) Lab Interpretation Abnormal (test code = 39932-5) [facility] METABOLIC PANEL (NA, K, CL, CO2, GLUCOSE, BUN, CREATININE, CA)2021-08-26 12:32:18 Test Item Value Reference Range Interpretation Comments NA (test code = 134 mmol/L 135-145 L 0893265423) K (test code = 3.9 mmol/L 3.5-5.0 7241921990) CL (test code = 106 mmol/L 98-108 3980740415) CO2 TOTAL (test code = 22 mmol/L 23-31 L 7913784958) AGAP (test code = 2-16 0220040564) BUN (test code = 36 mg/dL 7-23 H 8103608369) GLUCOSE (test code = 116 mg/dL 70-110 H 6296935547) CREATININE (test code = 1.63 mg/dL 0.50-1.04 H 5689599093) CALCIUM (test code = 7.3 mg/dL 8.6-10.6 L 6519816442) eGFR (test code = mL/min/1.73m2 4419841180) CANDACE (test code = CANDACE) Association of Glomerular Filtration Rate (GFR) and Staging of Kidney Disease* + --+ --+ ------+| GFR (mL/min/1.73 m2) ?| With Kidney Damage ?| ?Without Kidney Damage+ --------+ --------+ +| ?>90 ?| ?Stage one ?| ? Normal ?+ ---+ ---+ -------+| ?60-89 ?| ?Stage two ?| ? Decreased GFR ? + --+ --+ ------+| ?30-59 ?| ?Stage three ?| ? Stage three ? + --+ --+ ------+| ?15-29 ?| ?Stage four ? | ? Stage four ?+ ---+ ---+ -------+| ?<15 (or dialysis) ? ?| ?Stage five ? | ? Stage five ?+ ---+ ---+ -------+ *Each stage assumes the associated GFR level has been in effect for at least three months. ?Stages 1 to 5, with or without kidney disease, indicate chronic kidney disease. Notes: Determination of stages one and two (with eGFR >59mL/min/1.73 m2) requires estimation of kidney damage for at least three months as defined by structural or functional abnormalities of the kidney, manifested by either:Pathological abnormalities or Markers of kidney damage (including abnormalities in the composition of the blood or urine or abnormalities in imaging tests). Lab Interpretation Abnormal (test code = 83289-9) [facility] 12:32:18 Test Item Value Reference Range Interpretation Comments MAGNESIUM (test code = 4520476624) 2.3 mg/dL 1.7-2.4 Lab Interpretation (test code = Normal 67199-2) [facility]OL[facility] (NA, K, CL, CO2, GLUCOSE, BUN, CREATININE, CA)2021-08-26 04:35:40 Test Item Value Reference Range Interpretation Comments NA (test code = 135 mmol/L 135-145 7093700704) K (test code = 4.1 mmol/L 3.5-5.0 8767109467) CL (test code = 108 mmol/L 98-108 9280713150) CO2 TOTAL (test code = 25 mmol/L 23-31 1787037307) AGAP (test code = 2-16 2051232674) BUN (test code = 39 mg/dL 7-23 H 0217923480) GLUCOSE (test code = 167 mg/dL 70-110 H 9547683428) CREATININE (test code = 1.70 mg/dL 0.50-1.04 H 4091789342) CALCIUM (test code = 7.6 mg/dL 8.6-10.6 L 8850375041) eGFR (test code = mL/min/1.73m2 6228186188) CANDACE (test code = CANDACE) Association of Glomerular Filtration Rate (GFR) and Staging of Kidney Disease* + --+ --+ ------+| GFR (mL/min/1.73 m2) ?| With Kidney Damage ?| ?Without Kidney Damage+ --------+ --------+ +| ?>90 ?| ?Stage one ?| ? Normal ?+ ---+ ---+ -------+| ?60-89 ?| ?Stage two ?| ? Decreased GFR ? + --+ --+ ------+| ?30-59 ?| ?Stage three ?| ? Stage three ? + --+ --+ ------+| ?15-29 ?| ?Stage four ? | ? Stage four ?+ ---+ ---+ -------+| ?<15 (or dialysis) ? ?| ?Stage five ? | ? Stage five ?+ ---+ ---+ -------+ *Each stage assumes the associated GFR level has been in effect for at least three months. ?Stages 1 to 5, with or without kidney disease, indicate chronic kidney disease. Notes: Determination of stages one and two (with eGFR >59mL/min/1.73 m2) requires estimation of kidney damage for at least three months as defined by structural or functional abnormalities of the kidney, manifested by either:Pathological abnormalities or Markers of kidney damage (including abnormalities in the composition of the blood or urine or abnormalities in imaging tests). Lab Interpretation Abnormal (test code = 37952-3) [facility]2021-08-26 03:01:01 Test Item Value Reference Range Interpretation Comments POCT GLU (test code = 4827142915) 176 mg/dL 70-110 H Lab Interpretation (test code = Abnormal 40183-0) [facility] MET[facility]OLIC PAN[facility] (NA, K, CL, CO2, GLUCOSE, BUN, CREATININE, CA)2021-08-25 23:36:02 Test Item Value Reference Range Interpretation Comments NA (test code = 134 mmol/L 135-145 L 9887588165) K (test code = 4.3 mmol/L 3.5-5.0 8589956061) CL (test code = 103 mmol/L 98-108 6183195818) CO2 TOTAL (test code = 22 mmol/L 23-31 L 2055671474) AGAP (test code = 2-16 3074436669) BUN (test code = 40 mg/dL 7-23 H 5822326186) GLUCOSE (test code = 188 mg/dL 70-110 H 8516594624) CREATININE (test code = 1.80 mg/dL 0.50-1.04 H 0390480078) CALCIUM (test code = 8.1 mg/dL 8.6-10.6 L 7318875955) eGFR (test code = mL/min/1.73m2 7468667365) CANDACE (test code = CANDACE) Association of Glomerular Filtration Rate (GFR) and Staging of Kidney Disease* + --+ --+ ------+| GFR (mL/min/1.73 m2) ?| With Kidney Damage ?| ?Without Kidney Damage+ --------+ --------+ +| ?>90 ?| ?Stage one ?| ? Normal ?+ ---+ ---+ -------+| ?60-89 ?| ?Stage two ?| ? Decreased GFR ? + --+ --+ ------+| ?30-59 ?| ?Stage three ?| ? Stage three ? + --+ --+ ------+| ?15-29 ?| ?Stage four ? | ? Stage four ?+ ---+ ---+ -------+| ?<15 (or dialysis) ? ?| ?Stage five ? | ? Stage five ?+ ---+ ---+ -------+ *Each stage assumes the associated GFR level has been in effect for at least three months. ?Stages 1 to 5, with or without kidney disease, indicate chronic kidney disease. Notes: Determination of stages one and two (with eGFR >59mL/min/1.73 m2) requires estimation of kidney damage for at least three months as defined by structural or functional abnormalities of the kidney, manifested by either:Pathological abnormalities or Markers of kidney damage (including abnormalities in the composition of the blood or urine or abnormalities in imaging tests). Lab Interpretation Abnormal (test code = 65748-4) [facility] GLUCOSE (AUTOMATED)2021-08-25 23:35:01 Test Item Value Reference Range Interpretation Comments POCT GLU (test code = 5111381642) 189 mg/dL 70-110 H Lab Interpretation (test code = Abnormal 31605-8) [facility] GLUCOSE (AUTOMATED)2021-08-25 18:15:57 Test Item Value Reference Range Interpretation Comments POCT GLU (test code = 5426783577) 122 mg/dL 70-110 H Lab Interpretation (test code = Abnormal 32941-3) [facility] GLUCOSE (AUTOMATED)2021-08-25 14:01:05 Test Item Value Reference Range Interpretation Comments POCT GLU (test code = 8081956422) 95 mg/dL 70-110 Lab Interpretation (test code = Normal 34437-5) [facility] WITH [id number] 12:08:22 Test Item Value Reference Range Interpretation Comments WBC (test code = See_Comment [Automated 6690-2) message] The sy stem which generated this result transmitted reference range : 4.30 - 11.10 10*3/?L. The reference range was not used to interpret this result as normal/abnormal . RBC (test code = See_Comment L [Automated 789-8) message] The sy stem which generated this result transmitted reference range : 3.93 - 5.25 10*6/?L. The reference range was not used to interpret this result as normal/abnormal . HGB (test code = 9.9 g/dL 11.6-15.0 L 718-7) HCT (test code = 29.9 % 35.7-45.2 L 4544-3) MCV (test code = 93.4 fL 80.6-95.5 787-2) MCH (test code = 30.9 pg 25.9-32.8 785-6) MCHC (test code = 33.1 g/dL 31.6-35.1 786-4) RDW-SD (test code = 46.6 fL 39.0-49.9 16242-5) RDW-CV (test code = 13.6 % 12.0-15.5 788-0) PLT (test code = See_Comment [Automated 777-3) message] The sy stem which generated this result transmitted reference range : 166 - 358 10*3/ ?L. The reference r lay was not used to interpret this result as normal/abnormal . MPV (test code = 10.5 fL 9.5-12.9 41340-6) NRBC/100 WBC (test See_Comment [Automat ed code = 9860319034) message] The system which generated this result transmitted reference range : 0.0 - 10.0 /100 WBCs. The refer ence range was not u sed to interpret th is result as normal/abnormal . NRBC x10^3 (test code <0.01 See_Comment [Auto mated = 1748717798) message] The s ystem which generated this result transmitted reference range : 10*3/?L. The reference range was not used to interpret this result as normal/abnormal . GRAN MAT (NEUT) % 32.5 % (test code = 770-8) IMM GRAN % (test code 0.20 % = 3430370974) LYMPH % (test code = 51.8 % 736-9) MONO % (test code = 9.9 % 5905-5) EOS % (test code = 5.1 % 713-8) BASO % (test code = 0.5 % 706-2) GRAN MAT x10^3(ANC) 1.86 10*3/uL 1.88-7.09 L (test code = 9970079231) IMM GRAN x10^3 (test <0.03 0.00-0.06 code = 2698958981) LYMPH x10^3 (test code 2.97 10*3/uL 1.32-3.29 = 731-0) MONO x10^3 (test code 0.57 10*3/uL 0.33-0.92 = 742-7) EOS x10^3 (test code = 0.29 10*3/uL 0.03-0.39 711-2) BASO x10^3 (test code 0.03 10*3/uL 0.01-0.07 = 704-7) Lab Interpretation Abnormal (test code = 60168-5) [facility] METABOLIC PANEL (NA, K, CL, CO2, GLUCOSE, BUN, CREATININE, CA)2021-08-25 12:06:36 Test Item Value Reference Range Interpretation Comments NA (test code = 134 mmol/L 135-145 L 6460996445) K (test code = 3.8 mmol/L 3.5-5.0 8088510037) CL (test code = 104 mmol/L 98-108 1657652173) CO2 TOTAL (test code = 24 mmol/L 23-31 9054914641) AGAP (test code = 2-16 5807174222) BUN (test code = 36 mg/dL 7-23 H 4160412189) GLUCOSE (test code = 126 mg/dL 70-110 H 0366047633) CREATININE (test code = 1.86 mg/dL 0.50-1.04 H 5295709362) CALCIUM (test code = 8.1 mg/dL 8.6-10.6 L 7386676238) eGFR (test code = mL/min/1.73m2 4700078279) CANDACE (test code = CANDACE) Association of Glomerular Filtration Rate (GFR) and Staging of Kidney Disease* + --+ --+ ------+| GFR (mL/min/1.73 m2) ?| With Kidney Damage ?| ?Without Kidney Damage+ --------+ --------+ +| ?>90 ?| ?Stage one ?| ? Normal ?+ ---+ ---+ -------+| ?60-89 ?| ?Stage two ?| ? Decreased GFR ? + --+ --+ ------+| ?30-59 ?| ?Stage three ?| ? Stage three ? + --+ --+ ------+| ?15-29 ?| ?Stage four ? | ? Stage four ?+ ---+ ---+ -------+| ?<15 (or dialysis) ? ?| ?Stage five ? | ? Stage five ?+ ---+ ---+ -------+ *Each stage assumes the associated GFR level has been in effect for at least three months. ?Stages 1 to 5, with or without kidney disease, indicate chronic kidney disease. Notes: Determination of stages one and two (with eGFR >59mL/min/1.73 m2) requires estimation of kidney damage for at least three months as defined by structural or functional abnormalities of the kidney, manifested by either:Pathological abnormalities or Markers of kidney damage (including abnormalities in the composition of the blood or urine or abnormalities in imaging tests). Lab Interpretation Abnormal (test code = 41239-1) [facility] 12:06:36 Test Item Value Reference Range Interpretation Comments MAGNESIUM (test code = 0835711658) 2.6 mg/dL 1.7-2.4 H Lab Interpretation (test code = Abnormal 47720-2) [facility]21-[facility]-25 02:53:00 Test Item Value Reference Range Interpretation Comments POCT GLU (test code = 9880464016) 129 mg/dL 70-110 H Lab Interpretation (test code = Abnormal 49374-4) [facility] GLUCOSE (AUTOMATED)2021-08-24 23:40:25 Test Item Value Reference Range Interpretation Comments POCT GLU (test code = 4176434959) 118 mg/dL 70-110 H Lab Interpretation (test code = Abnormal 23741-3) [facility] [id number] 23:04:58 Test Item Value Reference Interpretation Comments Range TROPONIN I (test 0.078 ng/mL See_Comment H [Automated code = 3325341535) message] The system which generated this result transmitted reference range : <=0.034. The reference range was not used to interpret this result as normal/abnormal . CANDACE (test code = Reference (Normal) CANDACE) Range (defined by the 99th percentile reference limit): <= 0.034 ng/mL Note: Cardiac troponin begins to rise 3-4 hours after the onset of ischemia. Repeat in 4-6 hours if the sample was drawn within 3-4 hours of the onset of the symptom and found normal. Diagnosis of myocardial injury is made with acute changes in cTn concentrations with at least one serial sample above the 99th percentile upper reference limit (URL), taken together with the patient's clinical presentation. Biotin has been reported to cause a negative bias, interpret results relative to patient's use of biotin. Lab Interpretation Abnormal (test code = 53618-5) [facility] GLUCOSE (AUTOMATED)2021-08-24 18:05:05 Test Item Value Reference Range Interpretation Comments POCT GLU (test code = 8792078158) 306 mg/dL 70-110 H Lab Interpretation (test code = Abnormal 11253-3) [facility]2021-08-24 17:26:36 Test Item Value Reference Range Interpretation Comments EF(Teich) (test code = 65.30 % 8312632358) LVIDD (test code = 3.30 cm 1804173108) LVIDS (test code = 2.17 cm 1015513277) IVS (test code = 1.50 cm 5771579105) LVPWD (test code = 1.29 cm 7580494750) LVOT diameter (test code 2.02 cm = 1528628536) FS (test code = 35 % 4458646496) MV Peak E Collins (test code 166.4 cm/s = 4009691235) MV Peak A Collins (test code 80.5 cm/s = 2664791044) E/A ratio (test code = ratio 3869464397) E wave decelartion time 0.20 s (test code = 9949437398) MV E/e' septal (test 5.7 cm/s code = 3854476292) LA Volume Index (BP) 34.5 mL/m2 (test code = 2178726411) LA volume (BP) (test 68.9 mL code = 5991674932) LAV(MOD-sp2) (test code 66.90 mL = 5188537711) LAV(MOD-sp4) (test code 70.70 mL = 8981334924) Tapse (test code = 2.12 cm 9097494948) Aortic valve mean 151.3 cm/s velocity (test code = 8836585946) Ao peak collins (test code = 234.3 cm/s 7391820874) Ao VTI (test code = 44.8 cm 6434922966) Ao max PG (test code = 22.00 mm[Hg] 5826549635) Triscuspid Valve mmHg Regurgitation Peak Gradient (test code = 0397799635) AV peak gradient (test mmHg code = 0785120892) AV mean gradient (test mmHg code = 5553031798) PW (test code = 1.29 cm 0.6-1.2 9523601072) EF - 2D (test code = 65.30 % 44104187) Interventricular Septum 1.50 cm Diastolic Thickness by 2D (test code = 3308073) MV mean gradient (test mmHg A code = 1723951566) MV peak gradient (test mmHg code = 1379765827) MV pk collins (test code = 181.0 cm/s 3051606279) MV VTI (test code = 43.6 cm 2396885552) MV V2 mean (test code = 103.80 cm/s 6751807083) LVOT stroke volume (test 64.80 cm3 code = 3945576998) LVOT peak collins (test code 96.7 cm/s = 6972668112) LVOT mn grad (test code mmHg = 9841853583) AV LVOT peak gradient mmHg (test code = 5393798871) LVOT peak VTI (test code 20.1 cm = 8276890496) AV area by cont VTI 1.5 cm2 (test code = 9709903648) AV area peak collins (test 1.3 cm2 code = 3117816876) LV V1 mean (test code = 61.40 cm/s 0114979155) MV valve area by 1.49 cm2 continuity eq (test code = 2478054993) AV valve area (test code 1.45 cm2 = 6584946244) TR Peak Collins (test code = 276.2 cm/s 2259138388) Radiology Study observation (narrative) (test code = 32471-4) CANDACE (test code = CANDACE) ?Left?Ventricle: Left ventricle is normal in size and function. Basal septal thickening. Normal systolic function with a visually estimated EF of 60 - 65%. Unable to assess diastolic function due to severe mitral annular calcification. ?Right?Ventricle: Right ventricle is normal in size and function. Normal wall thickness. ?Mitral?Valve: Severe mitral annular calcification. No transvalvular regurgitation. MV mean gradient is 5.0 mmHg. ?Aortic?Valve: Severely thickened cusps. Severely calcified cusps. Consistent with mild to moderate stenosis. AV mean gradient is 10.6 mmHg. AV peak gradient is 22.0 mmHg. AV area by continuity VTI is 1.5 cm2. ?Tricuspid?Valve: Tricuspid valve is normal size and function. Trace transvalvular regurgitation. Right ventricular systolic pressure is 35-40 mmHg. ?IVC/SVC: IVC diameter is less than or equal to 21 mm and decreases greater than 50% during inspiration; therefore the estimated right atrial pressure is normal (~0-5 mmHg). ?IVC normal in size and respiratory variation. VitalsHeight Weight BSA (Calculated - sq m) BP Pulse 5' 6" (1.676 m) 200 lb (90.7 kg) 2.05 sq meters 139/64 80 Lab Interpretation (test Abnormal code = 32863-3) [facility] [id number] 17:07:40 Test Item Value Reference Interpretation Comments Range TROPONIN I (test 0.091 ng/mL See_Comment H [Automated code = 2562033128) message] The system which generated this result transmitted reference range : <=0.034. The reference range was not used to interpret this result as normal/abnormal . CANDACE (test code = Reference (Normal) CANDACE) Range (defined by the 99th percentile reference limit): <= 0.034 ng/mL Note: Cardiac troponin begins to rise 3-4 hours after the onset of ischemia. Repeat in 4-6 hours if the sample was drawn within 3-4 hours of the onset of the symptom and found normal. Diagnosis of myocardial injury is made with acute changes in cTn concentrations with at least one serial sample above the 99th percentile upper reference limit (URL), taken together with the patient's clinical presentation. Biotin has been reported to cause a negative bias, interpret results relative to patient's use of biotin. Lab Interpretation Abnormal (test code = 27249-7) [facility] 14:45:37 Test Item Value Reference Range Interpretation Comments POCT GLU (test code = 1364622238) 129 mg/dL 70-110 H Lab Interpretation (test code = Abnormal 50477-7) [facility] [id number] 13:04:58 Test Item Value Reference Range Interpretation Comments IRON (test code = 7238541972) 93 ug/dL 50-160 TIBC (test code = 5414970806) 253 ug/dL 250-410 % FE SAT (test code = 8570661882) 37 % 20-50 Lab Interpretation (test code = Normal 54976-3) [facility]2022-[facility]-08 12:56:13 Test Item Value Reference Range Interpretation Comments MAGNESIUM (test code = 3073308310) 1.7 mg/dL 1.7-2.4 Lab Interpretation (test code = Normal 72824-8) [facility]oundProthrombin Time / [id number] 12:15:02 Test Item Value Reference Range Interpretation Comments PROTIME PATIENT (test See_Comment [Auto mated message] code = 5964-2) The system [employer] generated this result transmitted ref erence range: 10.1 - 1 2.6 Seconds. The re ference range was not u sed to interpret this result as normal/abnor mal. INR (test code = 6301-6) Nor mal INR <1.1; Warfarin Therap eutic range 2.0 to 3. 0 or 2.5 to 3.5, dep ending upon the indica tions. Lab Interpretation (test Normal code = 98113-6) [facility]oundFerritin [id number] 12:09:22 Test Item Value Reference Range Interpretation Comments FERRITIN (test code = 61.2 ng/mL 11.0-264.0 8692383988) CANDACE (test code = CANDACE) Biotin has been reported to cause a negative bias, interpret results relative to patient's use of biotin. Lab Interpretation (test Normal code = 12787-5) [facility]oundGLYCOSYLATED HEMOGLOBIN (A1C)2021-08-24 11:43:40 Test Item Value Reference Range Interpretation Comments HGB A1C (test code = 9.1 % 4.0-5.7 H 4548-4) CANDACE (test code = CANDACE) Reference RangesNormal: <5.7%Prediabetes: 5.7 - 6.4%Diabetes: > 6.5% Lab Interpretation (test Abnormal code = 49259-3) [facility]oundN-TERMINAL [id number] 10:35:26 Test Item Value Reference Range Interpretation Comments NT-proBNP (test code 1040 pg/mL See_Comment H [Autom ated = 2572231592) message] The system which generated this result transmitted reference range : <=450. The reference range was not used to interpret this result as normal/abnormal . CANDACE (test code = CANDACE) Biotin has been reported to cause a negative bias, interpret results relative to patient's use of biotin. Lab Interpretation Abnormal (test code = 75088-7) [facility]oundTROPONIN [id number] 10:35:26 Test Item Value Reference Interpretation Comments Range TROPONIN I (test 0.110 ng/mL See_Comment H [Automated code = 5170124679) message] The system which generated this result transmitted reference range : <=0.034. The reference range was not used to interpret this result as normal/abnormal . CANDACE (test code = Reference (Normal) CANDACE) Range (defined by the 99th percentile reference limit): <= 0.034 ng/mL Note: Cardiac troponin begins to rise 3-4 hours after the onset of ischemia. Repeat in 4-6 hours if the sample was drawn within 3-4 hours of the onset of the symptom and found normal. Diagnosis of myocardial injury is made with acute changes in cTn concentrations with at least one serial sample above the 99th percentile upper reference limit (URL), taken together with the patient's clinical presentation. Biotin has been reported to cause a negative bias, interpret results relative to patient's use of biotin. Lab Interpretation Abnormal (test code = 48013-5) [facility]ATIC FUNCTION PANEL (92014) (ALB,T.PRO,BILI T,BU/BC,ALT,AST,ALK PHOS)2021-08-24 10:23:05 Test Item Value Reference Range Interpretation Comments TOTAL BILI (test code = 3311156590) 0.9 mg/dL 0.1-1.1 BILI UNCON (test code = 2023972802) 0.5 mg/dL 0.1-1.1 BILI CONJ (test code = 3872560036) 0.0 mg/dL 0.0-0.3 T PROTEIN (test code = 6616230630) 7.0 g/dL 6.3-8.2 ALBUMIN (test code = 4061094384) 3.6 g/dL 3.5-5.0 ALK PHOS (test code = 3758915902) 62 U/L 34-122 ALTv (test code = 1742-6) 18 U/L 5-35 AST(SGOT) (test code = 8689882477) 27 U/L 13-40 Lab Interpretation (test code = Normal 11607-2) [facility] MoundLIPID PANEL (53655)(TOTAL CHOLESTEROL, TRIGLYCERIDES, HDL)2021-08-24 10:23:05 Test Item Value Reference Range Interpretation Comments CHOL (test code = 167 mg/dL 120-200 6518112810) HDL (test code = 51 mg/dL >50 8258214769) HDLC RATIO (test code = See_Comment [Au tomated message] 5768850267) The system [employer] generated this result transmit britton reference range : <=4.5. The refe rence range was not u sed to interpret th is result as normal/abnormal . TRIG (test code = 115 mg/dL 30-170 6178287792) LDL CHOL (test code = 93 mg/dL See_Comment [Auto mated message] 94396-2) The system [employer] generated this result transmit britton reference range : <=160. The refe rence range was not u sed to interpret th is result as normal/abnormal . VLDL (test code = 23 mg/dL 5-60 4439337758) Lab Interpretation (test Normal code = 20543-2) [facility] Metabolic Panel (NA, K, CL, CO2, GLUCOSE, BUN, CREATININE, CA)2021-08-24 10:23:05 Test Item Value Reference Range Interpretation Comments NA (test code = 137 mmol/L 135-145 8396769333) K (test code = 3.9 mmol/L 3.5-5.0 8472969194) CL (test code = 104 mmol/L 98-108 4510176309) CO2 TOTAL (test code = 27 mmol/L 23-31 9019243036) AGAP (test code = 2-16 3668577320) BUN (test code = 20 mg/dL 7-23 8827674894) GLUCOSE (test code = 136 mg/dL 70-110 H 7344309573) CREATININE (test code = 1.17 mg/dL 0.50-1.04 H 0002121452) CALCIUM (test code = 8.2 mg/dL 8.6-10.6 L 0307408416) eGFR (test code = mL/min/1.73m2 3808706134) CANDACE (test code = CANDACE) Association of Glomerular Filtration Rate (GFR) and Staging of Kidney Disease* + --+ --+ ------+| GFR (mL/min/1.73 m2) ?| With Kidney Damage ?| ?Without Kidney Damage+ --------+ --------+ +| ?>90 ?| ?Stage one ?| ? Normal ?+ ---+ ---+ -------+| ?60-89 ?| ?Stage two ?| ? Decreased GFR ? + --+ --+ ------+| ?30-59 ?| ?Stage three ?| ? Stage three ? + --+ --+ ------+| ?15-29 ?| ?Stage four ? | ? Stage four ?+ ---+ ---+ -------+| ?<15 (or dialysis) ? ?| ?Stage five ? | ? Stage five ?+ ---+ ---+ -------+ *Each stage assumes the associated GFR level has been in effect for at least three months. ?Stages 1 to 5, with or without kidney disease, indicate chronic kidney disease. Notes: Determination of stages one and two (with eGFR >59mL/min/1.73 m2) requires estimation of kidney damage for at least three months as defined by structural or functional abnormalities of the kidney, manifested by either:Pathological abnormalities or Markers of kidney damage (including abnormalities in the composition of the blood or urine or abnormalities in imaging tests). Lab Interpretation Abnormal (test code = 30235-2) [facility]oundMagnesium [id number] 10:23:05 Test Item Value Reference Range Interpretation Comments MAGNESIUM (test code = 7838607105) 1.7 mg/dL 1.7-2.4 Lab Interpretation (test code = Normal 54526-1) [facility] with [id number] 09:52:22 Test Item Value Reference Range Interpretation Comments WBC (test code = See_Comment [Automated 9590-2) message] The sy stem which generated this result transmitted reference range : 4.30 - 11.10 10*3/?L. The reference range was not used to interpret this result as normal/abnormal . RBC (test code = See_Comment L [Automated 969-8) message] The sy stem which generated this result transmitted reference range : 3.93 - 5.25 10*6/?L. The reference range was not used to interpret this result as normal/abnormal . HGB (test code = 10.2 g/dL 11.6-15.0 L 718-7) HCT (test code = 31.0 % 35.7-45.2 L 4544-3) MCV (test code = 92.3 fL 80.6-95.5 787-2) MCH (test code = 30.4 pg 25.9-32.8 785-6) MCHC (test code = 32.9 g/dL 31.6-35.1 786-4) RDW-SD (test code = 47.1 fL 39.0-49.9 52887-9) RDW-CV (test code = 13.8 % 12.0-15.5 788-0) PLT (test code = See_Comment [Automated 777-3) message] The sy stem which generated this result transmitted reference range : 166 - 358 10*3/ ?L. The reference r lay was not used to interpret this result as normal/abnormal . MPV (test code = 10.3 fL 9.5-12.9 02991-1) NRBC/100 WBC (test See_Comment [Automat ed code = 0263549216) message] The system which generated this result transmitted reference range : 0.0 - 10.0 /100 WBCs. The refer ence range was not u sed to interpret th is result as normal/abnormal . NRBC x10^3 (test code <0.01 See_Comment [Auto mated = 9138890177) message] The s ystem which generated this result transmitted reference range : 10*3/?L. The reference range was not used to interpret this result as normal/abnormal . GRAN MAT (NEUT) % 43.9 % (test code = 770-8) IMM GRAN % (test code 0.20 % = 3020531008) LYMPH % (test code = 44.0 % 736-9) MONO % (test code = 8.6 % 5905-5) EOS % (test code = 2.6 % 713-8) BASO % (test code = 0.7 % 706-2) GRAN MAT x10^3(ANC) 2.54 10*3/uL 1.88-7.09 (test code = 9444166593) IMM GRAN x10^3 (test <0.03 0.00-0.06 code = 4404124118) LYMPH x10^3 (test code 2.55 10*3/uL 1.32-3.29 = 731-0) MONO x10^3 (test code 0.50 10*3/uL 0.33-0.92 = 742-7) EOS x10^3 (test code = 0.15 10*3/uL 0.03-0.39 711-2) BASO x10^3 (test code 0.04 10*3/uL 0.01-0.07 = 704-7) Lab Interpretation Abnormal (test code = 40971-4) [facility]2021-08-24 02:45:15 Test Item Value Reference Range Interpretation Comments POCT GLU (test code = 2373396848) 252 mg/dL 70-110 H Lab Interpretation (test code = Abnormal 97817-7) [facility]2021-08-24 00:01:12 Test Item Value Reference Range Interpretation Comments POCT GLU (test code = 3412274366) 245 mg/dL 70-110 H Lab Interpretation (test code = Abnormal 74604-1) [facility]
[2021-09-27] MEDS ORDERED: NA CHLORIDE 0.9% 1,000 ML ONE ×3 (10:33→18:09)
--- NOTE | 2021-09-27 10:37 | RAD REPORT ---
EXAM DESCRIPTION: CT - Ct Stroke Brain Wo Cont - 09/27/2021 10:15 am CLINICAL HISTORY: unresponsive, AMS COMPARISON: Head Brain Wo Cont dated 02/08/2019 TECHNIQUE: Axial 5 millimeter thick images of the head were obtained without IV contrast. All CT scans are performed using dose optimization technique as appropriate and may include automated exposure control or mA/KV adjustment according to patient size. FINDINGS: No intracranial hemorrhage, mass, or cerebral edema. No cortical level infarction identifi ed. No cortical edema or sulcal effacement. The atrophy and chronic ischemic pattern is not clearly d ifferent from 2019. Basal ganglia physiologic calcifications are present. There are arterial calcific ations present as well. No extra-axial fluid collections. Abdalla matter-white matter differentiation i s preserved. Mastoid air cells are clear. Patient has extensive right-sided chronic sinusitis similar to compariso n. Findings telephoned to [facility] all 10:25 a.m.. IMPRESSION: No CT evidence of acute intracranial process. Atrophy and chronic ischemic pattern matches the 2019 study. Chronic ischemic changes can mask nonhemorrhagic acute infarction. MR brain followup can be obtained if there is ongoing concern for acute ischemia.
[2021-09-27 10:49] LABS: Absolute Lymphocytes (CBC) 7.2 K/uL (0.7-4.9); Lymphocytes % 49.7 % (15.3-44.8); MPV 8.4 fL (7.6-11.3); RBC Red Blood Cell Count 3.58 M/uL (3.86-4.86)
[2021-09-27 10:53] LABS: Protime INR 0.96
[2021-09-27 11:05] LABS: Barbiturates NEGATIVE (NEGATIVE); Benzodiazepines NEGATIVE (NEGATIVE); Cocaine NEGATIVE (NEGATIVE); METHAMPHETAM NEGATIVE (NEGATIVE); Methadone NEGATIVE (NEGATIVE); Opiates NEGATIVE (NEGATIVE); Phencyclidine NEGATIVE (NEGATIVE); THC Cannibis NEGATIVE (NEGATIVE)
[2021-09-27] MEDS ORDERED: NA CHLORIDE 0.9% 100 ML IV ONE ×2 (11:13→14:04)
[2021-09-27] MEDS ORDERED: LEVETIRACETAM 500 MG/5 ML VIAL IV ONE (11:13)
[2021-09-27 11:15] LABS: Potassium 2.8 mmol/L (3.5-5.1)
[2021-09-27 11:21] LABS: Urine Bacteria 20-50 /HPF (<20); Urine RBC <5 /HPF (NONE SEEN)
[2021-09-27] MEDS ORDERED: KCL 20 MEQ/100 mL IVPB 100 ML IV ONE (11:30)
--- NOTE | 2021-09-27 11:49 | ER ---
Nurse's Notes [facility] Name: Geovanna Del Toro Age: 86 yrs Sex: Female : 1935 Arrival Date: 09/27/2021 Time: 10:05 Bed 6 Private MD: Diagnosis: Altered mental status, unspecified;Cerebellar stroke syndrome Presentation: 09/27 10:10 Chief complaint: EMS states: Found unresponsive by her son. EMS states that her son saw ww her walking down the [place] and heard a thump. Coronavirus screen: At this time, unable to obtain information related to travel outside the [place] Ebola Screen: Unable to complete the Ebola screening because:. Ebola Screen: Unable to complete the Ebola screening because: Patient is unresponsive. Initial Sepsis Screen: Does the patient meet any 2 criteria? RR > 20 per min. Altered Mental Status. Yes Does the patient have a suspected source of infection? No. Patient's initial sepsis screen is negative. Risk Assessment: Do you want to hurt yourself or someone else? Patient reports no desire to harm self or others. Onset of symptoms was September 27, 2021. 10:10 Method Of Arrival: EMS: [email or web address] 10:10 Acuity: ANDERS 2 ww Triage Assessment: 10:54 General: Appears distressed, Behavior is unresponsive. Pain: Unable to use pain scale. ww Patient is unresponsive. Neuro: Level of Consciousness is unresponsive, Facial symmetry appears normal, Pupils are sluggish. Cardiovascular: Patient's skin is warm and dry. Respiratory: Airway is patent Respiratory effort is even, unlabored, Respiratory pattern is regular, symmetrical. GI: No signs and/or symptoms were reported involving the gastrointestinal system. : No signs and/or symptoms were reported regarding the genitourinary system. Derm: Skin is intact. Historical: - Allergies: 10:54 NKA; ww - PMHx: 10:54 CVA; Kidney stones; Hypertension; Hyperlipidemia; Diabetes - IDDM; ww - Immunization history:: Adult Immunizations unknown. - Social history:: Smoking status: unknown. - Family history:: not pertinent. - Hospitalizations: : No recent hospitalization is reported. - History obtained from: daughter. Screenin:58 Abuse screen: unable to ask. Nutritional screening: unable to ask. Tuberculosis ww screening: unable to ask. Fall Risk Fall in past 12 months (25 points). No secondary diagnosis (0 pts). IV access (20 points). Ambulatory Aid- None/Bed Rest/Nurse Assist (0 pts). Gait- Normal/Bed Rest/Wheelchair (0 pts) Mental Status- Overestimates/Forgets Limitations (15 pts.). Total Canales Fall Scale indicates High Risk Score (45 or more points). Fall prevention measures have been instituted. Side Rails Up X 2 Placed Close to Nursing Station 1:1 Attendant Assigned Frequent Obs/Assessments Occuring Family Present and informed to notify staff if the need to leave the bedside As available patient and family educated on Fall Prevention Program and Strategies. Assessment: 10:30 Reassessment: No changes from previously documented assessment. Neuro: Level of ww Consciousness is unresponsive, Seizure activity. 10:56 General: Behavior is unresponsive. Neuro: Level of Consciousness is unresponsive, ww Seizure activity noted at this time. Dr. Rodriguez notified and at bedside. Cardiovascular: Patient's skin is warm and dry. Rhythm is regular. Respiratory: Airway is patent Respiratory effort is unlabored, Respiratory pattern is snoring. GI: Abdomen is round non-distended. : Persaud in place Urine is clear. Derm: Skin is intact. 11:10 Neuro: Seizure activity. ww 11:31 Reassessment: No changes from previously documented assessment. Patient and/or family ww updated on plan of care and expected duration. Pain level reassessed. Neuro: Level of Consciousness is unresponsive. 12:01 Reassessment: No changes from previously documented assessment. Patient and/or family ww updated on plan of care and expected duration. Pain level reassessed. Neuro: Level of Consciousness is unresponsive. 12:27 Reassessment: No changes from previously documented assessment. Patient and/or family ww updated on plan of care and expected duration. Pain level reassessed. patient resting comfortably at this time. Grandson at bedside. 13:00 Reassessment: Patient appears in no apparent distress at this time. No changes from ww previously documented assessment. General: Behavior is unresponsive. Neuro: Level of Consciousness is unresponsive. 13:00 Reassessment: Dr. Rodriguez aware of patients status. ww 14:24 Reassessment: Patient and/or family updated on plan of care and expected duration. Pain ww level reassessed. Neuro: Level of Consciousness is unresponsive. EENT: Eyes right eye pinpoint, left eye 2mm not reacting to light. Dr. Rodriguez notified and at bedside, repeating CT head. 15:00 Reassessment: No changes from previously documented assessment. Patient and/or family ww updated on plan of care and expected duration. Pain level reassessed. repositioned patient with pillows. 15:40 Reassessment: No changes from previously documented assessment. Patient and/or family ww updated on plan of care and expected duration. Pain level reassessed. family at bedside, patient vomited and cleaned up and repositioned. Neuro: Level of Consciousness is unresponsive. 16:33 Reassessment: No changes from previously documented assessment. Patient and/or family ww updated on plan of care and expected duration. Pain level reassessed. Daughter at bedside. Checked blood glucose 285. 17:49 Reassessment: No changes from previously documented assessment. Patient and/or family ww updated on plan of care and expected duration. Pain level reassessed. patient returned from MRI. Dr. Rodriguez talked with family and called a family meeting regarding patients plan of care. Awaiting on family to arrive. 18:31 Reassessment: Etomidate 20mg and 100mg of Succ given in Right forearm. Dr. Rodriguez at ww bedside for intubation. 7.5 tube at 24 at the gum verified by CO2 color change, bilateral breath sounds and CXR. NG tube placed verified by auscultation, gastric contents and CXR. 19:05 Reassessment: patient repositioned, warm blankets applied. Obtained family to visit. ww 19:05 Reassessment: warm blankets applied. Dr. Rodriguez notified. ww 19:20 General: Behavior is unresponsive. Neuro: Level of Consciousness is unresponsive, Right lp1 pupil appears pinpoint, left pupil fixed, non-reactive . Cardiovascular: Rhythm is sinus rhythm. Respiratory: Airway via oral intubation Trachea midline Respiratory pattern is regular, Ventilator assessment: FiO2: 30% Breath sounds are clear bilaterally. : Persaud in place. Derm: Skin is intact, Skin is dry, Skin is normal. 19:29 Reassessment: Pillo hugger applied to patient. lp1 19:29 Reassessment: Dr. Rodriguez explaining plan of care to patient's family, aware of pending lp1 transfer to [facility]. 19:35 Reassessment: Report given to [facility] with [facility]; ETA 10 minutes. lp1 19:42 Reassessment: Nurse to Nurse report given to ALBERT Scherer for patient transfer to [address] Neuro ICU. 20:08 Reassessment: [facility] at bedside for transfer. lp1 Vital Signs: 10:10 BP 172 / 50; Pulse 75; Resp 26; Temp 98.4; Pulse Ox 98% on R/A; Weight 108.86 kg; ww Height 5 ft. 8 in. (172.72 cm); Pain 0/10; 10:58 BP 162 / 65; Pulse 74; Resp 26; ww 11:00 BP 105 / 86; Pulse 79; Resp 16 S; Pulse Ox 95% on 1 lpm NC; jg9 11:30 BP 137 / 55; Pulse 76; Resp 13 S; Pulse Ox 96% on 1 lpm NC; jg9 12:30 BP 129 / 56; Pulse 91; Resp 13 S; Pulse Ox 97% on R/A; jg9 13:00 BP 121 / 53; Pulse 85; Resp 17 S; Pulse Ox 96% on R/A; jg9 13:45 BP 134 / 50; Pulse 85; Resp 16 S; Pulse Ox 95% on R/A; jg9 14:15 BP 144 / 60; Pulse 89; Resp 19; ww 14:40 BP 136 / 54; Pulse 88; Resp 14; Pulse Ox 98% on 2 lpm NC; ww 15:15 BP 172 / 73; Pulse 92; Resp 20; ww 15:45 BP 154 / 67; Pulse 96; Resp 21; ww 16:15 BP 131 / 51; Pulse 88; Resp 12; Pulse Ox 99% on 2 lpm NC; ww 17:52 BP 128 / 139; Pulse 82; Resp 14; Pulse Ox 99% on 2 lpm NC; ww 18:35 BP 133 / 56; Pulse 82; Resp 17; Pulse Ox 100% on 30% FiO2 ETT vent; ww 19:00 BP 112 / 69; Pulse 87; Resp 20; Temp 94.9; Pulse Ox 98% on 30% FiO2 ETT vent; ww 19:30 BP 132 / 64; Pulse 71; Resp 20; Pulse Ox 99% on 30% FiO2 ETT vent; lp1 10:10 Body Mass Index 36.49 (108.86 kg, 172.72 cm) Snyder Coma Score: 11:30 Eye Response: none(1). Verbal Response: none(1). Motor Response: flexion ww (decorticate)(3). Total: 5. 19:00 Eye Response: none(1). Verbal Response: none(1). Motor Response: none(1). Modifying lp1 Factors: Intubated. Total: 3. 11:30 Dr. Rodriguez notified and aware of patients status. Maintain airway ww ED Course: 10:05 Patient arrived in ED. rn 10:05 Júnior Rodriguez MD is Attending Physician. rn 10:10 Patient has correct armband on for positive identification. Placed in gown. Bed in low ww position. Call light in reach. Side rails up X2. Adult w/ patient. melter caster on. NIBP on. 10:10 Maintain EMS IV. Dressing intact. Good blood return noted. Site clean \T\ dry. Gauge \T\ ww site: 18g right forearm. IV Flushed. 10:16 CT Stroke Brain w/o Contrast In Process Unspecified. EDMS 10:28 Ebonie Saini, RN is Primary Nurse. ww 10:54 Triage completed. ww 10:54 Arm band placed on. ww 11:15 Notified ED physician of a critical lab result(s). lactate 3.3 and potassium 2.8 as aa5 reported by lab. 11:46 Claude Fontana MD is Hospitalizing Provider. rn 12:02 Stroke CXR 1 View In Process Unspecified. EDMS 13:54 No apparent distress. Resting quietly. jg9 14:47 CT Head Brain wo Cont In Process Unspecified. EDMS 17:20 Brain Wo Cont In Process Unspecified. EDMS 17:57 initiated transfer to [facility]. bd 18:31 Assisted provider with intubation using 7.5 mm ETT via oral route. ET tube secured at ww 24cm at the gums. Set up intubation tray. Intubated by Júnior Rodriguez MD Placement verified by CO2 detector w/ + color change, auscultating bilateral breath sounds, CXR, Patient tolerated well. 18:40 NGT: inserted 16 Fr. via left nare. verified placement of air over stomach, verified ww return of gastric contents, Placement verified by X-ray, to intermittent suction. Returned bile. Patient tolerated well. 19:08 Chest Single View XRAY In Process Unspecified. EDMS 19:26 initiated transfer to [facility] ,pt accepted in transfer by dr Serrano, admin approval bd given by Flores Hou. 20:08 Patient transferred, IV remains in place. lp1 Administered Medications: 10:10 Drug: NS 0.9% 1000 ml Route: IV; Rate: 1000 ml; Site: right forearm; ww 11:15 Drug: Keppra (levETIRAcetam) 1000 mg Route: IV; Rate: calculated rate; Site: right ww forearm; 11:31 Drug: Potassium Chloride 20 mEq Route: IV; Rate: calculated rate; Site: right forearm; ww 11:35 Drug: NS 0.9% 500 ml Route: IV; Rate: bolus; Site: right forearm; ww 13:40 Drug: Rocephin (cefTRIAXone) 1 grams Route: IV; Rate: calculated rate; Site: right ww forearm; 18:00 Drug: NS 0.9% 1000 ml Route: IV; Rate: 1000 ml; Site: right forearm; ww 19:17 Follow up: IV Status: Completed infusion; IV Intake: 1000ml lp1 18:00 Drug: foLIC Acid 1 mg Route: IVPB; Site: right forearm; ww 18:53 Drug: Dilaudid (HYDROmorphone) 1 mg Route: IVP; Site: right forearm; ww 18:54 Drug: Versed (midazolam) 3 mg Route: IVP; Site: right forearm; ww Intake: 19:17 IV: 1000ml; Total: 1000ml. lp1 Output: 19:49 Urine: 500ml (Persaud); Total: 500ml. lp1 Outcome: 11:48 Decision to Hospitalize by Provider. rn 19:28 ER care complete, transfer ordered by . rn 19:29 critical lp1 19:29 Instructed on the need for transfer. 20:09 Transferred by helicopter to [facility], Transfer form completed. X-rays sent lp1 w/ patient. 20:10 Patient left the ED. lp1 Signatures: Dispatcher [employer] EDMS Airam Goodwin Roman, MD MD rn Calderon, Audri, ALEBRT RN aa5 Rhonda Odonnell RN RN lp1 Barbara Mendoza RN RN jg9 Ebonie Saini RN RN ww Corrections: (The following items were deleted from the chart) 11:42 11:30 BP 137 / 55; Pulse 76bpm; Resp 13bpm; Spontaneous; jg9 jg9 19:21 13:00 Neuro: Level of Consciousness is unresponsive, [facility] 19:00 BP 112 / 69; Pulse 87bpm; Resp 20bpm; Pulse Ox 98% FiO2 30% vent; lp1 : 19:00 GCS: 3, lp1 lp1
--- NOTE | 2021-09-27 11:49 | EDPHYS ---
Physician Documentation [facility] Name: Geovanna Del Toro Age: 86 yrs Sex: Female : 1935 Arrival Date: 09/27/2021 Time: 10:05 Bed 6 Private MD: ED Physician Júnior Rodriguez HPI: 09/27 17:21 This 86 yrs old Black Female presents to ER via EMS with complaints of AMS. rn 17:21 The patient presents with decreased responsiveness. Onset: The symptoms/episode rn began/occurred at an unknown time. Possible causes: unknown. Associated signs and symptoms:. Current symptoms: In the emergency department the patient's symptoms are unchanged from the initial presentation. The patient has not experienced similar symptoms in the past. It is unknown whether or not the patient has recently seen a physician. Per family, last seen her was 2129 last night, patient went to bed, other family member heard her groaning this AM and called 911 because couldn't wake her up. No known trauma. Didn't fall out of bed. . Historical: - Allergies: 10:54 NKA; ww - PMHx: 10:54 CVA; Kidney stones; Hypertension; Hyperlipidemia; Diabetes - IDDM; ww - Immunization history:: Adult Immunizations unknown. - Social history:: Smoking status: unknown. - Family history:: not pertinent. - Hospitalizations: : No recent hospitalization is reported. - History obtained from: daughter. ROS: 17:21 Unable to obtain ROS due to altered mental status, obtunded state. rn Exam: 17:21 Constitutional: This is a well developed, well nourished patient who is breathing rn regularly, grimaces to pain Head/Face: Normocephalic, atraumatic. Eyes: Left pupil 2mm, right pupil 4mm Cardiovascular: Regular rate and rhythm. No pulse deficits. Respiratory: No increased work of breathing, no retractions or nasal flaring. Abdomen/GI: Soft, non-tender, non-distended Skin: Warm, dry MS/ Extremity: Pulses equal, no cyanosis. Neuro: Obtunded, grimaces to pain, does not withdraw from painful stimuli, + gag reflex present Vital Signs: 10:10 BP 172 / 50; Pulse 75; Resp 26; Temp 98.4; Pulse Ox 98% on R/A; Weight 108.86 kg; ww Height 5 ft. 8 in. (172.72 cm); Pain 0/10; 10:58 BP 162 / 65; Pulse 74; Resp 26; ww 11:00 BP 105 / 86; Pulse 79; Resp 16 S; Pulse Ox 95% on 1 lpm NC; jg9 11:30 BP 137 / 55; Pulse 76; Resp 13 S; Pulse Ox 96% on 1 lpm NC; jg9 12:30 BP 129 / 56; Pulse 91; Resp 13 S; Pulse Ox 97% on R/A; jg9 13:00 BP 121 / 53; Pulse 85; Resp 17 S; Pulse Ox 96% on R/A; jg9 13:45 BP 134 / 50; Pulse 85; Resp 16 S; Pulse Ox 95% on R/A; jg9 14:15 BP 144 / 60; Pulse 89; Resp 19; ww 14:40 BP 136 / 54; Pulse 88; Resp 14; Pulse Ox 98% on 2 lpm NC; ww 15:15 BP 172 / 73; Pulse 92; Resp 20; ww 15:45 BP 154 / 67; Pulse 96; Resp 21; ww 16:15 BP 131 / 51; Pulse 88; Resp 12; Pulse Ox 99% on 2 lpm NC; ww 17:52 BP 128 / 139; Pulse 82; Resp 14; Pulse Ox 99% on 2 lpm NC; ww 18:35 BP 133 / 56; Pulse 82; Resp 17; Pulse Ox 100% on 30% FiO2 ETT vent; ww 19:00 BP 112 / 69; Pulse 87; Resp 20; Temp 94.9; Pulse Ox 98% on 30% FiO2 ETT vent; ww 19:30 BP 132 / 64; Pulse 71; Resp 20; Pulse Ox 99% on 30% FiO2 ETT vent; lp1 10:10 Body Mass Index 36.49 (108.86 kg, 172.72 cm) ww Shirley Coma Score: 11:30 Eye Response: none(1). Verbal Response: none(1). Motor Response: flexion ww (decorticate)(3). Total: 5. 19:00 Eye Response: none(1). Verbal Response: none(1). Motor Response: none(1). Modifying lp1 Factors: Intubated. Total: 3. 11:30 Dr. Rodriguez notified and aware of patients status. Maintain airway ww Procedures: 18:32 Intubation: Ventilated with 100% NRB prior to procedure. O2 saturation prior to mba intern was 98 %. Intubated orally using # 4 Theodore blade with 7.5 mm ETT. was successful on first attempt. Cricoid pressure applied during procedure. Tube secured at right side of mouth measured 24 cm at gum. Placement verified by CO2 detector with (+) color change, auscultating bilateral breath sounds, O2 saturation after procedure was 98 %. Patient tolerated well. MDM: 10:05 Patient medically screened. rn 11:02 ED course: Family states walked by her room this AM, heard groaning and moaning, last rn known normal 2129 last night. No hx of seizures. CT head no acute findings. Outside of TPA window. . 17:21 Differential Diagnosis: CVA, electrolyte abnormality, hypoglycemia, intracranial bleed, rn seizure, TIA, UTI. Data reviewed: vital signs, nurses notes, lab test result(s), radiologic studies, CT scan, and as a result, I will admit patient. Counseling: I had a detailed discussion with the patient and/or guardian regarding: the historical points, exam findings, and any diagnostic results supporting the discharge/admit diagnosis, lab results, radiology results, the need for further work-up and treatment in the hospital. Response to treatment: There is no appreciated change of the patient's symptoms at this time. Admission orders: after a detailed discussion of the patient's condition and case, the admit orders are written by me. 17:47 ED course: I spoke with grandson, he states last known normal had to be last night.. rn 17:51 ED course: Pt with significant posterior CVA pattern including bilateral cerebellum, rn midbrain, and left basal ganglia. Waiting for patient's family to arrive to talk more about care. Outside of TPA window given last known completely normal was last night. Was noted by single family member to be walking this AM, but bumping into objects already at that point. Family wants her transferred to [facility]. Trying to get family to consent for airway protection via intubation.. 18:02 ED course: Had long discussion with multiple family members regarding diagnosis of rn severe posterior stroke, they states they want everything done and want her intubated and transferred. I asked multiple family members and consensus was last known to be completely normal was last night. Explained to them that outside of tpa window, and that I would attempt transfer for higher level of care given they could possible do intraarterial procedure and other procedures that we cannot, they agree. . 18:12 ED course: Dr. 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 Told him I understand this but family insists everything be done and they request transfer to [facility] specifically because she has been taken care of there before. . 18:25 ED course: Spoke with another neurologist at [facility], who does not believe transfer is rn indicated. . ED course: Another family member just arrived and states does not want her to go to [facility], wants her to be lifeflighted to [facility]. . 18:32 ED course: Pt intubated for airway protection, will try and transfer to [facility] for higher level stroke care. Family updated, seem very frustrated and upset, explained to them that transfers take a while, and have already been told by 2 neurologists that they do not expect a good outcome and that they don't even believe she should be transferred. . 18:45 ED course: Consulting right now with stroke fellow at [facility], they are going rn to consult with their attending, and they want images sent. . 19:06 ED course: Accepted for transfer to [facility] system via lifeflight. . rn 19:24 ED course: More family showed up, still cannot confirm if normal this AM, most accurate rn is still last known completely normal was last night. She was seen "moving around" and "groaning" this AM but was not investigated further to see if at or off baseline.. 09/27 10:06 Order name: Basic Metabolic Panel; Complete Time: 11: rn 09/27 10:06 Order name: CBC with Diff; Complete Time: : rn 09/27 10:06 Order name: Protime (+inr); Complete Time: 11: rn 09/27 10:06 Order name: Ptt, Activated; Complete Time: 11: rn 09/27 10:06 Order name: UDS; Complete Time: 11: rn 09/27 10:07 Order name: Urine Culture rn 09/27 10:07 Order name: Urine Microscopic Only; Complete Time: 11:38 rn 09/27 10:07 Order name: Blood Culture Adult (2) rn 09/27 10:07 Order name: Procalcitonin; Complete Time: 11:21 rn 09/27 10:07 Order name: Lactate; Complete Time: 11:21 rn 09/27 10:38 Order name: Glucose, Ancillary Testing; Complete Time: 10:44 EDMS 09/27 12:14 Order name: COVID-19 SARS RT PCR (Document "Date of Onset" if Symptomatic); Complete ww Time: 14:19 09/27 10:06 Order name: CT Stroke Brain w/o Contrast; Complete Time: 10:44 rn 09/27 10:06 Order name: Stroke CXR 1 View; Complete Time: 12:34 rn 09/27 14:22 Order name: CT Head Brain wo Cont; Complete Time: 17:16 rn 09/27 14:59 Order name: Lactate Sepsis 2 HR Follow-up; Complete Time: 17:16 EDMS 09/27 16:45 Order name: Glucose, Ancillary Testing; Complete Time: 17:16 EDMS 09/27 17:20 Order name: Brain Wo Cont; Complete Time: 17:46 EDMS 09/27 18:43 Order name: Chest Single View XRAY aa5 09/27 10:06 Order name: EKG; Complete Time: 10:07 rn 09/27 10:06 Order name: Accucheck; Complete Time: 10:49 rn 09/27 10:06 Order name: Cardiac monitoring; Complete Time: 10:49 rn 09/27 10:06 Order name: EKG - Nurse/Tech; Complete Time: 10:50 rn 09/27 10:06 Order name: IV Saline Lock; Complete Time: 10:50 rn 09/27 10:06 Order name: Labs collected and sent; Complete Time: 10:50 rn 09/27 10:06 Order name: NPO; Complete Time: 10:50 rn 09/27 10:06 Order name: O2 Per Protocol; Complete Time: 10:50 rn 09/27 10:06 Order name: O2 Sat Monitoring; Complete Time: 10:50 rn 09/27 10:07 Order name: Urine Dipstick-Ancillary (obtain specimen); Complete Time: 10:49 rn Administered Medications: 10:10 Drug: NS 0.9% 1000 ml Route: IV; Rate: 1000 ml; Site: right forearm; ww 11:15 Drug: Keppra (levETIRAcetam) 1000 mg Route: IV; Rate: calculated rate; Site: right ww forearm; 11:31 Drug: Potassium Chloride 20 mEq Route: IV; Rate: calculated rate; Site: right forearm; ww 11:35 Drug: NS 0.9% 500 ml Route: IV; Rate: bolus; Site: right forearm; ww 13:40 Drug: Rocephin (cefTRIAXone) 1 grams Route: IV; Rate: calculated rate; Site: right ww forearm; 18:00 Drug: NS 0.9% 1000 ml Route: IV; Rate: 1000 ml; Site: right forearm; ww 19:17 Follow up: IV Status: Completed infusion; IV Intake: 1000ml lp1 18:00 Drug: foLIC Acid 1 mg Route: IVPB; Site: right forearm; ww 18:53 Drug: Dilaudid (HYDROmorphone) 1 mg Route: IVP; Site: right forearm; ww 18:54 Drug: Versed (midazolam) 3 mg Route: IVP; Site: right forearm; ww Disposition: 19:02 Critical Care:. 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 Total time: 55 minutes Signatures: Dispatcher [employer] EDMS David Cervantes PA PA jmm Nieto, Roman, MD MD rn Pena, Laura, RN RN lp1 Ebonie Saini RN RN ww Corrections: (The following items were deleted from the chart) 17:11 15:37 MR STROKE PROTOCOL+MRI.RAD.BRZ ordered. EDMS EDMS 17:20 17:11 MRA Head Wo Cont ordered. EDMS EDMS 17:56 17:47 ED course: I spoke with son, he states last known normal had to be last night.. rnrn 17:56 17:51 ED course: Pt with significant posterior CVA pattern including bilateral rn cerebellum, midbrain, and left basal ganglia. Waiting for patient's family to arrive to talk more about care. Outside of TPA window given last known completely normal was last night. Was noted by single family member to be walking this AM, but bumping into objects already at that point. Family wants her transferred to [facility]. Trying to get family to consent for airway protection via intubation.. rn : 11:48 Inpatient Admission rn rn : 11:48 OmitClaude walton rn rn : 11:48 Telemetry/MedSurg (Inpatient) rn rn 11:48 Stable rn rn : 11:48 new rn rn : 11:48 are unchanged rn rn : 11:48 Standard rn rn : 11:48 rn rn 19: 11:48 Epileptic seizures related to external causes, not intractable rn rn : 11:48 UTI/ Urinary tract infection, site not specified rn rn : 11:48 Hypokalemia rn rn 19:45 19:39 Head Angio+CT.RAD.BRZ ordered. EDMS EDMS 19:45 19:40 Neck Angio+CT.RAD.BRZ ordered. EDMS EDMS 20:02 12:38 NPO ordered. EDMS EDMS 20:02 12:38 CBC with Automated Diff ordered. EDMS EDMS 20:02 12:38 CBC with Automated Diff ordered. EDMS EDMS 20:02 12:38 Comprehensive Metabolic Panel ordered. EDMS EDMS 20:02 12:38 Comprehensive Metabolic Panel ordered. EDMS EDMS 20:02 12:38 Magnesium ordered. EDMS EDMS 20:02 12:38 Magnesium ordered. EDMS EDMS 20:02 12:38 Phosphorus ordered. EDMS EDMS 20:02 12:38 Phosphorus ordered. EDMS EDMS 20:03 13:38 EEG Request ordered. EDMS EDMS 20:10 19:28 rn lp1
--- NOTE | 2021-09-27 12:18 | RAD REPORT ---
EXAM DESCRIPTION: RAD - Chest Single View - 09/27/2021 12:00 pm CLINICAL HISTORY: unresponsive, Stroke protocol chest film COMPARISON: January 2019 TECHNIQUE: AP portable chest image was obtained 09/27/2021 12:00 pm . FINDINGS: No focal mass or consolidations seen. Interstitial markings are prominent in both lung fie lds favored to be baseline for the patient. A mild interstitial edema cannot be excluded. Vasculature is mildly prominent. Granulomatous calcifications are present. Heart size is normal range, accentuated by slight rotation and supine positioning. No measurable pleu ral effusion and no pneumothorax. No acute bony abnormality seen. No acute aortic findings suspected. IMPRESSION: Prominent interstitial lung pattern is present believed to be baseline. Mild interstitial edema or infiltrate cannot be excluded.
--- NOTE | 2021-09-27 12:31 | P.HP ---
Certification for Inpatient Patient admitted to: Inpatient Practitioner: I am a practitioner with admitting privileges, knowledge of patient current condition, hospital course, and medical plan of care. Services: Services provided to patient in accordance with Admission requirements found in Title 42 Section 412.3 of the Code of Federal Regulations Patient History Date of Service: 09/27/21 Reason for admission: UTI, possible seizures, AMS History of Present Illness: 86-year-old female patient with medical history significant for hyperlipidemia, diabetes type 2, hypertension, who was evaluated in the emergency room for episode of altered mentation. Family reported seizure-like activity. In the ED she was found to have had issues with altered mentation and poor responsiveness at home as per family member. She was said to have no falls, chest pain, nausea with vomiting episode prior to encounter. She also had no reported diarrhea. In the ED she was worked up with imaging that revealed no significant CT findings of abnormality. Labs however revealed hypokalemia and UA was highly concerning for urinary tract infection. She was started on Keppra for possible seizures and she was started on empiric antibiotic Rocephin for UTI. She was admitted for inpatient care. Neurology was consulted for management recommendation based on the abnormal neurologic state. Allergies No Known Drug Allergies Allergy (Verified 09/04/15 17:13) Unknown No Known Allergies Allergy (Uncoded 09/04/15 16:35) Unknown Home medications list reviewed: Yes Home Medications: Gabapentin [Neurontin*] 100 mg PO TID 09/04/15 Hydralazine [Apresoline*] 10 mg PO QID 09/04/15 Losartan/Hydrochlorothiazide [Hyzaar 100-25 Tablet] 1 tab PO DAILY 09/04/15 Ranitidine [Zantac*] 150 mg PO BID 09/04/15 Amlodipine [Norvasc*] 10 mg PO DAILY 02/08/19 Atorvastatin Calcium 20 mg PO DAILY 02/08/19 Insulin NPH Hum/Reg Insulin Hm [Humulin 70/30 Kwikpen] 40 units SQ BID 02/08/19 Insulin NPH Hum/Reg Insulin Hm [Humulin 70/30 Kwikpen] 70 units SQ BID 02/08/19 Ciprofloxacin HCl [Cipro 500 MG Tablet] 500 mg PO BID #14 tab 02/10/19 Metoprolol Tartrate [Lopressor*] 50 mg PO BID #60 tab 08/25/19 metroNIDAZOLE [Flagyl] 500 mg PO Q8H #21 tablet 02/10/19 - Past Medical/Surgical History Diabetic: Yes -: Hypertension -: Chronic renal disease stage 3 -: Diabetes mellitus type 2, insulin dependent -: Osteoarthritis -: Hyperlipidemia -: Diabetic neuropathy -: GERD -: Tubal ligation -: bilat cataract removal Psychosocial/ Personal History: Patient lives at home with son. - Family History Mother -: Cancer Notes: doesn't "know what name it was". mother & DTR Father Notes: "passed when I was a little baby" - Social History Alcohol use: No CD- Drugs: No Caffeine use: No Review of Systems is unable to be obtained (due to altered mental status.) Physical Examination - Physical Exam General: Delirious HEENT: Atraumatic, Normocephalic Neck: Supple Respiratory: Normal air movement Cardiovascular: Regular rate/rhythm, Normal S1 S2 Gastrointestinal: Soft and benign Neurological: Other (Delirious) - Studies Laboratory Data (last 24 hrs) 09/27/21 10:23: PT 10.5, INR 0.96, APTT 25.0 09/27/21 10:23: WBC 14.5 H, Hgb 11.2 L, Hct 33.0 L, Plt Count 238 09/27/21 10:23: Sodium 140, Potassium 2.8 L*, BUN 26 H, Creatinine 1.50 H, Glucose 197 H Assessment and Plan - Plan 1. Altered mentation: Deemed secondary to toxic metabolic encephalopathy issues. There is also suspicion for seizures. We will continue empiric antibiotic of Rocephin for UTI and obtain EEG. We will continue antiseizure medication with Keppra. Neurology consulted. 2. UTI: UA slightly concerning for Empiric antibiotic Rocephin started. We will obtain urine culture for evaluation. 3. Diabetes type 2: We will have patient on 6 every 6 glucose checks since she is n.p.o. We will start Lantus insulin for glucose control as needed. 4. Hypertension: We will monitor vital signs per unit protocol and continue antihypertensive medications. 5. Possible seizures: Patient does have significant reports of seizure-like activity at home. We will obtain EEG to evaluate. We will continue Keppra for management. Neurology consulted. 6. Hypokalemia: Potassium is low at 2.7. we will replete and monitor. 7. CECILIO vs CKD. Cr is elevated at 1.5. we will start IV fluid. Nephrology to be consulted as needed. Prophylaxis: Lovenox for DVT prophylaxis. CODE STATUS: Full code pending further review. - Advance Directives Does patient have a Living Will: No Does patient have a Durable POA for Healthcare: No
[2021-09-27] MEDS ORDERED: ONDANSETRON 4 MG/2 ML VIAL IV PRN (12:32)
[2021-09-27] MEDS ORDERED: NA CHLORIDE 0.9% 1,000 ML IV SCH (13:00)
[2021-09-27] MEDS ORDERED: ENOXAPARIN 30 MG/0.3 ML SQ SCH (14:00)
[2021-09-27] MEDS ORDERED: CEFTRIAXONE 1,000 MG in NA CHLORIDE 0.9% 50 ML IVPB SCH (14:00)
[2021-09-27] MEDS ORDERED: CEFTRIAXONE 1000 MG/VIAL ONE (14:03)
--- NOTE | 2021-09-27 14:51 | RAD REPORT ---
EXAM DESCRIPTION: CT - Head Brain Wo Cont - 09/27/2021 2:45 pm CLINICAL HISTORY: change in pupil exam Headache, drowsiness COMPARISON: Ct Stroke Brain Wo Cont dated 09/27/2021; Head Brain Wo Cont dated 02/08/2019 TECHNIQUE: All CT scans are performed using dose optimization technique as appropriate and may inclu de automated exposure control or mA/KV adjustment according to patient size. FINDINGS: No intracranial hemorrhage, hydrocephalus or extra-axial fluid collection.Mild brain atrop hy with mild periventricular and deep white matter chronic microvascular ischemic changes.No areas of brain edema or evidence of midline shift. 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 Right frontal and right eth moid as well as right aspect of the sphenoid sinus also involved. The calvarium is intact. IMPRESSION: No acute intracranial abnormality. Significant right-sided sinus disease as detailed.
--- NOTE | 2021-09-27 17:33 | RAD REPORT ---
EXAM DESCRIPTION: MRI - Brain Wo Cont - 09/27/2021 5:19 pm CLINICAL HISTORY: MENTAL STATUS CHANGE Headache, drowsiness COMPARISON: Head Brain Wo Cont dated 09/27/2021 TECHNIQUE: Multi-sequence, multiplanar MR imaging of the brain was performed without contrast. FINDINGS: There is significant elevated T2 and FLAIR signal in both superior cerebral hemispheres as well as the cerebellar vermis. There is significant restricted diffusion seen with diminished ADC signal involving both cerebellar h emispheres, cerebellar vermis portions of the midbrain left basal ganglia. This is likely related to CVA. No hemorrhage or midline shift. Extensive right-sided paranasal sinus disease is present with expansi on of the right maxillary sinus. IMPRESSION: Significant CVA pattern is seen involving both cerebellar hemispheres, cerebellar vermis , portions of the midbrain and left basal ganglia. The pattern is probably indicative of significant flow abnormality involving the vertebrobasilar system, probably the basilar artery.
[2021-09-27] MEDS ORDERED: RSI MEDICATION KIT IV ONE (17:52)
[2021-09-27] MEDS ORDERED: FOLIC ACID 5 MG/ML VIAL ONE (18:10)
[2021-09-27] MEDS ORDERED: MIDAZOLAM HCL 2 MG/2 ML INJ ONE (18:54)
[2021-09-27] MEDS ORDERED: HYDROMORPHONE HCL 1 MG/ML INJ ONE (18:55)
[2021-09-27] MEDS ORDERED: levETIRAcetam 1,000 MG in NA CHLORIDE 0.9% 100 ML IV SCH (21:00)
[2021-09-28 00:31] VITALS: TEMP 94.9
[2021-09-28 00:33] VITALS: BP 132/64; O2SAT 99
--- NOTE | 2021-09-28 08:05 | RAD REPORT ---
EXAM DESCRIPTION: RAD - Chest Single View - 09/28/2021 7:55 am CLINICAL HISTORY: intubation COMPARISON: Chest Single View dated 09/27/2021; Chest Single View dated 02/08/2019; Chest Single View dated 09/07/2018; Chest Single View dated 10/12/2017 FINDINGS: Interval intubation. The endotracheal tube tip terminates at the barbra those angulated to kiser the right side. It should be retracted 3 cm. Enteric tube overlying the stomach. Diffuse promine nce of the pulmonary interstitium. Cardiomegaly IMPRESSION: Endotracheal tube angulated toward the right mainstem bronchus but at the barbra. Sugges t retraction by 3 cm. Enteric tube in satisfactory position.
--- NOTE | 2021-09-29 11:06 | EKG ---
Test Date: 2021-09-27 Test Time: 10:31:06 Auction Block Clerk: BAUTISTA MEASUREMENT RESULTS: Intervals: Rate: 78 SD: QRSD: 82 QT: 408 QTc: 465 [place]: P: SD: QRS: -1 T: 30 INTERPRETIVE STATEMENTS: Atrial fibrillation Nonspecific ST abnormality Abnormal ECG Compared to ECG 02/08/2019 12:44:51 ST (T wave) deviation now present Left ventricular hypertrophy no longer present Electronically Signed On 09-29-21 10:58:18 CDT by Valdez Peañ
== END 2021-09-27 20:10 | disposition short-term general hospital (02) ==
LOC: ER 09:58
DX: G46.4 Cerebellar stroke syndrome (principal); E11.22 Type 2 diabetes mellitus with diabetic chronic kidney disease; I12.9 Hypertensive chronic kidney disease with stage 1 through stage 4 chronic kidney disease, or unspecified chronic kidney disease; N18.30 Chronic kidney disease, stage 3 unspecified; E78.5 Hyperlipidemia, unspecified; N39.0 Urinary tract infection, site not specified; Z20.822 Contact with and (suspected) exposure to COVID-19; Z86.73 Personal history of transient ischemic attack (TIA), and cerebral infarction without residual deficits; Z87.442 Personal history of urinary calculi; Z79.4 Long term (current) use of insulin
CPT/HCPCS: 93005; 87040 ×2; 87088; 85025; 87086; 80048; 36415; 87205; 85610; 82947 ×2; 83605 ×2; 85730; 81015; 84145; 80307; 70450 ×2; 71045 ×2; 70551; 94002; 94003; U0003; J0330; J3480; J2250; J1953; J1170; J7030 ×3; 31500; 96361; 96374; 96375; 99291